=== PATIENT | female | born 1945 | race Caucasian/White ===

== ENCOUNTER → 2021-06-03 13:23 | Outpatient (CLI) | payer MEDICARE, SELFPAY ==
--- NOTE | ~2021-06-03 | DEXA_ITS ---
Bone Density Report Name: Mary Hoang Age: 75 Sex: Female Ethnicity: White Date of : 1945 Indication: postmenopausal; screening for osteoporosis; height loss; history of glucocorticoids; asthma or emphysema; Referring Provider: Andrew Del Rio Study: Bone densitometry was performed. Exam Date: June 03, 2021 Accession number: [id number] Bone Density: Region BMD T-score Z-score Classification AP Spine (L1-L4) 1.124 0.7 3.0 Normal Femoral Neck (Left) 0.779 -0.6 1.4 Normal Total Hip (Left) 1.047 0.9 2.6 Normal Femoral Neck (Right) 0.764 -0.8 1.2 Normal Total Hip (Right) 0.968 0.2 1.9 Normal Total Hip Mean 1.008 0.6 2.3 Normal World Health Organization criteria for BMD impression classify patients as: Normal (T-score at or above -1.0), Osteopenia (T-score between -1.0 and -2.5), or Osteoporosis (T-score at or below -2.5). 10-year Fracture Risk: FRAX not reported because: All T-scores for Spine Total, Hip Total, Femoral Neck at or above -1.0 Previous Exams: Region Exam Age BMD T-score BMD Change BMD Change Date g/cm2 vs Baseline vs Previous AP Spine(L1-L4) 06/03/2021 75 1.124 0.7 -0.151* -0.122* 07/01/2018 72 1.246 1.8 -0.029* -0.077* 05/27/2016 70 1.323 2.5 0.049* 0.019 08/11/2010 64 1.304 2.3 0.029* 0.017 04/25/2007 61 1.287 2.2 0.012 0.012 10/17/2004 59 1.275 2.1 Total Hip(Left) 06/03/2021 75 1.047 0.9 -0.047* -0.082* 07/01/2018 72 1.128 1.5 0.034* -0.058* 05/27/2016 70 1.187 2.0 0.093* -0.002 08/11/2010 64 1.188 2.0 0.094* 0.075* 04/25/2007 61 1.113 1.4 0.019 0.019 10/17/2004 59 1.094 1.2 Total Hip(Right) 06/03/2021 75 0.968 0.2 -0.136* -0.076* 07/01/2018 72 1.044 0.8 -0.060* -0.047* 05/27/2016 70 1.091 1.2 -0.013 -0.016 08/11/2010 64 1.107 1.4 0.003 0.014 04/25/2007 61 1.094 1.2 -0.011 -0.011 10/17/2004 59 1.105 1.3 *Denotes significance at 95% confidence level, LSC for AP Spine = 0.022 g/cm2, LSC for Total Hip = 0.027 g/cm2 Clinical Information Provided by Patient: Has taken Glucocorticoids Has used the following medications: Vitamin D, Calcium, Levothyroxine Has the following medical conditions: Asthma or Emphysema
== END ==
PROVIDERS: PCP Physician Assistant; Visit Provider Physician Assistant
DX: M81.0 Age-related osteoporosis without current pathological fracture (principal)
CPT/HCPCS: 77080

== ENCOUNTER 2021-07-03 07:39 | Outpatient (RCR) | payer MEDICARE, SELFPAY ==
[2021-07-03 15:54] LABS: Cortisol Baseline 8.17 ug/dL
== END 2021-10-01 23:59 | disposition home or self-care (01) ==
LOC: ANHVASCINF 07:39
PROVIDERS: PCP Physician Assistant; Visit Provider Internal Medicine Endocrinology, Diabetes & Metabolism
DX: E27.40 Unspecified adrenocortical insufficiency (principal); E03.9 Hypothyroidism, unspecified; R79.89 Other specified abnormal findings of blood chemistry
CPT/HCPCS: 36415; 82533; 96372; J0834

== ENCOUNTER 2022-03-12 15:08 | Outpatient (CLI) | payer MEDICARE, SELFPAY ==
[2022-03-12 17:15] LABS: Anion Gap 10 mmol/L (8-16); Blood Urea Nitrogen 12 mg/dL (7-17); Calcium 9.1 mg/dL (8.4-10.2); Carbon Dioxide 26 mmol/L (22-30); Chloride 97 mmol/L (98-107); Estimated Glomerular Filt Rate > 60; Glucose 104 mg/dL (65-110); Potassium 3.8 mmol/L (3.4-5.0); Sodium 133 mmol/L (137-145)
[2022-03-12 17:33] LABS: Free T4 Free Thyroxine 1.41 ng/mL (0.78-2.19)
[2022-03-12 17:46] LABS: Thyroid Stimulating Hormone 0.163 uIU/mL (0.465-4.680)
== END 2022-03-12 15:09 | disposition home or self-care (01) ==
LOC: ANHWCLAB 15:11
PROVIDERS: PCP Family Medicine; Visit Provider Internal Medicine Endocrinology, Diabetes & Metabolism
DX: E03.9 Hypothyroidism, unspecified (principal); E27.40 Unspecified adrenocortical insufficiency
CPT/HCPCS: 36415; 80048; 84439; 84443

== ENCOUNTER 2022-05-13 14:06 | Outpatient (CLI) | payer MEDICARE, SELFPAY ==
[2022-05-13 17:11] LABS: Thyroid Stimulating Hormone 0.387 uIU/mL (0.465-4.680)
[2022-05-13 19:10] LABS: Alanine Aminotransferase 13 U/L (6-35); Albumin Level 4.3 g/dL (3.5-5.1); Alkaline Phosphatase 73 U/L (38-126); Anion Gap 8 mmol/L (8-16); Aspartate Amino Transferase 26 U/L (14-36); Bilirubin,Total 0.1 mg/dL (0.2-1.3); Blood Urea Nitrogen 15 mg/dL (7-17); Calcium 9.3 mg/dL (8.4-10.2); Carbon Dioxide 26 mmol/L (22-30); Chloride 101 mmol/L (98-107); Cholesterol 189 mg/dL (0-200); Estimated Glomerular Filt Rate > 60; Glucose 109 mg/dL (65-110); HDL Direct 84 mg/dL; Sodium 135 mmol/L (137-145); Triglycerides 174 mg/dL (<150)
[2022-05-13 19:21] LABS: LDL Cholesterol Direct 69 mg/dL
[2022-05-13 20:23] LABS: Free T4 Free Thyroxine 1.19 ng/mL (0.78-2.19)
== END 2022-05-13 14:07 | disposition home or self-care (01) ==
LOC: ANHWCLAB 14:14
PROVIDERS: PCP Family Medicine; Visit Provider Internal Medicine Endocrinology, Diabetes & Metabolism
DX: E27.40 Unspecified adrenocortical insufficiency (principal); E03.9 Hypothyroidism, unspecified; I10 Essential (primary) hypertension; E78.5 Hyperlipidemia, unspecified
CPT/HCPCS: 36415; 80053; 80061; 84439; 84443

== ENCOUNTER 2024-02-08 18:25 | Inpatient (IN) | payer MEDICARE, SELFPAY ==
[2024-02-08] VITALS (7 sets, daily range): BP systolic 130–159; BP diastolic 64–86; PULSE 62–96; RESP 10–20; TEMP 36.6; O2SAT 100; BMI 25.0
--- NOTE | ~2024-02-08 | CT_ITS ---
EXAMINATION: CT chest abdomen pelvis w con DATE: 02/08/2024 20:05 INDICATION: CA w/u, R breast mass . TECHNIQUE: Computed tomography (CT) of the chest, abdomen, and pelvis was performed with 100 mL Omnip aque-350 intravenous contrast. Automated exposure control and iterative reconstruction technique were employed. The dose-length product was 466.18 mGy-cm. COMPARISON: CT abdomen 10/27/2018 FINDINGS: CHEST: Thoracic aorta: No significant dilation. No dissection. Lung parenchyma and airways: 3 mm triangular peripheral left lower lobe nodule, likely intrapulmonary lymph node. Minimal lingular atelectasis. Thoracic inlet, axillae and chest wall: 7.7 cm heterogeneously enhancing right breast mass. No thyroi d mass. 6 mm inferior right axillary node. Mediastinum: No mass or lymphadenopathy. Heart and pericardium: Normal heart size. No pericardial effusion. Coronary artery calcifications: Absent. Pleura: No effusion or mass. Thoracic bones: No acute osseous finding in the chest. ACDF hardware. ABDOMEN/PELVIS: Liver: 8 mm simple right liver lobe cyst. Biliary/Gallbladder: Gallbladder is absent. Mild intra and extrahepatic duct dilation likely secondar y to cholecystectomy. Pancreas: No mass or duct dilation. Spleen: Normal. Adrenals:No mass. Kidneys: No suspicious mass, obstructing stone, or hydronephrosis. Simple left lower pole cyst. GI tract: Mild distal esophageal and gastric wall edema. No small or large bowel dilation. Appendix n ot confidently visualized. Diverticulosis without diverticulitis. Mesentery/Peritoneum: No ascites, mass, or free air. Retroperitoneum: No mass Atherosclerotic abdominal aortic and/or arterial calcifications. Pelvis: Pelvic organs are within normal limits Soft Tissues: Soft tissues and body wall unremarkable. Abdominopelvic bones: No acute osseous finding in the abdomen/pelvis. IMPRESSION: 7.7 cm right breast mass. 6 mm right axillary node, not pathologic based solely on size criteria, but distinctly different in s ize than the adjacent axillary lymph nodes. Otherwise, no CT evidence of metastatic disease. Mild esophagitis/gastritis. Reviewed, dictated and finalized at location K. IMPRESSION: 7.7 cm right breast mass. 6 mm right axillary node, not pathologic based solely on size criteria, but dis tinctly different in size than the adjacent axillary lymph nodes. Otherwise, no CT evidence of metastatic disease. Mild esophagitis/gastritis.
--- NOTE | ~2024-02-08 | NM_ITS ---
NM sentinel node inject only 02/12/2024 06:14 CDT INDICATION: Right breast cancer TECHNIQUE: 0.987 Millicuries Tc 99m filtered sulfur colloid was injected and 4 aliquots in the anteri or upper outer quadrant of the breast near the areola. No images were obtained. IMPRESSION: 1: Status post right breast sentinel lymph node radiopharmaceutical injection. Reviewed, dictated and finalized at location A.
--- NOTE | 2024-02-08 18:46 | ED.GENADULT ---
HPI - General Adult General Chief complaint: Unspecified <SOTERO Roman Last Filed: 02/10/24 09:19> Stated complaint: right breast bleeding <SOTERO Roman Last Filed: 02/10/24 09:19> Time Seen by Provider: 02/08/24 18:40 <Elizabeth Morel PA-C - Last Filed: 02/10/24 09:19> Focused HPI: Patient is a 78-year-old female, with past medical history of adrenal insufficiency, hypothyroidism, who presents the ED with report of bleeding from her right breast. Patient reports she had bleeding from her breast this morning, states it was unlike anything she has ever seen. at bedside reports blood was all over their bathroom. Patient with obvious breast mass on exam. She states this has been present for forever , at least the last 6 months. She has not been evaluated for this previously. Has not seen her PCP for this. reports patient has had some weight loss recently, unable to quantify. Daughter also reports patient has had intermittent dizzy spells over the last couple months. Denies fevers. GENERAL: Elderly, frail, and in no acute distress. HEAD: Normocephalic, atraumatic. CHEST: Clear to auscultation. ?No respiratory distress. HEART: Regular rate and rhythm.? MSK: Large right breast mass, encompassing most of breast tissue, firm, indurated, increased vascularity, unable to identify nipple. Large area of skin erosion inferiorly with no active bleeding. SKIN: Pallor NEURO: ?Alert and oriented x3. Patient screened in triage and initial orders placed.? ?Additional care and disposition to be based upon?diagnostic testing and treatment. <SOTERO Roman Last Filed: 02/10/24 09:19> Source: patient <SOTERO Roman Last Filed: 02/10/24 09:19> Mode of arrival: ambulatory <SOTERO Roman Last Filed: 02/10/24 09:19> Limitations: no limitations <SOTERO Roman Last Filed: 02/10/24 09:19> History of Present Illness HPI narrative: 78-year-old female presenting with a bleeding breast wound. States that she is unsure how long it has been there, thinks that it has been at least several months. Denies any pain. She has not mentioned it to her family. States that it has been oozing blood and some liquid off and on that she sometimes just covers it with a piece of toilet paper. Today it started bleeding and her saw it for the 1st time and made her come to the ER. Bleeding resolved prior to arrival. States that she has been feeling fatigued lately with decreased appetite but denies any other complaints. <Ofelia Fan MD - Last Filed: 02/11/24 21:38> Related Data Home medications: Home Medications Medication Instructions Recorded Confirmed loratadine 10 mg tablet (Claritin) 10 mg PO DAILY PRN allergic 04/22/22 02/08/24 symptoms cholecalciferol (vitamin D3) 25 25 mcg PO DAILY 09/15/22 02/08/24 mcg (1,000 unit) capsule acetaminophen 325 mg capsule 325 mg PO Q6H PRN Pain (Scale 07/06/23 02/08/24 (Tylenol) Score 4-6) albuterol sulfate 90 mcg/actuation 1 puff inhalation Q4H PRN 02/09/24 02/09/24 aerosol inhaler Shortness Of Breath Or Wheezing <Elizabeth Morel PA-C - Last Filed: 02/10/24 09:19> Allergies/adverse reactions: Allergies Allergy/AdvReac Type Severity Reaction Status Date / Time No Known Allergies Allergy Verified 02/08/24 18:26 <Elizabeth Morel PA-C - Last Filed: 02/10/24 09:19> Review of Systems Review of Systems: All systems reviewed & are unremarkable except as noted in HPI and below <Ofelia Fan MD - Last Filed: 02/11/24 21:38> [facility] Past Medical History Medical History: Medical History Adrenal insufficiency Arthritis Asthma Benign hypertension BMI 31.0-31.9,adult Cervical disc disease Chronic GERD 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
[2024-02-08 19:30] LABS: Alanine Aminotransferase 16 U/L (6-35); Albumin Level 3.5 g/dL (3.5-5.1); Alkaline Phosphatase 61 U/L (38-126); Anion Gap 4 mmol/L (8-16); Aspartate Amino Transferase 29 U/L (14-36); Bilirubin,Total 0.6 mg/dL (0.2-1.3); Blood Urea Nitrogen 9 mg/dL (7-17); Calcium 8.9 mg/dL (8.4-10.2); Carbon Dioxide 28 mmol/L (22-30); Chloride 91 mmol/L (98-107); Estimated CRCL calculation 49 ml/min; Estimated Glomerular Filt Rate > 60; Glucose 129 mg/dL (65-110); Lactic Acid Reflex 1.6 mmol/L (0.7-2.0); Sodium 123 mmol/L (137-145)
[2024-02-08 19:33] LABS: Basophils Percent Auto 0.2 % (0.2-1.2); Hematocrit 30.7 % (37.0-47.0); Hemoglobin 9.9 g/dL (12.0-15.0); Immature Granulocyte Absolute 0.07 K/mm3 (0.00-0.031); Immature Granulocyte Percent A 0.5 % (0-0.5); Lymphocytes Absolute Auto 0.81 K/mm3 (0.9-3.2); Lymphocytes Percent Auto 6.1 % (18.3-44.2); Mean Corpuscular HGB Conc 32.2 g/dl (32-36); Mean Corpuscular Hemoglobin 30.9 pg (26-34); Mean Corpuscular Volume 95.9 fl (80-100); Mean Platelet Volume 10.4 fl (7.4-10.4); Monocytes Absolute Auto 1.3 K/mm3 (0.1-0.6); Monocytes Percent Auto 9.7 % (2.6-8.5); Neutrophils Absolute Auto 11.1 K/mm3 (1.3-6.7); Neutrophils Percent Auto 83.5 % (45.5-73.1); Platelet Count Result 303 k/mm3 (150-375); Red Cell Distribution Width 13.3 % (11.5-14.5); White Blood Count 13.3 K/mm3 (4.5-10.0)
[2024-02-08 19:39] LABS: INR 0.9; Partial Thromboplastin Time 25.1 Seconds (22.3-36.8); Prothrombin Time 12.8 Seconds (11.1-14.7)
[2024-02-08] MEDS: SODIUM CHLORIDE 0.9% IV 1,000 ML 999 ML IV CONT (21:50)
--- NOTE | 2024-02-08 21:53 | PC.NURSE ---
dressed wound with gauze.
[2024-02-08 21:55] LABS: Appearance Urine Clear (Clear); Bacteria Urine None Seen /hpf; Bilirubin Urine Negative (Negative); Blood Urine 2+ (Negative); Color Urine Yellow (Yellow); Glucose Urine UA Negative (Negative); Ketones Urine Negative (Negative); Leukocyte Esterase Ur 1+ LEU/UL (Negative); Nitrate Urine Negative (Negative); Non Pathogenic Casts 0-2; Protein Urine Negative (Negative); RBC Urine 0-2 /hpf (0-2); Squamous Epithelial Cell Urine None Seen /hpf (Few); Urobilinogen Urine 0.2 mg/dL (<2.0)
[2024-02-08 22:02] LABS: Add Urine Microscopic? YES; Specific Grav Ur 1.036 (1.001-1.035)
--- NOTE | 2024-02-08 22:28 | PM.IMHP ---
H&P: HPI History of Present Illness Date/Time: 02/08/24 22:28 Chief Complaint: right breast mass Narrative: This is a 78-year-old female with past medical history significant for adrenal insufficiency, on chronic steroid therapy. Patient presents to the emergency room due to right breast mass and bleeding she remembers this to be present less than 3 months but can not really tell is nonpainful. Preliminary workup was significant for CT of the chest right breast mass. Patient is been admitted for further evaluation management and treatment. EXAMINATION: CT chest abdomen pelvis w con DATE: 02/08/2024 20:05 INDICATION: CA w/u, R breast mass . TECHNIQUE: Computed tomography (CT) of the chest, abdomen, and pelvis was performed with 100 mL Omnipaque-350 intravenous contrast. Automated exposure control and iterative reconstruction technique were employed. The dose-length product was 466.18 mGy-cm. COMPARISON: CT abdomen 10/27/2018 FINDINGS: CHEST: Thoracic aorta: No significant dilation. No dissection. Lung parenchyma and airways: 3 mm triangular peripheral left lower lobe nodule, likely intrapulmonary lymph node. Minimal lingular atelectasis. Thoracic inlet, axillae and chest wall: 7.7 cm heterogeneously enhancing right breast mass. No thyroid mass. 6 mm inferior right axillary node. Mediastinum: No mass or lymphadenopathy. Heart and pericardium: Normal heart size. No pericardial effusion. Coronary artery calcifications: Absent. Pleura: No effusion or mass. Thoracic bones: No acute osseous finding in the chest. ACDF hardware. ABDOMEN/PELVIS: Liver: 8 mm simple right liver lobe cyst.? Biliary/Gallbladder: Gallbladder is absent. Mild intra and extrahepatic duct dilation likely secondary to cholecystectomy. Pancreas: No mass or duct dilation. Spleen: Normal. Adrenals:No mass. Kidneys: No suspicious mass, obstructing stone, or hydronephrosis. Simple left lower pole cyst. GI tract: Mild distal esophageal and gastric wall edema. No small or large bowel dilation. Appendix not confidently visualized. Diverticulosis without diverticulitis. Mesentery/Peritoneum: No ascites, mass, or free air. Retroperitoneum: No mass Atherosclerotic abdominal aortic and/or arterial calcifications. Pelvis: Pelvic organs are within normal limits Soft Tissues: Soft tissues and body wall unremarkable. Abdominopelvic bones:? No acute osseous finding in the abdomen/pelvis. IMPRESSION: 7.7 cm right breast mass. 6 mm right axillary node, not pathologic based solely on size criteria, but distinctly different in size than the adjacent axillary lymph nodes. Otherwise, no CT evidence of metastatic disease. Mild esophagitis/gastritis. Review of Systems Constitutional: Comments: Right breast mass bleed [facility] Past Medical History Medical History (Updated 02/09/24 @ 02:02 by Cyrus Henderson MD) Adrenal insufficiency Arthritis Asthma Benign hypertension BMI 31.0-31.9,adult Cervical disc disease Chronic GERD 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ne Hypertension Hypothyroidism (acquired) Mild intermittent asthma, uncomplicated Mixed hyperlipidemia Osteoarthritis, multiple sites Pericardial effusion Postmenopausal Sacroiliitis jun 2014 Secondary adrenal insufficiency Situational anxiety Thyroid disease Surgical History Surgical History H/O breast biopsy 2007 H/O Spinal surgery Cervical discectomy 2016 H/O: hysterectomy 2012 History of knee replacement 2019 Hx of right heart catheterization 2007 Family History Family History Father Family history of hypercholesterolemia Family history of cardiovascular disease Acute myocardial infarction Family history of Alzheimer's disease Family history of coronary artery disease Mother Family history of hypercholesterolemia Sibling Fami
--- NOTE | 2024-02-08 23:38 | ADMGEN ---
This patient, Mary Hoang, was admitted to [facility] Surg Room 311-01. Patient/family oriented to hospital policies and general routines including ID bracelet, bed and alarms, visiting hours, pain management, procedures, bathroom and other care routines, personal items, smoking policy, room service/diet, and visiting hours. Information on how to activate the Rapid Response Team has been discussed. Patient/Family are encouraged to report perceived risks to care and to ask questions if they do not understand what they are told or what they should do.
[2024-02-09 06:00] VITALS: BP 141/54; PULSE 67; RESP 20; TEMP 36.6; O2SAT 98
[2024-02-09] MEDS: LEVOTHYROXINE SODIUM 75 MCG TABLET BY MOUTH (06:21)
--- NOTE | 2024-02-09 07:55 | PM.IMPN ---
Progress Note: A&P Assessment and Plan (1) Breast mass, right: Code(s): N63.10 - Unspecified lump in the right breast, unspecified quadrant Status: Acute Assessment and Plan: Over the past several months patient has had a growing right breast mass. The mass is approximately the size of a baseball and has a central ulceration in the periareolar region with purulent drainage. Yesterday the mass began to bleed significantly, prompting the patient to come to the hospital. Labs showed a H&H of 9.9/30.7. Prior H&H was 12.9/39.9 in October 2023. No signs of active bleeding. CT chest/abdomen pelvis revealed a 7.7 cm right breast mass with a 6 mm right axillary node (distinctly different in size compared to adjacent axillary nodes). Most recent mammogram was 2017 which was normal. Concern for metastatic breast cancer. General surgery following. Wound care/dressing changes Ultrasound guided biopsy in radiology Oncology consult (2) Acute hyponatremia: Code(s): E87.1 - Hypo-osmolality and hyponatremia Status: Acute Assessment and Plan: Patient remains hyponatremic after receiving 1L NS. 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 Will continue to monitor. Continue NS Monitor serum sodium Serum osmolality Urine osmolality Urine sodium (3) Hypothyroidism (acquired): Code(s): E03.9 - Hypothyroidism, unspecified Status: Acute Assessment and Plan: TSH 09/02/23: 0.63. Patient well controlled on home medications. Continue home levothyroxine 75 mcg daily (4) Adrenal insufficiency: Code(s): E27.40 - Unspecified adrenocortical insufficiency Status: Acute Assessment and Plan: Patient on chronic steroid therapy. Continue home prednisone 5 mg daily Time Spent With Patient Time with patient: 25 - 35 minutes Subjective Date/time seen: 02/09/24 07:55 Interval history: 78 year old female with past medical history of adrenal insufficiency on chronic steroid therapy and hypothyroidism presented to the ED due to a right breast mass with associated bleeding. Spoke with patient with in the room with patient permission. She states this right breast mass/ulcer has been growing for several months. The ulcer has minimal clear bloody drainage intermittently, however yesterday the bleeding did not stop and covered the bathroom. In the past week or so she has noticed more purulent drainage from the ulcer. She has not noticed a weight change in herself, but she states that her daughter has brought it up several times that she appears thinner. She denies pain to the area. She denies chest pain, shortness of breath, nausea, vomiting, and changes in bowel/bladder. Review of Systems Review of Systems: All systems reviewed & are unremarkable except as noted in HPI and below Exam Narrative: AF HR 67 RR 20 SpO2 98 BP 141/54 General: female in no acute respiratory distress who is nontoxic appearing, lying semi recumbent in bed. HEENT: Normocephalic. Atraumatic. Pupils equal round reactive to light. Extraocular movement intact. Sclera clear and anicteric. No facial asymmetry. Chest: Lungs are clear to auscultation bilaterally. No wheezes or crackles. CV: Heart was regular rate and rhythm. S1-S2. No murmurs, gallops, or rubs. Abd: Abdomen was soft. Nontender. Nondistended. Postive bowel sounds. No organomegaly or masses. Ext: No clubbing, cyanosis, or edema. 2+ DP pulses bilaterally. Neuro: Patient is alert and oriented x4. Strength is 5/5 in both upper and lower extremities. Speech is clear. Psych: Normal nood and affect. Patient is pleasant and cooperative. Skin: Left breast appears normal. Right breast with large baseball sized mass with central ulceration in the periareolar region with purulent drainage. Objective Data Vital Signs Vital Signs: Vital Signs - 24 hr 02/08/24 18:28 02/08/24 21:45 02/08/24 21:53 Temperature 98 F Pulse Rate 96 70 65 Resp
[2024-02-09] MEDS: predniSONE 5 MG TABLET PO (08:29)
[2024-02-09] MEDS: MONTELUKAST SODIUM 10 MG TABLET PO (08:29)
[2024-02-09] MEDS: CHOLECALCIFEROL 1,000 UNITS TABLET 1000 UNITS PO (08:29)
[2024-02-09] MEDS: SIMVASTATIN 10 MG TABLET BY MOUTH (08:29)
[2024-02-09 08:42] LABS: Hematocrit 29.1 % (37.0-47.0); Hemoglobin 9.3 g/dL (12.0-15.0); Mean Corpuscular Hemoglobin 30.8 pg (26-34); Mean Corpuscular Volume 96.4 fl (80-100); Mean Platelet Volume 10.5 fl (7.4-10.4); Platelet Count Result 310 k/mm3 (150-375); Red Blood Count 3.02 M/mm3 (4.2-5.4); Red Cell Distribution Width 13.5 % (11.5-14.5); White Blood Count 11.1 K/mm3 (4.5-10.0)
[2024-02-09 08:57] LABS: Anion Gap -1 mmol/L (8-16); Blood Urea Nitrogen 5 mg/dL (7-17); Calcium 8.9 mg/dL (8.4-10.2); Carbon Dioxide 32 mmol/L (22-30); Chloride 95 mmol/L (98-107); Estimated CRCL calculation 56 ml/min; Estimated Glomerular Filt Rate > 60; Glucose 92 mg/dL (65-110); Potassium 3.6 mmol/L (3.4-5.0); Sodium 126 mmol/L (137-145)
[2024-02-09 09:43] VITALS: BMI 25.0
--- NOTE | 2024-02-09 12:05 | PM.CNGS ---
Assessment and Plan Assessment and plan (1) Breast mass, right: Code(s): N63.10 - Unspecified lump in the right breast, unspecified quadrant Status: Acute Assessment and Plan: Patient presents with a large ulcerated right breast mass that has been growing over at least the past few months. This is very concerning for a large malignant mass. Discussed the case with Dr. Locke. We will initiate local wound care with daily dressing changes for the ulcerated area. We will also order an ultrasound-guided biopsy of the right breast mass away from the necrotic open ulcer to be done in Radiology. Given that this likelihood of this being breast cancer, we will also consult Oncology for their recommendations. We will wait for biopsy results, but she will likely eventually require a right mastectomy at some point. Will follow along. (2) Acute hyponatremia: Code(s): E87.1 - Hypo-osmolality and hyponatremia Status: Acute (3) Adrenal insufficiency: Code(s): E27.40 - Unspecified adrenocortical insufficiency Status: Acute (4) Hypothyroidism (acquired): Code(s): E03.9 - Hypothyroidism, unspecified Status: Acute (5) Mixed hyperlipidemia: Code(s): E78.2 - Mixed hyperlipidemia Status: Acute Plan I have discussed the patient's case and plan of care with Dr. Locke. History of Present Illness Consult details Consult date: 02/09/24 Reason for consult: other (Right breast mass) Requesting physician: Jus Locke, DO Narrative: This is a 78-year-old woman who we have been asked to see in surgical consultation for a right breast mass. She presented to the ER yesterday due to bleeding from her right breast. The patient reports noticing a breast mass over the past few months. She is unable to give definitive time lines and is fairly vague when describing her history. She first told me she initially noticed the wound, but later said maybe it was a lump. Regardless, she reports noticing some clear bloody drainage intermittently from this ulcer. Over the past few weeks, her drainage became more brewer in purulence. There is an ulcerated area on her right breast that has been there for a couple months. She denies any pain to this area. She does feel like it has rapidly grown more recently. The mass is discolored and reddened, which has also been present for a few months. She denies seeing any medical provider for this problem in the past. She had not told her family. Yesterday, she had bleeding from this right breast mass at home. She reports a significant amount of bleeding covering the counter and 2 rugs on the bathroom floor. She then showed heard has been, who was unaware of the right breast mass. He then took her directly to the ER. Labs showed hemoglobin of 9.9 and hematocrit 30.7. Most recent H&H showed a hemoglobin of 12.9 in October of 2023. Labs also showed hyponatremia with a sodium of 123. CT scan of the chest abdomen and pelvis showed a 7.7 cm right breast mass and a 6 mm right axillary node that is distinctly different in size than the adjacent axillary lymph nodes. No other CT evidence of metastatic disease. She was admitted to the hospitalist service. We have been consulted for the breast mass. She last had a mammogram in 2017 from her PCP that was normal, but no other breast imaging since that time. She denies any additional complaints, but family reports she has been more fatigued and appears to have lost weight over the past few months. Labs this morning showed her hgb was stable at 9.3. No issues with any bleeding from the right breast ulcer since admission. This stopped prior to getting to the ER. Review of Systems Review of Systems: All systems reviewed & are unremarkable except as noted in HPI and below PMFSH Past Medical History Medical History Adrenal insufficiency Arthritis Asthma Benign hypertension BMI
[2024-02-09 13:52] VITALS: BP 115/50; PULSE 81; RESP 20; TEMP 36.9; O2SAT 99
[2024-02-09] MEDS: SODIUM CHLORIDE 0.9% IV 1,000 ML 999 ML IV CONT (14:00)
[2024-02-09 14:26] LABS: Sodium 126 mmol/L (137-145)
[2024-02-09 16:19] LABS: Sodium Urine Random 116 meq/L
--- NOTE | 2024-02-09 17:25 | PDONCCN ---
HPI - Date of Consult Date/Time: 02/09/24 17:25 Requesting Physician: Cyrus Henderson MD Primary Care Provider: Yolanda Dougherty MD - Consult Narrative Reason for consult: Locally advanced breast cancer Narrative: Mary Hoang is a 78 year old female with history of adrenal insufficiency, hypertension hypothyroidism was brought into the hospital with enlarging right breast mass with open wound and drainage. According to the patient she notice initial lump about 4 months ago with slowly started getting bigger with recent drainage and discharge. She denies any previous history of malignancy. CT chest abdomen and pelvis was performed that showed 7.7 cm right breast mass with 6 mm right axillary otherwise no evidence of metastatic disease. Patient has lost 5-10 lb weight in last 3-4 months duration. She denies any bone pain lumps bumps and lymphadenopathy. Blood workup showed anemia with hemoglobin of 9.3. Review of Systems - Review of Systems All systems reviewed & are unremarkable except as noted in HPI and [facility] Medical History: Medical History (Last Reviewed 02/09/24 @ 12:11 by JOHNNY Cole) Adrenal insufficiency Arthritis Asthma Benign hypertension BMI 31.0-31.9,adult Cervical disc disease Chronic GERD 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ne Hypertension Hypothyroidism (acquired) Mild intermittent asthma, uncomplicated Mixed hyperlipidemia Osteoarthritis, multiple sites Pericardial effusion Postmenopausal Sacroiliitis jun 2014 Secondary adrenal insufficiency Situational anxiety Thyroid disease Surgical History: Surgical History (Last Reviewed 02/09/24 @ 12:12 by JOHNNY Cole) H/O breast biopsy 2007 H/O Spinal surgery Cervical discectomy 2016 H/O: hysterectomy 2012 History of knee replacement 2019 Hx of right heart catheterization 2006 Family History: Family History (Last Reviewed 02/08/24 @ 21:49 by Ofelia Fan MD) Father Family history of hypercholesterolemia Family history of cardiovascular disease Acute myocardial infarction Family history of Alzheimer's disease Family history of coronary artery disease Mother Family history of hypercholesterolemia Sibling Family history of hypercholesterolemia Malignant neoplasm of prostate Grandparent Family history of cardiac disorder Malignant neoplasm of prostate Other Family history of congestive heart failure Family history of elevated blood lipids Family history of malignant neoplasm of breast in first degree relative Hypertension - Social History Social History: Social History (Last Reviewed 02/09/24 @ 12:12 by Jemma B. Wasmuth, [employer]) Gender Identity: Gender identity (if verbalized by the patient): Female Sexual Orientation: Sexual Orientation (if Verbalized by the Patient): Straight or Heterosexual Alcohol Use: Alcohol intake: never Substance Use: Substance use: never Substance use type: does not use Others: Spiritual care concerns: No Agree to blood products: Yes Living Arrangements: Living arrangements: with family Oppucation/Education: Occupation/Education: retired Smoking Status: Smoking status: Never smoker Second hand tobacco smoke exposure: No Social Determinants of Health: Do You Feel Safe in your Home?: Yes Has the Lack of Transportation Kept You From Medical Appointments or From Getting Medications?: No Within the Past 12 Months, Were You Worried Whether Your Food Would Run Out Before You Got Money to Buy More?: Never True What is Your Housing Situation Today?: I Have Housing Are You Worried That in the Next 2 Months, You May Not Have Your Own Housing to Live In?: No Do You Have Trouble Paying Your Heating Or Electricity Bill?: No Do You Have Trouble Paying For Medicines?: No Are You Currently Unemployed and Looking for Work?: No Highest Level
[2024-02-09 20:00] VITALS: O2SAT 99
[2024-02-09 21:56] VITALS: BP 129/57; PULSE 75; RESP 18; TEMP 37; O2SAT 99
[2024-02-10 06:00] VITALS: BP 143/59; PULSE 65; RESP 18; TEMP 36.8; O2SAT 98
[2024-02-10 06:55] LABS: Hematocrit 25.2 % (37.0-47.0); Hemoglobin 8.1 g/dL (12.0-15.0); Mean Corpuscular HGB Conc 32.1 g/dl (32-36); Mean Corpuscular Hemoglobin 31.9 pg (26-34); Mean Corpuscular Volume 99.2 fl (80-100); Mean Platelet Volume 10.5 fl (7.4-10.4); Platelet Count Result 267 k/mm3 (150-375); Red Blood Count 2.54 M/mm3 (4.2-5.4); Red Cell Distribution Width 13.5 % (11.5-14.5); White Blood Count 7.7 K/mm3 (4.5-10.0)
[2024-02-10 07:08] LABS: Anion Gap -4 mmol/L (8-16); Blood Urea Nitrogen 7 mg/dL (7-17); Calcium 8.9 mg/dL (8.4-10.2); Carbon Dioxide 32 mmol/L (22-30); Chloride 99 mmol/L (98-107); Estimated CRCL calculation 49 ml/min; Estimated Glomerular Filt Rate > 60; Glucose 92 mg/dL (65-110); Potassium 3.9 mmol/L (3.4-5.0); Sodium 127 mmol/L (137-145)
--- NOTE | 2024-02-10 07:38 | PM.IMPN ---
Progress Note: A&P Assessment and Plan (1) Breast mass, right: Code(s): N63.10 - Unspecified lump in the right breast, unspecified quadrant Status: Acute Assessment and Plan: Over the past several months patient has had a growing right breast mass. The mass is approximately the size of a baseball and has a central ulceration in the periareolar region with purulent drainage. Yesterday the mass began to bleed significantly, prompting the patient to come to the hospital. Labs showed a H&H of 9.9/30.7. Prior H&H was 12.9/39.9 in October 2023. No signs of active bleeding. CT chest/abdomen pelvis revealed a 7.7 cm right breast mass with a 6 mm right axillary node (distinctly different in size compared to adjacent axillary nodes). Most recent mammogram was 2017 which was normal. Concern for metastatic breast cancer. Patient was seen by oncology and general surgery who discussed a right mastectomy with sentinel lymph node biopsy tomorrow rather than undergoing a percutaneous biopsy. Patient is agreeable to the mastectomy, plan for surgery tomorrow. Wound care/dressing changes NPO for surgery starting at 0000 Ca 15-3 pending (2) Acute hyponatremia: Code(s): E87.1 - Hypo-osmolality and hyponatremia Status: Acute Assessment and Plan: Patient remains hyponatremic after receiving NS. Urine sodium 116 and BUN 7. Possible SIADH. Will fluid restrict patient at this time. Monitor serum sodium Serum osmolality pending Urine osmolality pending (3) Hypothyroidism (acquired): Code(s): E03.9 - Hypothyroidism, unspecified Status: Acute Assessment and Plan: TSH 09/02/23: 0.63. Patient well controlled on home medications. Continue home levothyroxine 75 mcg daily (4) Adrenal insufficiency: Code(s): E27.40 - Unspecified adrenocortical insufficiency Status: Acute Assessment and Plan: Patient on chronic steroid therapy. Continue home prednisone 5 mg daily Time Spent With Patient Time with patient: 25 - 35 minutes Subjective Date/time seen: 02/10/24 07:38 Interval history: 78 year old female with past medical history of adrenal insufficiency on chronic steroid therapy and hypothyroidism presented to the ED due to a right breast mass with associated bleeding. Patient is lying in bed with family at bedside. Discussed patients plan of care with family with patients permission. Patient continues to deny any tenderness to the mass. Patient denies chest pain, shortness of breath, nausea, vomiting, changes in bowel and bladder. She was seen by general surgery today and will undergo a mastectomy tomorrow. Patient is agreeable to the treatment plan at this time. Review of Systems Review of Systems: All systems reviewed & are unremarkable except as noted in HPI and below Exam Narrative: AF HR 65 RR 18 SpO2 98 BP 143/59 General: female in no acute respiratory distress who is nontoxic appearing, lying semi recumbent in bed. HEENT: Normocephalic. Atraumatic. Pupils equal round reactive to light. Extraocular movement intact. Sclera clear and anicteric. Chest: Lungs are clear to auscultation bilaterlly. No wheezes or crackles. CV: Heart was regular rate and rhythm. S1-S2. No murmurs, gallops, or rubs. Abd: Abdomen was soft. Nontender. Nondistended. Postive bowel sounds. No organomegaly or masses. Ext: No clubbing, cyanosis, or edema. 2+ DP pulses bilaterally. Neuro: Patient is alert and oriented x4. Speech is clear. Psych: Normal nood and affect. Patient is pleasant and cooperative. Skin: Left breast appears normal. Right breast with large mass with central ulceration in the periareolar region with purulent drainage. Objective Data Vital Signs Vital Signs: Vital Signs - 24 hr 02/09/24 08:00 02/09/24 13:52 02/09/24 20:00 Temperature 98.4 F Pulse Rate 81 Respiratory Rate 20 Blood Pressure 115/50 L Pulse Oximetry 99 99 Oxygen Delivery Room Air Room
[2024-02-10] MEDS: predniSONE 5 MG TABLET PO (09:56)
[2024-02-10] MEDS: SIMVASTATIN 10 MG TABLET BY MOUTH (09:57)
[2024-02-10] MEDS: MONTELUKAST SODIUM 10 MG TABLET PO (09:57)
[2024-02-10] MEDS: CHOLECALCIFEROL 1,000 UNITS TABLET 1000 UNITS PO (09:57)
[2024-02-10 10:45] VITALS: O2SAT 97
--- NOTE | 2024-02-10 12:28 | PM.PNGS ---
Progress Note: A&P Assessment and Plan (1) Breast mass, right: Qualifiers: Breast mass location: subareolar Qualified Code(s): N63.41 - Unspecified lump in right breast, subareolar Code(s): N63.10 - Unspecified lump in the right breast, unspecified quadrant Status: Acute Assessment and Plan: I discussed patient with Dr. Atwood and discussed treatment options. Had thorough discussion with patient and family at bedside. With the large ulcerated mass, preop chemo will be high risk for infectious complications and will be more likely to interrupt chemotherapy. Urgent mastectomy will at least allow for skin to heal so that she can start chemo and hopefully tolerate treatment. Percutaneous biopsy won't help with treatment decisions much if we are just going to proceed with surgery tomorrow regardless. Patient feels comfortable undergoing mastectomy tomorrow. I have recommended right mastectomy with sentinel lymph node biopsy. I discussed procedure, risks, benefits, and alternatives. Questions answered. (2) Adrenal insufficiency: Code(s): E27.40 - Unspecified adrenocortical insufficiency Status: Acute (3) Acute hyponatremia: Code(s): E87.1 - Hypo-osmolality and hyponatremia Status: Acute Subjective Subjective Date/Time Seen: 02/10/24 12:28 Interval history: Patient remaining the same. Tolerating wound care. Exam Chest: Other: Large subareolar mass in right breast with ulcerated skin and foul smelling purulent drainage. Objective Data Vital Signs Vital Signs: Vital Signs - 24 hr 02/09/24 13:52 02/09/24 20:00 02/09/24 21:56 Temperature 36.9 C 37.0 C Pulse Rate 81 75 Respiratory Rate 20 18 Blood Pressure 115/50 L 129/57 L Pulse Oximetry 99 99 99 Oxygen Delivery Room Air 02/10/24 06:00 02/10/24 08:00 02/10/24 10:45 Temperature 36.8 C Pulse Rate 65 Respiratory Rate 18 Blood Pressure 143/59 H Pulse Oximetry 98 97 Oxygen Delivery Room Air Room Air Intake/Output Intake/Output: Intake & Output 02/07/24 02/08/24 02/09/24 02/10/24 23:59 23:59 23:59 23:59 Intake Total 1000 2485 Output Total 1800 352 Balance 1000 685 -352 Meds/Results Medications: Active Medications Generic Name Dose Route Start Last Admin Trade Name Freq PRN Reason Stop Dose Admin Acetaminophen 325 mg 02/09/24 05:05 Acetaminophen 325 Mg Tablet PO Q6H PRN Pain (Scale Score 4-6) Levothyroxine Sodium 75 mcg 02/09/24 06:30 02/10/24 05:38 Levothyroxine Sodium 75 Mcg Tablet BY MOUTH Not Given [email or web address] [facility] Levothyroxine Sodium 25 mcg 02/13/24 06:30 Levothyroxine Sodium 25 Mcg Tablet PO [email or web address] [facility] Levothyroxine Sodium 12.5 mcg 02/13/24 06:30 Levothyroxine Sodium 12.5 Mcg Tablet PO [email or web address] [facility] Loratadine 10 mg 02/09/24 05:05 Loratadine 10 Mg Tablet PO DAILY PRN allergic symptoms Montelukast Sodium 10 mg 02/09/24 09:00 02/10/24 09:57 Montelukast Sodium 10 Mg Tablet PO 10 mg DAILY CINDA Administration Prednisone 5 mg 02/09/24 08:00 02/10/24 09:56 Prednisone 5 Mg Tablet PO 5 mg DAILY@0800 CINDA Administration Simvastatin 10 mg 02/09/24 09:00 02/10/24 09:57 Simvastatin 10 Mg Tablet BY MOUTH 10 mg DAILY CINDA Administration Tramadol HCl 50 mg 02/09/24 05:05 Tramadol Hcl (*Crx) 50 Mg Tablet PO TID PRN Pain Rated 7-10 Vitamin D 1,000 units 02/09/24 09:00 02/10/24 09:57 Cholecalciferol 1,000 Units Tablet PO 1,000 units DAILY CINDA Administration Radiology Results: ITS Impressions Chest/Abdomen/Pelvis CT 02/08/24 20:11 IMPRESSION: 7.7 cm right breast mass. 6 mm right axillary node, not pathologic based solely on size criteria, but distinctly different in size than the adjacent axillary lymph nodes. Otherwise, no CT evidence of metastatic disease. Mild esophagitis/gastritis. Labs Labs: Laborator
[2024-02-10 13:45] LABS: Sodium 127 mmol/L (137-145)
[2024-02-10 14:00] VITALS: BP 112/49; PULSE 86; RESP 18; TEMP 36.8; O2SAT 99
[2024-02-10 20:12] VITALS: BP 116/53; PULSE 77; RESP 16; TEMP 36.8; O2SAT 98
[2024-02-11] VITALS (10 sets, daily range): BP systolic 130–151; BP diastolic 56–107; PULSE 75–96; RESP 16–20; TEMP 36.2–37.2; O2SAT 96–100
[2024-02-11 06:33] LABS: Hemoglobin 8.5 g/dL (12.0-15.0); Mean Corpuscular HGB Conc 31.5 g/dl (32-36); Mean Corpuscular Hemoglobin 30.7 pg (26-34); Mean Corpuscular Volume 97.5 fl (80-100); Mean Platelet Volume 10.3 fl (7.4-10.4); Platelet Count Result 304 k/mm3 (150-375); Red Blood Count 2.77 M/mm3 (4.2-5.4); Red Cell Distribution Width 13.4 % (11.5-14.5); White Blood Count 7.8 K/mm3 (4.5-10.0)
[2024-02-11] MEDS: LEVOTHYROXINE SODIUM 75 MCG TABLET BY MOUTH (06:47)
--- NOTE | 2024-02-11 07:25 | PM.IMPN ---
Progress Note: A&P Assessment and Plan (1) Breast mass, right: Qualifiers: Breast mass location: subareolar Qualified Code(s): N63.41 - Unspecified lump in right breast, subareolar Code(s): N63.10 - Unspecified lump in the right breast, unspecified quadrant Status: Acute Assessment and Plan: Over the past several months patient has had a growing right breast mass. The mass is approximately the size of a baseball and has a central ulceration in the periareolar region with purulent drainage. Yesterday the mass began to bleed significantly, prompting the patient to come to the hospital. Labs showed a H&H of 9.9/30.7. Prior H&H was 12.9/39.9 in October 2023. No signs of active bleeding. CT chest/abdomen pelvis revealed a 7.7 cm right breast mass with a 6 mm right axillary node (distinctly different in size compared to adjacent axillary nodes). Most recent mammogram was 2017 which was normal. Concern for metastatic breast cancer. Patient was seen by oncology and general surgery who discussed a right mastectomy with sentinel lymph node biopsy tomorrow rather than undergoing a percutaneous biopsy. Patient is agreeable to the mastectomy, plan for surgery tomorrow. Wound care/dressing changes Right mastectomy with sentinel lymph node biopsy scheduled for today with Dr. Phipps Remain NPO prior to surgery, following surgery she will return to a fluid restrictive diet Ca 15-3 pending (2) Acute hyponatremia: Code(s): E87.1 - Hypo-osmolality and hyponatremia Status: Acute Assessment and Plan: Patient remains hyponatremic after receiving NS. Urine sodium 116 and BUN 7. Possible SIADH. Serum sodium continues to improve with fluid restriction. Currently sodium 130. Patient remains asymptomatic. Continue fluid restriction protocol following surgery Monitor serum sodium Serum osmolality pending Urine osmolality pending (3) Hypothyroidism (acquired): Code(s): E03.9 - Hypothyroidism, unspecified Status: Acute Assessment and Plan: TSH 09/02/23: 0.63. Patient well controlled on home medications. Continue home levothyroxine 75 mcg daily (4) Adrenal insufficiency: Code(s): E27.40 - Unspecified adrenocortical insufficiency Status: Acute Assessment and Plan: Patient on chronic steroid therapy. Continue home prednisone 5 mg daily Time Spent With Patient Time with patient: 25 - 35 minutes Subjective Date/time seen: 02/11/24 07:25 Interval history: 78 year old female with past medical history of adrenal insufficiency on chronic steroid therapy and hypothyroidism presented to the ED due to a right breast mass with associated bleeding. Patient is pleasant lying in bed with family at bedside. She reports mild tenderness to the right breast mass which worsens with palpation. She continues to deny chest pain, shortness of breath, nausea/vomiting, changes in bowel and bladder. Patient is scheduled to undergo a right mastectomy today at 11:30. SHe states she is anxious about the surgery. Discussed with patient and family that her sodium is going up with fluid restriction. Review of Systems Review of Systems: All systems reviewed & are unremarkable except as noted in HPI and below Exam Narrative: AF HR 75 RR 18 SpO2 98 BP 143/57 General: female in no acute respiratory distress who is nontoxic appearing, lying semi recumbent in bed. HEENT: Normocephalic. Atraumatic. Pupils equal round reactive to light. Extraocular movement intact. Sclera clear and anicteric. Chest: Lungs are clear to auscultation bilaterally. No wheezes or crackles. CV: Heart was regular rate and rhythm. S1-S2. No murmurs, gallops, or rubs. Abd: Abdomen was soft. Nontender. Nondistended. Positive bowel sounds. No organomegaly or masses. Ext: No clubbing, cyanosis, or edema. 2+ DP pulses bilaterally. Neuro: Patient is alert and oriented x4. Speech is clear. Psych: Normal mood and affect.
[2024-02-11 07:36] LABS: Anion Gap 3 mmol/L (8-16); Blood Urea Nitrogen 9 mg/dL (7-17); Carbon Dioxide 29 mmol/L (22-30); Chloride 98 mmol/L (98-107); Estimated CRCL calculation 56 ml/min; Estimated Glomerular Filt Rate > 60; Glucose 93 mg/dL (65-110); Potassium 3.4 mmol/L (3.4-5.0); Sodium 130 mmol/L (137-145)
--- NOTE | 2024-02-11 09:26 | ECG_ITS ---
Measurements Intervals [place] Rate: 69 P: 59 ID: [id number] QRS: -5 QRSD: 78 T: 34 QT: 375 QTc: 404 Interpretive Statements SINUS RHYTHM CANNOT RULE OUT SEPTAL INFARCT, AGE INDETERMINATE CONSIDER INFERIOR INFARCT, AGE INDETERMINATE ABNORMAL ECG COMPARED TO ECG 08/28/2019 15:19:35 NO SIGNIFICANT CHANGES Electronically Signed On 02-11-2024 11:49:57 CDT by Jonathan Damon D.O.
--- NOTE | 2024-02-11 11:54 | WPDHPUPDATE1 ---
History and Physical Update Update Date/Time: 02/11/24 11:54 History and Physical has been reviewed, including an updated exam of the patient. There are NO changes in the patient's condition. Risks, benefits, and alternatives have been discussed and questions answered. Patient agrees to proceed with procedure.
--- NOTE | 2024-02-11 12:25 | SUR.PREOP ---
1225 TO NUCLEAR MEDICINE PER BED FOR LYMPH NODE INJECTION
--- NOTE | 2024-02-11 13:01 | WPDANESEPPF ---
Anes - Initial Pre Proc Eval Procedure: Operation Date: 02/11/24 13:00 Proposed Procedures p Right Mastectomy with [facility] Lymph Node Biopsy - Jus Locke DO Date/Time: 02/11/24 13:01 Surgeon: Cyrus Henderson MD Pre Op Diagnosis: Breast Mass/Hyponatremia Patient Data Age: 78 Gender: F Height: 1.6 m Weight: 64 kg Last Vital Signs Temp 37.2 C 02/11/24 11:48 Pulse 75 02/11/24 11:48 Resp 18 02/11/24 11:48 BP 143/57 H 02/11/24 11:48 Pulse Ox 98 02/11/24 11:48 O2 Del Method Room Air 02/11/24 11:48 Allergies Allergy/AdvReac Type Severity Reaction Status Date / Time No Known Allergies Allergy Verified 02/08/24 18:26 Home Medications Medication Instructions Recorded Confirmed Type loratadine 10 mg tablet (Claritin) 10 mg PO DAILY PRN allergic 04/22/22 02/08/24 History symptoms cholecalciferol (vitamin D3) 25 25 mcg PO DAILY 09/15/22 02/08/24 History mcg (1,000 unit) capsule simvastatin 10 mg tablet See Rx Instructions .Route 12/04/22 02/08/24 Rx .COMPLEX #90 tabs acetaminophen 325 mg capsule 325 mg PO Q6H PRN Pain (Scale 07/06/23 02/08/24 History (Tylenol) Score 4-6) montelukast 10 mg tablet 10 mg PO DAILY #90 tabs 08/24/23 02/08/24 Rx prednisone 1 mg tablet 5 mg PO DAILY 90 days #450 tabs 09/20/23 02/08/24 Rx tramadol 50 mg tablet 50 mg PO TID PRN pain #90 tabs 10/04/23 02/08/24 Rx levothyroxine 75 mcg tablet See Rx Instructions .Route 12/20/23 02/08/24 Rx .COMPLEX #95 tabs albuterol sulfate 90 mcg/actuation 1 puff inhalation Q4H PRN 02/09/24 02/09/24 History aerosol inhaler Shortness Of Breath Or Wheezing Laboratory Tests 02/10/24 02/11/24 13:22 06:19 WBC 7.8 K/mm3 (4.5-10.0) RBC 2.77 L M/mm3 (4.2-5.4) Hgb 8.5 L g/dL (12.0-15.0) Hct 27.0 L % (37.0-47.0) MCV 97.5 fl (80-100) MCH 30.7 pg (26-34) MCHC 31.5 L g/dl (32-36) RDW 13.4 % (11.5-14.5) Plt Count 304 k/mm3 (150-375) MPV 10.3 fl (7.4-10.4) Sodium 127 L mmol/L 130 L mmol/L (137-145) (137-145) Potassium 3.4 mmol/L (3.4-5.0) Chloride 98 mmol/L (98-107) Carbon Dioxide 29 mmol/L (22-30) Anion Gap 3 L mmol/L (8-16) BUN 9 mg/dL (7-17) Creatinine 0.60 L mg/dL (0.7-1.0) Estim Creat Clear Calc 56 ml/min Estimated GFR > 60 (59 - ) Glucose 93 mg/dL (65-110) Calcium 9.0 mg/dL (8.4-10.2) Patient hx anesthesia problems: none Family hx anesthesia problems: none Results Review: All pre-operative results and documents have been reviewed as part of the pre-operative evaluation. [facility] Past Medical History Medical History Adrenal insufficiency Arthritis Asthma Benign hypertension BMI 31.0-31.9,adult Cervical disc disease Chronic GERD 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ne Hypertension Hypothyroidism (acquired) Mild intermittent asthma, uncomplicated Mixed hyperlipidemia Osteoarthritis, multiple sites Pericardial effusion Postmenopausal Sacroiliitis jun 2014 Secondary adrenal insufficiency Situational anxiety Thyroid disease Surgical History Surgical History H/O breast biopsy 2007 H/O Spinal surgery Cervical discectomy 2016 H/O: hysterectomy 2012 History of knee replacement 2019 Hx of right heart catheterization 2007 Family History Family History Father Family history of hypercholesterolemia Family history of cardiovascular disease Acute myocardial infarction Family history of Alzheimer's disease Family history of coronary artery disease Mother Family history of hypercholesterolemia Sibling Family history of hypercholesterolemia Malignant neoplasm of prostate Grandparent Family history of cardiac d
[2024-02-11] MEDS: ceFAZolin 2 GM/D5W 50 ML 2 GM/50 ML BAG IVPB (13:09)
[2024-02-11] MEDS: ISOSULFAN BLUE 1% INJ 5 ML VIAL SUB-Q (13:28)
[2024-02-11] MEDS: BUPIVACAINE/EPINEPHRINE 0.5% 50 ML VIAL 20 ML INFILTRATE (13:56)
[2024-02-11] MEDS: LACTATED RINGERS 1,000 ML 30 ML IV CONT ×2 (15:02)
--- NOTE | 2024-02-11 15:06 | W.PM.PROC2 ---
Procedure Note - Detailed Date of Procedure 02/11/24 Pre-op Diagnosis Right breast mass Post-op Diagnosis Same Procedure Performed Right simple mastectomy with sentinel lymph node biopsy Surgeon Jus Locke, DO Anesthesia General and Local (0.5% bupivacaine with epinephrine) Indications This is a 78-year-old woman who presented to the emergency department with a large ulcerated breast mass that was bleeding. She had known about the breast mass for several months but had been avoiding seeking any medical attention for it. It began bleeding severely and she therefore notified her who then brought her to the emergency department. CT of her chest showed evidence of a large subareolar breast mass. There were no other concerning findings for gross metastases on the imaging. Discussions were made with the patient about treatment options and decision was made to proceed with right mastectomy with sentinel lymph node biopsy. Findings The patient was found to have an 8 cm subareolar breast mass that was ulcerated at the skin just inferior to the nipple. There was purulence drainage involving the ulcerated area. The mass appeared to be eroding through the skin but there did not appear to be any deep chest wall involvement. There appeared to be clear planes between the breast tissue and pectoral fascia. A right simple mastectomy was performed and sentinel lymph node biopsy was performed within the right axilla. Isosulfan blue was infiltrated in the periareolar region to help identify the lymph nodes and she also received nuclear isotope injection preoperatively. After completing the mastectomy I then used the navigator probe to identify area of increased isotope uptake within the axilla. I identified a blue lymph node within this region as well and removed it. The uptake within the lymph node was reading 2600. After removing this lymph node the baseline uptake was only about 100. No other sentinel lymph nodes were identified. The right breast was removed and sent to the lab for pathology. It was marked with a short suture superior and long suture lateral. Description of Procedure Procedure as well as risks, benefits, and alternatives were discussed with the patient. Written consent was obtained and placed in chart prior to procedure. Patient was brought back to surgical suite. She was placed supine on operating table. Time-out was done to confirm patient and procedure. She was then intubated by the anesthesia department. 4 mL of isosulfan blue was infiltrated in the subareolar region. Her right chest and axillary region was prepped and draped in sterile fashion using chlorhexidine prep and Betadine prep over the ulcerated area. The lines for planning the mastectomy were carefully marked out with a sterile marking pen. A wide elliptical incision was made along the right breast using a 10 blade scalpel. The incision was directed towards the axillary tail. Electrocautery was then used for hemostasis and for dissection through the subcutaneous tissue. Skin flaps were carefully dissected cephalad and caudad using electrocautery to carefully excise all of the visible breast tissue. The skin flaps were developed all the way down to the level of the pectoral fascia near the inferior edge of the clavicle superiorly and to the inframammary fold inferiorly. I then dissected medially to identify the perforating vessels just lateral to the lateral edge of the sternum. The breast tissue was carefully dissected off of the pectoral muscle starting from medial and working laterally. The perforating vessels were ligated with electrocautery along the dissection. There was 1 enlarged vessel in the superior medial region which was too large to cauterize through therefore the vessel was clamped with curved clamps and ligated with 3-0 Vicryl ties. Remainder of the breast tissue was then taken off from medial to lateral all the way out to the axillary tail. The olamide
[2024-02-11] MEDS: fentaNYL CITRATE INJ (*CRX) 100 MCG/2 ML VIAL 25 MCG IV PUSH ×4 (15:09→15:22)
[2024-02-11 17:13] LABS: Folic Acid 7.8 ng/mL (2.76->20)
[2024-02-11 17:16] LABS: Iron 32 ug/dL (37-170); Percent Iron Saturation 13 % (20-50)
[2024-02-11] MEDS: MORPHINE SULFATE (*CRX) 2 MG/ML INJ IV PUSH (19:25)
[2024-02-11] MEDS: ceFAZolin 1 GM/NS 50 ML 1 GM/50 ML BAG IVPB (21:17)
[2024-02-11] MEDS: HYDROCORTISONE SODIUM SUCCINATE 100 MG/2 ML VIAL IV PUSH (21:17)
[2024-02-11] MEDS: MORPHINE SULFATE (*CRX) 4 MG/ML INJ IV PUSH (21:30)
[2024-02-12 02:41] VITALS: BP 135/66; PULSE 78; RESP 14; TEMP 36.4; O2SAT 99
[2024-02-12] MEDS: HYDROCORTISONE SODIUM SUCCINATE 100 MG/2 ML VIAL IV PUSH ×2 (06:05→14:11)
[2024-02-12] MEDS: ceFAZolin 1 GM/NS 50 ML 1 GM/50 ML BAG IVPB ×2 (06:05→12:48)
[2024-02-12] MEDS: LEVOTHYROXINE SODIUM 75 MCG TABLET BY MOUTH (06:05)
[2024-02-12 06:50] LABS: Hematocrit 25.7 % (37.0-47.0); Hemoglobin 8.2 g/dL (12.0-15.0); Mean Corpuscular HGB Conc 31.9 g/dl (32-36); Mean Corpuscular Hemoglobin 31.4 pg (26-34); Mean Corpuscular Volume 98.5 fl (80-100); Mean Platelet Volume 10.1 fl (7.4-10.4); Platelet Count Result 324 k/mm3 (150-375); Red Blood Count 2.61 M/mm3 (4.2-5.4); Red Cell Distribution Width 13.2 % (11.5-14.5); White Blood Count 10.7 K/mm3 (4.5-10.0)
--- NOTE | 2024-02-12 06:59 | PM.IMPN ---
Progress Note: A&P Assessment and Plan (1) Breast mass, right: Qualifiers: Breast mass location: subareolar Qualified Code(s): N63.41 - Unspecified lump in right breast, subareolar Code(s): N63.10 - Unspecified lump in the right breast, unspecified quadrant Status: Acute Assessment and Plan: Large right breast mass with central ulceration in the periareolar region and malodorous purulent drainage. Mass began to bleed significantly, prompting the patient to come to the hospital. Labs showed a H&H of 9.9/30.7. Prior H&H was 12.9/39.9 in October 2023. No signs of active bleeding. CT chest/abdomen pelvis revealed a 7.7 cm right breast mass with a 6 mm right axillary node (distinctly different in size compared to adjacent axillary nodes). Most recent mammogram was 2017 which was normal. Concern for metastatic breast cancer. Patient evaluated by oncology and general surgery who discussed a right mastectomy with sentinel lymph node biopsy rather than undergoing a percutaneous biopsy. WBC mildly elevated at 10.7. Patient received cefazolin. s/p right mastectomy with sentinel lymph node biopsy of the right axilla 02/11/[address] Phipps. 19 round [address] drain in place with minimal bloody drainage. Analgesics Right breast pathology pending. Ca 15-3 pending (2) Acute hyponatremia: Code(s): E87.1 - Hypo-osmolality and hyponatremia Status: Acute Assessment and Plan: Patient remains hyponatremic after receiving NS. Urine sodium 116 and BUN 7. Possible SIADH. Serum sodium continues to improve with fluid restriction. Currently sodium 130. Patient remains asymptomatic. Continue fluid restriction protocol following surgery Monitor serum sodium Serum osmolality 268 Urine osmolality (3) Hypothyroidism (acquired): Code(s): E03.9 - Hypothyroidism, unspecified Status: Acute Assessment and Plan: TSH 09/02/23: 0.63. Patient well controlled on home medications. Continue home levothyroxine 75 mcg daily (4) Adrenal insufficiency: Code(s): E27.40 - Unspecified adrenocortical insufficiency Status: Acute Assessment and Plan: Patient on chronic steroid therapy. Continue home prednisone 5 mg daily Time Spent With Patient Time with patient: 25 - 35 minutes Subjective Date/time seen: 02/12/24 06:59 Interval history: 78 year old female with past medical history of adrenal insufficiency on chronic steroid therapy and hypothyroidism presented to the ED due to a right breast mass with associated bleeding. Patient is pleasant lying in bed with family at bedside. She underwent her right mastectomy with sentinel biopsy of the axillary lymph node yesterday with Dr. Locke. She states she has mild neck stiffness and mild pain to the operative site with movement of the right arm. She denies chest pain, shortness of breath, nausea/vomiting, changes in bowel/bladder. Spoke with RN and patient seems to be sundowning which lead her to be moved from Rm [id number] to 304 which is closer to the nurses station. Review of Systems Review of Systems: All systems reviewed & are unremarkable except as noted in HPI and below Exam Narrative: AF HR 72 RR 12 SpO2 100 BP 125/56 General: female in no acute respiratory distress who is nontoxic appearing, lying semi recumbent in bed. HEENT: Normocephalic. Atraumatic. Pupils equal round reactive to light. Extraocular movement intact. Sclera clear and anicteric. Chest: Lungs are clear to auscultation bilaterally. No wheezes or crackles. CV: Heart was regular rate and rhythm. S1-S2. No murmurs, gallops, or rubs. Abd: Abdomen was soft. Nontender. Nondistended. Positive bowel sounds. No organomegaly or masses. Ext: No clubbing, cyanosis, or edema. 2+ DP pulses bilaterally. Neuro: Patient is alert and oriented x4. Speech is clear. Psych: Normal mood and affect. Patient is pleasant and cooperative. Skin: Right mastectomy with abdominal pad
[2024-02-12 07:01] LABS: Anion Gap 2 mmol/L (8-16); Blood Urea Nitrogen 10 mg/dL (7-17); Calcium 9.2 mg/dL (8.4-10.2); Carbon Dioxide 30 mmol/L (22-30); Chloride 98 mmol/L (98-107); Estimated CRCL calculation 49 ml/min; Estimated Glomerular Filt Rate > 60; Glucose 146 mg/dL (65-110); Potassium 3.6 mmol/L (3.4-5.0); Sodium 130 mmol/L (137-145)
[2024-02-12 08:00] VITALS: BP 130/66; PULSE 69; RESP 12; TEMP 37.1; O2SAT 100
[2024-02-12] MEDS: MONTELUKAST SODIUM 10 MG TABLET PO (08:35)
[2024-02-12] MEDS: DOCUSATE SODIUM 100 MG CAPSULE PO ×2 (08:36→16:36)
[2024-02-12] MEDS: SIMVASTATIN 10 MG TABLET BY MOUTH (08:36)
[2024-02-12] MEDS: CHOLECALCIFEROL 1,000 UNITS TABLET 1000 UNITS PO (08:36)
[2024-02-12] MEDS: ENOXAPARIN 40 MG/0.4 ML SYRINGE SUB-Q (08:36)
[2024-02-12 12:00] VITALS: BP 125/56; PULSE 72; RESP 12; TEMP 37.1; O2SAT 100
--- NOTE | 2024-02-12 13:35 | WPDANESPN ---
Anes - Prog Note Post-Op Date/Time: 02/12/24 13:35 Cardiovascular status: normal Respiratory status: normal Airway patency: baseline Mental status: baseline Post-Op hydration status: normal Vital Signs: Last Vital Signs Temp 37.1 C 02/12/24 12:00 Pulse 72 02/12/24 12:00 Resp 12 02/12/24 12:00 BP 125/56 L 02/12/24 12:00 Pulse Ox 100 02/12/24 12:00 O2 Del Method Room Air 02/12/24 08:35 O2 Flow Rate 6 02/11/24 15:02 Pain Score (VAS): 01/29 I/O: Intake & Output 02/11/24 02/12/24 02/12/24 23:59 07:59 15:59 Intake Total 390 200 480 Output Total 185 40 10 Balance 205 160 470 Laboratory Tests 02/12/24 06:38 02/09/24 02/09/24 02/12/24 14:08 20:16 06:38 WBC 10.7 H RBC 2.61 L Hgb 8.2 L Hct 25.7 L MCV 98.5 MCH 31.4 MCHC 31.9 L RDW 13.2 Plt Count 324 MPV 10.1 Sodium 130 L Potassium 3.6 Chloride 98 Carbon Dioxide 30 Anion Gap 2 L BUN 10 Creatinine 0.70 Estim Creat Clear Calc 49 Estimated GFR > 60 Glucose 146 H Serum Osmolality 268 L Calcium 9.2 Iron 32 L TIBC 243 L % Saturation 13 L Ferritin 65.60 Vitamin B12 993.0 H Folate 7.8 02/12/24 13:30 WBC RBC Hgb Hct MCV MCH MCHC RDW Plt Count MPV Sodium Pending Potassium Chloride Carbon Dioxide Anion Gap BUN Creatinine Estim Creat Clear Calc Estimated GFR Glucose Serum Osmolality Calcium Iron TIBC % Saturation Ferritin Vitamin B12 Folate Post-procedural complaints: none Patient Feedback: Patient satisfied with anesthetic care.
[2024-02-12 13:43] LABS: Sodium 132 mmol/L (137-145)
--- NOTE | 2024-02-12 15:04 | PM.PNGS ---
Progress Note: A&P Assessment and Plan (1) Mass of right breast: Qualifiers: Breast mass location: subareolar Qualified Code(s): N63.41 - Unspecified lump in right breast, subareolar Code(s): N63.10 - Unspecified lump in the right breast, unspecified quadrant Status: Acute Assessment and Plan: Doing well on POD#1. OK for discharge when medically stable. Pathology pending. Follow up in office in 1 week for drain assessment and possible removal. (2) Hyponatremia: Code(s): E87.1 - Hypo-osmolality and hyponatremia Status: Acute (3) Adrenal insufficiency: Code(s): E27.40 - Unspecified adrenocortical insufficiency Status: Acute Subjective Subjective Date/Time Seen: 02/12/24 15:04 Interval history: Doing well on POD#1. Confused after surgery yesterday, but more oriented today. No significant pain. Exam Chest: Other: Incision dry, intact with glue. Minimal JADE serosanguinous output. Objective Data Vital Signs Vital Signs: Vital Signs - 24 hr 02/11/24 15:10 02/11/24 15:45 02/11/24 15:15 Temperature Pulse Rate 96 87 Respiratory Rate 16 16 Blood Pressure 151/77 H 144/56 H Pulse Oximetry 99 98 Oxygen Delivery Room Air Room Air Room Air 02/11/24 15:30 02/11/24 16:00 02/11/24 16:11 Temperature 36.6 C Pulse Rate 91 95 85 Respiratory Rate 16 16 20 Blood Pressure 130/66 133/69 Pulse Oximetry 100 99 96 Oxygen Delivery Room Air Room Air 02/11/24 20:41 02/12/24 02:41 02/12/24 08:00 Temperature 36.2 C L 36.4 C 37.1 C Pulse Rate 79 78 69 Respiratory Rate 16 14 12 Blood Pressure 140/70 135/66 130/66 Pulse Oximetry 99 99 100 Oxygen Delivery 02/12/24 08:35 02/12/24 12:00 Temperature 37.1 C Pulse Rate 72 Respiratory Rate 12 Blood Pressure 125/56 L Pulse Oximetry 100 Oxygen Delivery Room Air Intake/Output Intake/Output: Intake & Output 02/09/24 02/10/24 02/11/24 02/12/24 23:59 23:59 23:59 23:59 Intake Total 2485 236 390 560 Output Total 1800 502 385 50 Balance 685 -117 5 510 Meds/Results Medications: Active Medications Generic Name Dose Route Start Last Admin Trade Name Freq PRN Reason Stop Dose Admin Acetaminophen 500 mg 02/11/24 15:56 Acetaminophen 500 Mg Tablet PO Q6H PRN Mild Pain (1-3) or Fever Hydrocodone Bitart/Acetaminophen 2 tab 02/11/24 15:56 Hydrocodone/Acetaminophen (*Crx) 5-325 Mg Tablet PO Q4H PRN Pain Rated 7-10 Hydrocodone Bitart/Acetaminophen 1 tab 02/11/24 15:56 Hydrocodone/Acetaminophen (*Crx) 5-325 Mg Tablet PO Q4H PRN Pain Rated 4-6 Albuterol 1 puff 02/10/24 13:19 Albuterol Sulfate (*Sp) Aerosol 1 Puff INHALATION Q4H PRN Shortness Of Breath Or Wheezing Docusate Sodium 100 mg 02/11/24 17:00 02/12/24 08:36 Docusate Sodium 100 Mg Capsule PO 100 mg BID CINDA Administration Enoxaparin Sodium 40 mg 02/12/24 09:00 02/12/24 08:36 Enoxaparin 40 Mg/0.4 Ml Syringe SUB-Q 40 mg DAILY CINDA Administration Cefazolin Sodium 1 gm in 50 mls @ 100 mls/hr 02/11/24 21:00 02/12/24 12:48 Ancef 1 Gm/Ns 50 Ml IVPB 02/12/24 20:59 100 mls/hr Q8H CINDA Administration Levothyroxine Sodium 75 mcg 02/09/24 06:30 02/12/24 06:05 Levothyroxine Sodium 75 Mcg Tablet BY MOUTH 75 mcg [id number] CINDA Administration Levothyroxine Sodium 25 mcg 02/13/24 06:30 Levothyroxine Sodium 25 Mcg Tablet PO Cortez@0630 CINDA Levothyroxine Sodium 12.5 mcg 02/13/24 06:30 Levothyroxine Sodium 12.5 Mcg Tablet PO Cortez@0630 CINDA Loratadine 10 mg 02/09/24 05:05 Loratadine 10 Mg Tablet PO DAILY PRN allergic symptoms Miscellaneous Information 1 each 02/11/24 16:05 Order Clarification XX 03/12/24 16:04 CLARIFY CINDA Montelukast Sodium 10 mg 02/09/24 09:00 02/12/24 08:35 Montelukast Sodium 10 Mg Tablet PO 10 mg DAILY CINDA Administration Morphine Sulfate 4 mg 02/11/24 1
[2024-02-12 16:00] VITALS: BP 126/63; PULSE 69; RESP 12; TEMP 36.3; O2SAT 100
[2024-02-12 20:00] VITALS: PULSE 76; RESP 16; O2SAT 100
[2024-02-12 20:14] VITALS: BP 149/69; PULSE 76; RESP 16; TEMP 36.4; O2SAT 100
[2024-02-12 20:39] LABS: Osmolality, Urine 320 mOsm/kg (50-1200)
[2024-02-13 04:28] VITALS: BP 130/66; PULSE 67; RESP 16; TEMP 36.4; O2SAT 99
[2024-02-13] MEDS: LEVOTHYROXINE SODIUM 25 MCG TABLET PO (05:24)
[2024-02-13] MEDS: LEVOTHYROXINE SODIUM 12.5 MCG TABLET PO (05:24)
--- NOTE | 2024-02-13 07:16 | PM.IMPN ---
Progress Note: A&P Assessment and Plan (1) Breast mass, right: Qualifiers: Breast mass location: subareolar Qualified Code(s): N63.41 - Unspecified lump in right breast, subareolar Code(s): N63.10 - Unspecified lump in the right breast, unspecified quadrant Status: Acute Assessment and Plan: Large right breast mass with central ulceration in the periareolar region and malodorous purulent drainage. Mass began to bleed significantly, prompting the patient to come to the hospital. Labs showed a H&H of 9.9/30.7. Prior H&H was 12.9/39.9 in October 2023. No signs of active bleeding. CT chest/abdomen pelvis revealed a 7.7 cm right breast mass with a 6 mm right axillary node (distinctly different in size compared to adjacent axillary nodes). Most recent mammogram was 2017 which was normal. Concern for metastatic breast cancer. Patient evaluated by oncology and general surgery who discussed a right mastectomy with sentinel lymph node biopsy rather than undergoing a percutaneous biopsy. WBC mildly elevated at 10.7. Patient received cefazolin. s/p right mastectomy with sentinel lymph node biopsy of the right axilla 02/11/[address] Phipps. [address] drain in place with minimal bloody drainage. Analgesics Right breast pathology pending. Ca 15-3 pending (2) Acute hyponatremia: Code(s): E87.1 - Hypo-osmolality and hyponatremia Status: Acute Assessment and Plan: Patient remains hyponatremic after receiving NS. Urine sodium 116 and BUN 7. Possible SIADH. Serum sodium continues to improve with fluid restriction. Currently sodium 130. Patient remains asymptomatic. Continue fluid restriction protocol following surgery Monitor serum sodium Serum osmolality 268 Urine osmolality (3) Hypothyroidism (acquired): Code(s): E03.9 - Hypothyroidism, unspecified Status: Acute Assessment and Plan: TSH 09/02/23: 0.63. Patient well controlled on home medications. Continue home levothyroxine 75 mcg daily (4) Adrenal insufficiency: Code(s): E27.40 - Unspecified adrenocortical insufficiency Status: Acute Assessment and Plan: Patient on chronic steroid therapy. Continue home prednisone 5 mg daily Subjective Date/time seen: 02/13/24 07:16 Interval history: 78 year old female with past medical history of adrenal insufficiency on chronic steroid therapy and hypothyroidism presented to the ED due to a right breast mass with associated bleeding. Review of Systems Review of Systems: All systems reviewed & are unremarkable except as noted in HPI and below Exam Narrative: AF General: female in no acute respiratory distress who is nontoxic appearing, lying semi recumbent in bed. HEENT: Normocephalic. Atraumatic. Pupils equal round reactive to light. Extraocular movement intact. Sclera clear and anicteric. Chest: Lungs are clear to auscultation bilaterally. No wheezes or crackles. CV: Heart was regular rate and rhythm. S1-S2. No murmurs, gallops, or rubs. Abd: Abdomen was soft. Nontender. Nondistended. Positive bowel sounds. No organomegaly or masses. Ext: No clubbing, cyanosis, or edema. 2+ DP pulses bilaterally. Neuro: Patient is alert and oriented x4. Speech is clear. Psych: Normal mood and affect. Patient is pleasant and cooperative. Skin: Right mastectomy with abdominal pad and surgical bra in place. 19 round donna drain in place with minimal bloody drainage. Objective Data Vital Signs Vital Signs: Vital Signs - 24 hr 02/12/24 08:00 02/12/24 08:35 02/12/24 12:00 Temperature 98.8 F 98.7 F Pulse Rate 69 72 Respiratory Rate 12 12 Blood Pressure 130/66 125/56 L Pulse Oximetry 100 100 Oxygen Delivery Room Air 02/12/24 16:00 02/12/24 20:14 02/12/24 20:00 Temperature 97.4 F L 97.5 F L Pulse Rate 69 76 76 Respiratory Rate 12 16 16 Blood Pressure 126/63 149/69 H Pulse Oximetry 100 100 100
[2024-02-13 07:19] LABS: Hematocrit 25.2 % (37.0-47.0); Hemoglobin 8.2 g/dL (12.0-15.0); Mean Corpuscular HGB Conc 32.5 g/dl (32-36); Mean Corpuscular Hemoglobin 33.2 pg (26-34); Mean Platelet Volume 10.6 fl (7.4-10.4); Platelet Count Result 346 k/mm3 (150-375); Red Blood Count 2.47 M/mm3 (4.2-5.4); Red Cell Distribution Width 13.6 % (11.5-14.5); White Blood Count 7.3 K/mm3 (4.5-10.0)
[2024-02-13 07:31] LABS: Anion Gap 1 mmol/L (8-16); Blood Urea Nitrogen 15 mg/dL (7-17); Calcium 9.3 mg/dL (8.4-10.2); Carbon Dioxide 32 mmol/L (22-30); Chloride 100 mmol/L (98-107); Estimated CRCL calculation 49 ml/min; Estimated Glomerular Filt Rate > 60; Glucose 89 mg/dL (65-110); Potassium 3.1 mmol/L (3.4-5.0); Sodium 133 mmol/L (137-145)
[2024-02-13 07:59] LABS: CA 15-3 7 U/mL (<32)
[2024-02-13] MEDS: SIMVASTATIN 10 MG TABLET BY MOUTH (09:01)
[2024-02-13] MEDS: MONTELUKAST SODIUM 10 MG TABLET PO (09:01)
[2024-02-13] MEDS: CHOLECALCIFEROL 1,000 UNITS TABLET 1000 UNITS PO (09:01)
[2024-02-13] MEDS: predniSONE 5 MG TABLET PO (09:01)
[2024-02-13] MEDS: POTASSIUM CHLORIDE 20 MEQ ER TABLET 40 MEQ PO (09:01)
[2024-02-13] MEDS: ENOXAPARIN 40 MG/0.4 ML SYRINGE SUB-Q (09:02)
[2024-02-13] MEDS: DOCUSATE SODIUM 100 MG CAPSULE PO (09:02)
--- NOTE | 2024-02-13 13:06 | PM.PNGS ---
Progress Note: A&P Assessment and Plan (1) Mass of right breast: Qualifiers: Breast mass location: subareolar Qualified Code(s): N63.41 - Unspecified lump in right breast, subareolar Code(s): N63.10 - Unspecified lump in the right breast, unspecified quadrant Status: Acute Assessment and Plan: Doing well on POD#2. OK for discharge when medically stable. Pathology pending. Follow up in office in 1 week for drain assessment and possible removal. (2) Hyponatremia: Code(s): E87.1 - Hypo-osmolality and hyponatremia Status: Acute (3) Adrenal insufficiency: Code(s): E27.40 - Unspecified adrenocortical insufficiency Status: Acute Subjective Subjective Date/Time Seen: 02/13/24 13:06 Interval history: Continues to heal well. No significant complaints. Exam Chest: Other: Incision dry, intact with glue. Minimal JADE serosanguinous output. Objective Data Vital Signs Vital Signs: Vital Signs - 24 hr 02/12/24 16:00 02/12/24 20:14 02/12/24 20:00 Temperature 36.3 C L 36.4 C L Pulse Rate 69 76 76 Respiratory Rate 12 16 16 Blood Pressure 126/63 149/69 H Pulse Oximetry 100 100 100 Oxygen Delivery Room Air 02/13/24 04:28 02/13/24 09:00 Temperature 36.4 C L Pulse Rate 67 Respiratory Rate 16 Blood Pressure 130/66 Pulse Oximetry 99 Oxygen Delivery Room Air Intake/Output Intake/Output: Intake & Output 02/10/24 02/11/24 02/12/24 02/13/24 23:59 23:59 23:59 23:59 Intake Total 077 030 9381 240 Output Total 502 385 80 20 Balance -266 5 920 220 Meds/Results Medications: Active Medications Generic Name Dose Route Start Last Admin Trade Name Freq PRN Reason Stop Dose Admin Acetaminophen 500 mg 02/11/24 15:56 Acetaminophen 500 Mg Tablet PO Q6H PRN Mild Pain (1-3) or Fever Hydrocodone Bitart/Acetaminophen 2 tab 02/11/24 15:56 Hydrocodone/Acetaminophen (*Crx) 5-325 Mg Tablet PO Q4H PRN Pain Rated 7-10 Hydrocodone Bitart/Acetaminophen 1 tab 02/11/24 15:56 Hydrocodone/Acetaminophen (*Crx) 5-325 Mg Tablet PO Q4H PRN Pain Rated 4-6 Albuterol 1 puff 02/10/24 13:19 Albuterol Sulfate (*Sp) Aerosol 1 Puff INHALATION Q4H PRN Shortness Of Breath Or Wheezing Docusate Sodium 100 mg 02/11/24 17:00 02/13/24 09:02 Docusate Sodium 100 Mg Capsule PO 100 mg BID CINDA Administration Enoxaparin Sodium 40 mg 02/12/24 09:00 02/13/24 09:02 Enoxaparin 40 Mg/0.4 Ml Syringe SUB-Q 40 mg DAILY CINDA Administration Levothyroxine Sodium 75 mcg 02/09/24 06:30 02/12/24 06:05 Levothyroxine Sodium 75 Mcg Tablet BY MOUTH 75 mcg [email or web address] CINDA Administration Levothyroxine Sodium 25 mcg 02/13/24 06:30 02/13/24 05:24 Levothyroxine Sodium 25 Mcg Tablet PO 25 mcg Cortez@0630 CINDA Administration Levothyroxine Sodium 12.5 mcg 02/13/24 06:30 02/13/24 05:24 Levothyroxine Sodium 12.5 Mcg Tablet PO 12.5 mcg Cortez@0630 CINDA Administration Loratadine 10 mg 02/09/24 05:05 Loratadine 10 Mg Tablet PO DAILY PRN allergic symptoms Montelukast Sodium 10 mg 02/09/24 09:00 02/13/24 09:01 Montelukast Sodium 10 Mg Tablet PO 10 mg DAILY CINDA Administration Morphine Sulfate 4 mg 02/11/24 15:56 02/11/24 21:30 Morphine Sulfate (*Crx) 4 Mg/Ml Inj IV PUSH 4 mg Q2H PRN Administration Pain Rated 7-10 Morphine Sulfate 2 mg 02/11/24 15:56 02/11/24 19:25 Morphine Sulfate (*Crx) 2 Mg/Ml Inj IV PUSH 2 mg Q2H PRN Administration Pain Rated 4-6 Naloxone HCl 0.1 mg 02/11/24 15:56 Naloxone Hcl 0.4 Mg/Ml Vial IV PUSH Q2M PRN Opiate Reversal Ondansetron HCl 4 mg 02/11/24 15:56 Ondansetron Inj 4 Mg/2 Ml Vial IV PUSH Q4H PRN Nausea And Vomiting Prednisone 5 mg 02/09/24 08:00 02/13/24 09:01 Prednisone 5 Mg Tablet PO 5 mg DAILY@0800 CINDA Administration Simvastatin 10 mg 02/09/24 09:00 0
--- NOTE | 2024-02-13 15:20 | PM.DS ---
DS: Admitting Diagnosis Discharge Date 02/13/24 Admitting Diagnosis Right breast mass Acute hyponatremia Hypothyroidism adrenal insufficiency DS: Discharge Diagnosis Discharge Diagnosis (1) Breast mass, right: Qualifiers: Breast mass location: subareolar Qualified Code(s): N63.41 - Unspecified lump in right breast, subareolar Code(s): N63.10 - Unspecified lump in the right breast, unspecified quadrant Status: Acute (2) Acute hyponatremia: Code(s): E87.1 - Hypo-osmolality and hyponatremia Status: Acute (3) Hypothyroidism (acquired): Code(s): E03.9 - Hypothyroidism, unspecified Status: Acute (4) Adrenal insufficiency: Code(s): E27.40 - Unspecified adrenocortical insufficiency Status: Acute DS: Summary Hospital Course Reason for hospitalization: Right breast mass Acute hyponatremia Hypothyroidism adrenal insufficiency Hospital Course: 78 year old female with past medical history of adrenal insufficiency on chronic steroid therapy and hypothyroidism presented to the ED due to a right breast mass with associated bleeding. Over the past several months patient has had a growing right breast mass. The mass began to bleed significantly, prompting the patient to come to the hospital. Labs on arrival showed a H&H of 9.9/30.7. Prior H&H was 12.9/39.9 in October 2023. No signs of active bleeding. CT chest/abdomen pelvis revealed a 7.7 cm right breast mass with a 6 mm right axillary node (distinctly different in size compared to adjacent axillary nodes). Most recent mammogram was 2017 which was normal. Concern for metastatic breast cancer. Patient was seen by oncology and general surgery who discussed a right mastectomy with sentinel lymph node biopsy which was performed 02/12/[address] Locke. Patient is doing well and is now post op day 2 with a clean dry and intact incision with a drain in place. She denies any post operative pain. She will follow up with Dr. Locke in 1 week for drain assessment and possible removal. She will follow up with oncology in 2 weeks. Patient found to be hyponatremic on arrival to the hospital. She remained asymptomatic. Likely SIADH. She was placed on a fluid restriction while admitted. She was started on Sodium Chloride 500 mg PO daily upon discharge. She will follow up with her primary care provider to reevaluate her sodium level in 1 week. Patient was discharged home with family in a stable condition. She will follow up with her primary care provider and Dr. Locke (surgery) in 1 week and oncology in 2 weeks. She states understanding. Status at Discharge Functional status at discharge: independent ambulation Time Spent with Patient Time attestation: Total time spent providing and/or coordinating discharge services: Time spent: Greater than 30 minutes Exam Narrative: AF? HR 67 RR 16 SpO2 99 BP 130/66 General: female in no acute respiratory distress who is nontoxic appearing, lying semi recumbent in bed. HEENT: Normocephalic. Atraumatic. Pupils equal round reactive to light. Extraocular movement intact. Sclera clear and anicteric. Chest: Lungs are clear to auscultation bilaterally. No wheezes or crackles. CV: Heart was regular rate and rhythm. S1-S2. No murmurs, gallops, or rubs. Abd: Abdomen was soft. Nontender. Nondistended. Positive bowel sounds. No organomegaly or masses. Ext: No clubbing, cyanosis, or edema. 2+ DP pulses bilaterally. Neuro: Patient is alert and oriented x4. Speech is clear. Psych: Normal mood and affect. Patient is pleasant and cooperative. Skin: Right mastectomy with clean dry and intact incision and a 19 round [address] drain in place with minimal serosanguineous drainage. DS: Data Data Completed and Pending Completed studies during hospitalization: Chest/abdomen/pelvis CT [place] node Pending studies at discharge: Pending at discharge 02/11/24 14:12 Surgical [PTH] Routine Labs on day of discharge: [place]
== END 2024-02-13 14:05 | disposition home or self-care (01) | DRG 580 ==
LOC: ANHED 20:36 → ANH3MEDSUR 22:44
PROVIDERS: Internal Medicine Hematology & Oncology; Physician Assistant; Student in an Organized Health Care Education/Training Program; Surgery; Admitting Provider Internal Medicine; Emergency Provider Emergency Medicine; PCP Family Medicine; Visit Provider Internal Medicine
PROC: 0HTT0ZZ Resection of Right Breast, Open Approach (ICD-10-PCS; principal; 2024-02-11 13:00)
DX: C50.311 Malignant neoplasm of lower-inner quadrant of right female breast (principal); E22.2 Syndrome of inappropriate secretion of antidiuretic hormone; E27.40 Unspecified adrenocortical insufficiency; D50.0 Iron deficiency anemia secondary to blood loss (chronic); E03.9 Hypothyroidism, unspecified; E78.2 Mixed hyperlipidemia; I10 Essential (primary) hypertension; K21.9 Gastro-esophageal reflux disease without esophagitis; M15.9 Polyosteoarthritis, unspecified; Z90.710 Acquired absence of both cervix and uterus; Z79.52 Long term (current) use of systemic steroids
CPT/HCPCS: 36415; 38792; 71260; 74177; 80048; 80053; 82607; 82728; 82746; 83540; 83550; 83605; 83930; 83935; 84295; 84300; 85025; 85027; 85610; 85730; 86300; 86850; 86900; 86901; 87086; 87088; 88305; 88307; 88342; 93005; 96360; 99285; A9270; A9520; G0378; J0690; J1100; J1650; J1720; J2270; J2405; J2704; J3010; J7030; J7120; J7512; Q9967

== ENCOUNTER 2024-03-29 02:01 | Day surgery (SDC) | payer MEDICARE, SELFPAY ==
[2024-03-28 11:26] VITALS: BMI 23.3
--- NOTE | 2024-03-28 11:34 | PC.NURSE ---
Report to the Outpatient Waiting Room, entrance under the green pavilion located off [facility], at time __1130 on date __03/29/24 . Planned Procedure Time: __1:30 PM . Time changes happen often and if your time is changed the preop area will call you the afternoon before. - You and your visitor will be asked to self-screen and do not enter if you have any COVID symptoms. - A mask is optional within the hospital at this time. Patients may have clear liquids (water, carbonated beverages, clear teas, apple juice) until 3 hours prior to surgery (1030 AM) with a maximum of 20 ounces. - No food from midnight until time of surgery - Infants may have breast milk until 4 hours before surgery, infant formula 6 hours prior to surgery. - Children will be allowed to drink immediately following surgery. If applicable, please bring a bottle or sippy cup to assist with drinking. Juice, water, soda, and popsicles are readily available. For infants on formula, please bring formula the day of surgery. Pacifiers are allowed. Take the following medications with a SIP of water the morning of surgery: _LEVOTHYROXINE, MONTELUKAST, PREDNISONE & TYLENOL, INHALER IF NEEDED_ DO NOT STOP ANY OF YOUR OTHER PRESCRIPTION MEDICATIONS PRIOR TO SURGERY ?EXCEPT THE FOLLOWING Medications to discontinue per physician N/A Date to take last dose Please no make-up, nail guyanese, hairspray, perfume, deodorant, or body powder the day of surgery. No jewelry (including any body piercings) or valuables the day of surgery, leave them at home. Please take a shower or bath the night before, or the morning of, surgery with an antibacterial soap. Wear comfortable, loose fitting clothing. Children are encouraged to wear pajamas. - Jewelry must be removed prior to entering the operating room. Rings and piercings that are not removed may be cut off. - The hospital will not accept responsibility for valuables. - Please leave all valuables, including medications, at home the day of surgery. If you are going home after surgery, a licensed pile driver operator must drive you home. - NO public transportation without another adult if you receive anesthesia. - We recommend that an adult stay with you for 24 hours following discharge. - We also recommend that you do not drive, make important decision, drink alcoholic beverages, or take any drugs that were not prescribed by your health care provider for at least 24 hours after your discharge time. For Pediatric surgeries, we recommend two adults accompany the child home. Follow any additional instructions given to you from your surgeon. If you or anyone in your household have experienced Covid symptoms in the past week, please notify your surgeon or the nurse liaison at the phone number below for possible testing. Telephone instructions given to PT and asked if any additional questions and then verbalized understanding. Patient advised to call surgeon office or pre surgery nurse liaison [phone] if any additional questions.
--- NOTE | ~2024-03-29 | XR_ITS ---
EXAMINATION: XR chest port-a-cath/central DATE: 03/29/2024 19:13 INDICATION: Port catheter insertion TECHNIQUE: frontal view of the chest was obtained. COMPARISON: Chest radiograph dated 08/28/2019 FINDINGS: Left subclavian central venous port catheter with distal tip at the superior cavoatrial junction. No focal airspace opacities, pulmonary edema, pleural effusion or pneumothorax. Heart size is normal wit h prominent left paracardial fat pad extending to the apex of the heart and the costophrenic angle. S tatus post right mastectomy. C4-C7 anterior spinal fusion with anterior plate and screw fixation. IMPRESSION: 1. Left subclavian central venous port catheter tip at the superior cavoatrial junction. Reviewed, dictated and finalized at location A.
--- NOTE | ~2024-03-29 | XR_ITS ---
EXAMINATION: XR fl guide central line place DATE: 03/29/2024 19:15 INDICATION: Port catheter insertion TECHNIQUE: 2 fluoroscopic images of the chest were obtained during procedure performed by Dr. Hernandez. R adiologist was not present for the imaging or procedure. The amount of fluoroscopy time used during t his procedure was 1.0 minutes. COMPARISON: Chest CT dated 02/08/2024 FINDINGS/IMPRESSION: Interval placement of a left subclavian central venous port catheter with distal tip near the superio r cavoatrial junction. See procedure note for further detail. Reviewed, dictated and finalized at location A.
[2024-03-29 12:06] VITALS: BP 156/62; PULSE 67; RESP 14; TEMP 36.6; O2SAT 100
[2024-03-29] MEDS: KETOROLAC 15 MG/ML VIAL (*BKC) IV PUSH (12:36)
[2024-03-29] MEDS: LACTATED RINGERS 1,000 ML 30 ML IV CONT (12:42)
--- NOTE | 2024-03-29 13:25 | WPDANESEPPF ---
Anes - Initial Pre Proc Eval Procedure: Operation Date: 03/29/24 13:30 Proposed Procedures p Insertion Steven Cath - Renan Hernandez MD Date/Time: 03/29/24 13:25 Surgeon: Renan Hernandez MD Pre Op Diagnosis: breast CA Patient Data Age: 78 Gender: F Height: 1.61 m Weight: 60.9 kg Last Vital Signs Temp 97.9 F 03/29/24 12:06 Pulse 67 03/29/24 12:06 Resp 14 03/29/24 12:06 BP 156/62 H 03/29/24 12:06 Pulse Ox 100 03/29/24 12:06 Allergies Allergy/AdvReac Type Severity Reaction Status Date / Time No Known Allergies Allergy Verified 03/29/24 12:06 Home Medications Medication Instructions Recorded Confirmed Type acetaminophen 325 mg capsule 325 mg PO Q6H PRN Pain (Scale 07/06/23 03/28/24 History (Tylenol) Score 4-6) montelukast 10 mg tablet 10 mg PO DAILY #90 tabs 08/24/23 03/28/24 Rx levothyroxine 75 mcg tablet See Rx Instructions .Route 12/20/23 03/28/24 Rx .COMPLEX #95 tabs prednisone 1 mg tablet 5 mg PO DAILY 90 days #450 tabs 03/10/24 03/28/24 Rx albuterol sulfate 90 mcg/actuation 1 puff inhalation Q4H PRN 03/16/24 03/28/24 Rx aerosol inhaler Shortness Of Breath Or Wheezing #8.5 grams Patient hx anesthesia problems: none Family hx anesthesia problems: none Results Review: All pre-operative results and documents have been reviewed as part of the pre-operative evaluation. [facility] Past Medical History Medical History Adrenal insufficiency Arthritis Asthma Benign hypertension BMI 31.0-31.9,adult Cervical disc disease Chronic GERD 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ne Hypertension Hypothyroidism (acquired) Mild intermittent asthma, uncomplicated Mixed hyperlipidemia Osteoarthritis, multiple sites Pericardial effusion Postmenopausal Sacroiliitis jun 2014 Secondary adrenal insufficiency Situational anxiety Thyroid disease Surgical History Surgical History (Updated 03/16/24 @ 14:26 by Kaylah Sherwood MA) H/O breast biopsy 2007 H/O Spinal surgery Cervical discectomy 2016 H/O: hysterectomy 2012 History of knee replacement 2019 Hx of right heart catheterization 2007 Hx of right mastectomy 02/11/24 Family History Family History Father Family history of hypercholesterolemia Family history of cardiovascular disease Acute myocardial infarction Family history of Alzheimer's disease Family history of coronary artery disease Mother Family history of hypercholesterolemia Sibling Family history of hypercholesterolemia Malignant neoplasm of prostate Grandparent Family history of cardiac disorder Malignant neoplasm of prostate Other Family history of congestive heart failure Family history of elevated blood lipids Family history of malignant neoplasm of breast in first degree relative Hypertension Social History Social History Smoking status: Never smoker Second hand tobacco smoke exposure: No Alcohol intake: never Substance use: never Substance use type: does not use Do You Feel Safe in your Home?: Yes Lack of Transportation: No Lack of Food: Never True Current Housing: I Have Housing Concerned About Future Housing: No Difficulty Paying Gas/Electric Bills: No Difficulty Paying for Meds: No Currently Unemployed: No Education: High School Diploma/GED Difficulty w/ Childcare or Family Care: No Living arrangements: with family Occupation/Education: retired Gender identity (if verbalized by the patient): Female Sexual Orientation (if Verbalized by the Patient): Straight or Heterosexual Spiritual care concerns: No Agree to blood products: Yes Anes - Eval Final PreProcedure Day of Procedure 03/29/24 13:25 Patient weight: normal Heart: regular rate and rhythm Lungs: clear to auscultation Airway:
--- NOTE | 2024-03-29 13:51 | PM.SD2 ---
Same Day Admit/Disch: HPI History of Present Illness Chief complaint: breast CA Narrative: Mary Hoang is a 78 year old female who presented with a very large right breast cancer that had ulcerated through the skin. She underwent simple mastectomy with sentinel lymph node biopsy about 6 weeks ago. 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 She has been requested to have a Port-A-Cath placed by her oncologist for administering chemotherapy. She is taken to surgery at this time for Port-A-Cath placement. [facility] Past Medical History Medical History Adrenal insufficiency Arthritis Asthma Benign hypertension BMI 31.0-31.9,adult Cervical disc disease Chronic GERD 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ne Hypertension Hypothyroidism (acquired) Mild intermittent asthma, uncomplicated Mixed hyperlipidemia Osteoarthritis, multiple sites Pericardial effusion Postmenopausal Sacroiliitis jun 2014 Secondary adrenal insufficiency Situational anxiety Thyroid disease Surgical History Surgical History H/O breast biopsy 2007 H/O Spinal surgery Cervical discectomy 2016 H/O: hysterectomy 2012 History of knee replacement 2019 Hx of right heart catheterization 2006 Hx of right mastectomy 02/11/24 Family History Family History Father Family history of hypercholesterolemia Family history of cardiovascular disease Acute myocardial infarction Family history of Alzheimer's disease Family history of coronary artery disease Mother Family history of hypercholesterolemia Sibling Family history of hypercholesterolemia Malignant neoplasm of prostate Grandparent Family history of cardiac disorder Malignant neoplasm of prostate Other Family history of congestive heart failure Family history of elevated blood lipids Family history of malignant neoplasm of breast in first degree relative Hypertension Social History Social History Smoking status: Never smoker Second hand tobacco smoke exposure: No Alcohol intake: never Substance use: never Substance use type: does not use Do You Feel Safe in your Home?: Yes Lack of Transportation: No Lack of Food: Never True Current Housing: I Have Housing Concerned About Future Housing: No Difficulty Paying Gas/Electric Bills: No Difficulty Paying for Meds: No Currently Unemployed: No Education: High School Diploma/GED Difficulty w/ Childcare or Family Care: No Living arrangements: with family Occupation/Education: retired Gender identity (if verbalized by the patient): Female Sexual Orientation (if Verbalized by the Patient): Straight or Heterosexual Spiritual care concerns: No Agree to blood products: Yes Same Day Admit/Disch: Med Pre-admit Medications Home Medications Medication Instructions Recorded Confirmed Type acetaminophen 325 mg capsule 325 mg PO Q6H PRN Pain (Scale 07/06/23 03/28/24 History (Tylenol) Score 4-6) montelukast 10 mg tablet 10 mg PO DAILY #90 tabs 08/24/23 03/28/24 Rx levothyroxine 75 mcg tablet See Rx Instructions .Route 12/20/23 03/28/24 Rx .COMPLEX #95 tabs prednisone 1 mg tablet 5 mg PO DAILY 90 days #450 tabs 03/10/24 03/28/24 Rx albuterol sulfate 90 mcg/actuation 1 puff inhalation Q4H PRN 03/16/24 03/28/24 Rx aerosol inhaler Shortness Of Breath Or Wheezing #8.5 grams tramadol 50 mg tablet 50 mg PO Q6H PRN pain #10 tabs 03/29/24 Rx Review of Systems Review of Systems All systems reviewed & are unremarkable except as noted in HPI and below (HPI) Exam Const: General: comfortable, no acute distress, alert and awake HENMT: Head: normocephalic and atraumatic Mouth: Yes Normal oral and palatal mucosa present Eyes: Co
[2024-03-29 13:53] LABS: Hematocrit 29.7 % (37.0-47.0); Hemoglobin 9.8 g/dL (12.0-15.0)
[2024-03-29 14:32] VITALS: BMI 23.6
--- NOTE | 2024-03-29 14:35 | SUR.PREOP ---
Patient arrived 1.5 hours early, discussed surgery time with patient. Patient placed in room 11 when it became available.
--- NOTE | 2024-03-29 16:58 | WPDHPUPDATE1 ---
History and Physical Update Update Date/Time: 03/29/24 16:58 History and Physical has been reviewed, including an updated exam of the patient. There are NO changes in the patient's condition. Risks, benefits, and alternatives have been discussed and questions answered. Patient agrees to proceed with procedure.
[2024-03-29] MEDS: ceFAZolin 2 GM/D5W 50 ML 2 GM/50 ML BAG IVPB (18:33)
[2024-03-29] MEDS: BUPIVACAINE/EPINEPHRINE 0.5% 30 ML VIAL 20 ML INFILTRATE (18:54)
[2024-03-29] MEDS: HEPARIN SODIUM 1,000 UNITS/ML VIAL 1000 UNITS IV PUSH (18:54)
[2024-03-29 19:24] VITALS: BP 131/61; PULSE 63; RESP 16; O2SAT 98
--- NOTE | 2024-03-29 19:28 | W.PM.PROC2 ---
Procedure Note - Detailed Date of Procedure 03/29/24 Pre-op Diagnosis Right breast cancer, inadequate venous access for chemotherapy Post-op Diagnosis Same Procedure Performed Placement left subclavian vortex Port-A-Cath Surgeon Renan Hernandez MD Room Service Supervisor Michelle Rios [facility] Anesthesia MAC and Local Indications Patient has a triple negative right breast cancer that was very large. She had a simple mastectomy and sentinel node biopsy which has healed. She is going to receive chemotherapy and her oncologist recommended placement of a Port-A-Cath for this purpose. Findings Left subclavian vortex Port-A-Cath with tip in the distal SVC Description of Procedure Patient was taken to surgery and sedation was administered. Prep and drape of the left subclavian and left neck were carried out. The proposed incision was marked on the skin. Local anesthesia was infiltrated into the skin and the deeper tissues. Incision was made and dissection was carried down through the subcutaneous. The pectoralis major fascia was exposed. I created a subfascial pocket caudally from the incision. I then injected additional local into the wound and under the left subclavian position. A single puncture was used to cannulate the left subclavian vein. A guidewire passed readily. C-arm fluoroscopy showed that the guidewire was in the distal SVC and right atrium. I then used fluoroscopy to measure the length of Port-A-Cath that would be needed. The Port-A-Cath was cut to the appropriate length. I then passed an introducer and sleeve over the guidewire. This was done under fluoroscopy as well. The guidewire and introducer were removed. The Port-A-Cath tubing was passed through the sleeve and into the superior vena cava. We checked its location with fluoroscopy. It looked satisfactory and then we removed the sheath. I again checked the Port-A-Cath site position with fluoroscopy. All looked quite good. I checked the Port-A-Cath and it aspirated blood and flushed easily with heparin. The Port-A-Cath was sutured to the pectoralis major fascia with interrupted 3-0 silk suture. It was checked again and aspirated blood as well as flushing with heparin easily. I then closed the wound with running layered closure of 2-0 Vicryl. The skin was closed with running 4-0 Monocryl skin suture. Wound was dressed with Exofin surgical adhesive. The patient was awakened and taken to outpatient surgery in good condition. Sponge needle counts were correct x2. Implants Left subclavian vortex Port-A-Cath Estimated Blood Loss -5 Drains No Packing No Pathology None sent Complications No immediate complications Condition Stable Disposition Same day [facility] Billing Surgery - Charge Forward: Surgery Billing (Placement Port-A-Cath under fluoroscopy)
[2024-03-29 19:50] VITALS: BP 148/60; PULSE 61; RESP 16
[2024-03-29 20:10] VITALS: BP 151/60; PULSE 62; RESP 16
[2024-03-29 20:30] VITALS: BP 151/66; PULSE 65; RESP 16
== END 2024-03-29 20:45 | disposition home or self-care (01) ==
PROVIDERS: PCP Family Medicine; Visit Provider Surgery
PROC: (CPT 36561; principal; 2024-03-29 13:30)
DX: C50.911 Malignant neoplasm of unspecified site of right female breast (principal); Z17.1 Estrogen receptor negative status [ER-]; I10 Essential (primary) hypertension; J45.20 Mild intermittent asthma, uncomplicated; E03.9 Hypothyroidism, unspecified; E27.40 Unspecified adrenocortical insufficiency; E87.1 Hypo-osmolality and hyponatremia; E78.2 Mixed hyperlipidemia; K21.9 Gastro-esophageal reflux disease without esophagitis; Z90.11 Acquired absence of right breast and nipple; Z79.51 Long term (current) use of inhaled steroids
CPT/HCPCS: 36561; 36415; 77001; 85014; 85018; C1788; J0690; J1100; J1644; J1885; J2250; J2405; J2704; J3010; J7030; J7120

== ENCOUNTER 2024-09-22 12:25 | Outpatient (CLI) | payer MEDICARE, SELFPAY ==
--- NOTE | ~2024-09-22 | CT_ITS ---
Clinical Indication: Breast cancer CT Scan of the Chest, Abdomen, and Pelvis with Contrast: Technique: Contiguous sections were acquired throughout the chest, abdomen, and pelvis after intraven ous administration of 100 cc of Omnipaque 350. Dose reduction technique was used on this scan by uti lizing automated exposure control and iterative reconstruction technique. The dose-length product (DL P) was 729.20 mGy-cm. Comparison: 02/08/2024 Findings: There is new mediastinal lymphadenopathy, suspicious for metastatic disease. Right paratracheal strip e lymph node measures 2.5 x 2.3 cm. Right hilar lymph node measures 3.0 x 3.3 cm. There is subcarinal lymph node which measures 2.0 x 2.3 cm. Additional more inferior right perihilar lymph node measures 1.8 cm in diameter. There is no evidence of pleural or pericardial effusion. Status post interval right mastectomy. There is a 9 mm peripheral right lower lobe pulmonary nodule, new from prior exam (axial image 95). T here is a new 3 mm nodule in the inferior right upper lobe (axial image 70). There is mild left basil ar atelectatic change. The liver, spleen, pancreas, adrenals and kidneys are within normal limits. Cholecystectomy clips are present. No evidence of aortic aneurysm. No lymphadenopathy. No bowel obstruction or bowel wall thickening. There is no evidence to suggest acute appendicitis. Urinary bladder is unremarkable. No pelvic mass seen. No ascites. Impression: Interval development of mediastinal/right hilar lymphadenopathy, compatible with metastatic disease. Please see details above. 9 mm right lower lobe nodule and 3 mm right upper lobe nodule, not clearly seen on prior exam. These are indeterminate, and metastatic pulmonary lesions are not excluded. Status post interval right mastectomy. No evidence for metastatic disease in the abdomen or pelvis. Reviewed, dictated and finalized at location . R REPRESENTATIVE Impression: Interval development of mediastinal/right hilar lymphadenopathy, compatible wit h metastatic disease. Please see details above. 9 mm right lower lobe nodule and 3 mm right upper lobe nodule, not clearly seen on prior exam. These are indeterminate, and metastatic pulmonary lesions are n ot excluded. Status post interval right mastectomy. No evidence for metastatic disease in the abdomen or pelvis.
[2024-09-22 12:54] LABS: Estimated Glomerular Filt Rate > 60
== END 2024-09-22 12:26 | disposition home or self-care (01) ==
LOC: MICIMG 12:26
PROVIDERS: PCP Internal Medicine Medical Oncology; Visit Provider Internal Medicine Medical Oncology
DX: C50.311 Malignant neoplasm of lower-inner quadrant of right female breast (principal); Z17.1 Estrogen receptor negative status [ER-]; R91.1 Solitary pulmonary nodule
CPT/HCPCS: 71260; 74177; Q9967

== ENCOUNTER 2025-02-01 14:41 | Outpatient (CLI) | payer MEDICARE, SELFPAY ==
--- NOTE | ~2025-02-01 | MR_ITS ---
EXAMINATION: MR brain/brain stem wo/w con DATE: 02/01/2025 15:35 INDICATION: Malignant neoplasm of breast metastatic to mediastinum. TECHNIQUE: Magnetic resonance imaging (MRI) of the brain and brainstem was performed without and with 10 mL ProHance intravenous contrast. COMPARISON: Brain MRI 02/04/2017 FINDINGS: There are scattered areas of nonspecific increased T2-weighted signal intensity in the cere bral white matter, which is within normal limits for the patient's age. There is an 11 mm enhancing m ass in the cerebellum on the right with surrounding vasogenic edema. There is a 7 mm enhancing mass i n the right posterior midbrain with adjacent vasogenic edema. There is a 4 mm enhancing mass in left internal capsule. There is no acute ischemic infarct or intracranial hemorrhage. The ventricles are n ormal in size. There is mild mucosal thickening in the ethmoid sinuses. There are likely changes of o cular lens replacement surgeries. There are trace bilateral mastoid effusions. IMPRESSION: 1. Three brain masses, consistent with metastatic disease. Reviewed, dictated and finalized at location B.
== END 2025-02-01 14:42 | disposition home or self-care (01) ==
LOC: MICIMG 14:43
PROVIDERS: PCP Family Medicine; Visit Provider Internal Medicine Medical Oncology
DX: C50.311 Malignant neoplasm of lower-inner quadrant of right female breast (principal); C78.1 Secondary malignant neoplasm of mediastinum; R41.0 Disorientation, unspecified; Z17.1 Estrogen receptor negative status [ER-]
CPT/HCPCS: 70553; A9579

== ENCOUNTER 2025-02-05 12:04 | Inpatient (IN) | payer MEDICARE, SELFPAY ==
[2025-02-05] VITALS (7 sets, daily range): BP systolic 142–193; BP diastolic 81–120; PULSE 55–89; RESP 17–22; TEMP 36.4–36.6; O2SAT 95–99; BMI 22.6
--- NOTE | ~2025-02-05 | CT_ITS ---
EXAMINATION: CT brain wo con DATE: 02/05/2025 13:14 INDICATION: Altered mental status TECHNIQUE: Computed tomography (CT) of the head was performed without intravenous contrast. Sagittal and coronal reconstructions were performed. The mA was adjusted according to patient size. Iterative reconstruction technique was employed. The dose-length product was 1210.67 mGy-cm. COMPARISON: Brain MR dated 02/01/2025 FINDINGS: Evaluation mildly limited by some streak and motion artifact. The small enhancing lesions identified on the prior brain MR are indiscernible from the surrounding brain parenchyma on the noncontrast CT i maging. No acute intracranial hemorrhage, acute infarction or abnormal extra axial fluid collection. There is mild scattered white matter hypoattenuation consistent with chronic small vessel ischemic di sease. Ventricles are normal and symmetric. Changes of bilateral intraocular lens replacement. The o rbits, paranasal sinuses and mastoid air cells are normal. IMPRESSION: 1. No acute intracranial process. Evaluation mildly limited by some streak and motion artifact. 2. The 3 previously noted small enhancing lesions on prior MRI, suspicious for metastatic disease are indistinct serosal both in the surrounding brain parenchyma on the current noncontrast CT. 3. Mild scattered white matter hypoattenuation consistent with chronic small vessel ischemic disease. Reviewed, dictated and finalized at location A. IMPRESSION: 1. No acute intracranial process. Evaluation mildly limited by some streak and motion artifact. 2. The 3 previously noted small enhancing lesions on prior MRI, suspicious for metastatic disease are indistinct serosal both in the surrounding brain parench yma on the current noncontrast CT. 3. Mild scattered white matter hypoattenuation consistent with chronic small ve ssel ischemic disease.
--- NOTE | 2025-02-05 12:38 | ECG_ITS ---
Test Date: 2025-02-05 14:23:59 Measurements Intervals [place] Rate: 72 P: 68 MI: 124 QRS: 1 QRSD: 81 T: 45 QT: 377 QTc: 415 Interpretive Statements SINUS RHYTHM WITH SINUS ARRHYTHMIA SEPTAL MYOCARDIAL INFARCTION , OF INDETERMINATE AGE [40+ ms Q WAVE IN V1/V2] No previous ECG available for comparison Electronically Signed On 02-06-2025 16:39:12 CDT by Isis Farah M.D.
--- NOTE | 2025-02-05 12:39 | ED_ITS ---
HPI - Altered Mental Status General Chief Complaint: Weakness <Leanne Benson APRN - Last Filed: 02/05/25 12:40> Stated Complaint: AMS, weakness <Leanne Benson APRN - Last Filed: 02/05/25 12:40> Time Seen by Provider: 02/05/25 12:30 <Leanne Benson APRN - Last Filed: 02/05/25 12:40> Focused HPI: Patient is a 79-year-old female who presents to the ER with weakness. GENERAL: Well-appearing, well-nourished, and in no acute distress. HEAD: Normocephalic, atraumatic. CHEST: Clear to auscultation. ?No respiratory distress. HEART: Regular rate and rhythm.? NEURO: ?Alert and oriented x3. Patient screened in triage and initial orders placed.? ?Additional care and disposition to be based upon?diagnostic testing and treatment. <Leanne Benson APRN - Last Filed: 02/05/25 12:40> History of Present Illness HPI narrative: 79-year-old female with history of metastatic breast cancer that lives at home and is cared for by family presents the emergency department for evaluation for increased altered mental status. states that the patient's mental status has worsened over the last few weeks. But has acutely worsened over the last few days. He states he is unable to care for her at home in this state. Patient is receiving oral chemotherapy with the last dose approximately 3 weeks ago, patient follows up with Dr. Maldonado for previous radiation oncology and falls up with Dr. Trujillo for oncology. Family wishes for the patient to stay at our facility. <Yon Valderrama MD - Last Filed: 02/05/25 22:26> Related Data Home Medications: Home Medications ?Medication ?Instructions ?Recorded ?Confirmed ?Last Taken ?Type acetaminophen 325 mg capsule 325 mg PO Q6H PRN Pain (Scale 07/06/23 09/25/24 03/28/24 History (Tylenol) Score 4-6) potassium chloride 10 mEq 10 meq PO DAILY 02/05/25 02/05/25 Unknown History tablet,extended release <Leanne Benson APRN - Last Filed: 02/05/25 12:40> Allergies/Adverse Reactions: Allergies Allergy/AdvReac Type Severity Reaction Status Date / Time No Known Allergies Allergy Verified 09/25/24 13:26 <Leanne Benson APRN - Last Filed: 02/05/25 12:40> Review of Systems 2 Review of Systems: All systems reviewed & are unremarkable except as noted in HPI and below <Yon Valderrama MD - Last Filed: 02/05/25 22:26> [facility] Past Medical History Medical History: Medical History Situational anxiety Secondary adrenal insufficiency Postmenopausal Pericardial effusion Chronic GERD Benign hypertension Cervical disc disease Sacroiliitis jun 2014 BMI 31.0-31.9,adult 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ne Osteoarthritis, multiple sites Mild intermittent asthma, uncomplicated Mixed hyperlipidemia Hypothyroidism (acquired) Adrenal insufficiency Asthma Arthritis Hypertension Thyroid disease <Leanne Benson APRN - Last Filed: 02/05/25 12:40> Surgical History Surgical History: Surgical History Hx of right mastectomy 02/11/24 H/O: hysterectomy 2012 Hx of right heart catheterization 2006 History of knee replacement 2018 H/O Spinal surgery Cervical discectomy 2017 H/O breast biopsy 2007 <Leanne Benson APRN - Last Filed: 02/05/25 12:40> Family History Family History: Family History Father Family history of hypercholesterolemia Family history of cardiovascular disease Acute myocardial infarction Family history of Alzheimer's disease Family history of coronary artery disease Mother Family history of hypercholesterolemia Sibling Family history of hypercholesterolemia Malignant neoplasm of prostate Grandparent Family history of cardiac disorder Malignant neoplasm of prostate Other Family history of congestive heart failure Family history of elevated blood lipids Family history of malignant neoplasm of breast in first degree relative Hypertension <Leanne Benson APRN - Last Filed: 02/05/25 12:40> Social History Social History: Social History Smoking status: Never smoker Second hand tobacco smoke exposure: No Alcohol intake: never Substance use: never Substance use type: does not use Do You Feel Safe in your Home?: Yes Lack of Transportation: No Lack of Food: Never True Current Housing: I Have Housing Concerned About Future Housing: No Difficulty Paying Gas/Electric Bills: No Difficulty Paying for Meds: No Currently Unemployed: No Education: High School Diploma/GED Difficulty w/ Childcare or Family Care: No Living arrangements: with family Occupation/Education: retired Gender identity (if verbalized by the patient): Female Sexual Orientation (if Verbalized by the Patient): Straight or Heterosexual Spiritual care concerns: No Agree to blood products: Yes <Leanne Benson, FAMILY INDEPENDENCE CASE MANAGER - Last Filed: 02/05/25 12:40> Course Vital Signs Vital signs: Vital Signs Temperature 97.6 F 02/05/25 12:27 Pulse Rate 65 02/05/25 12:27 Respiratory Rate 17 02/05/25 12:27 Blood Pressure 148/81 H 02/05/25 12:27 Pulse Oximetry 99 02/05/25 12:27 Oxygen Delivery Room Air 02/05/25 12:27 Temperature 97.8 F 02/05/25 21:21 Pulse Rate 55 L 02/05/25 21:21 Respiratory Rate 20 02/05/25 21:21 Blood Pressure 142/83 H 02/05/25 21:21 Pulse Oximetry 95 02/05/25 21:21 Oxygen Delivery Room Air 02/05/25 12:27 <Leanne Benson, FAMILY INDEPENDENCE CASE MANAGER - Last Filed: 02/05/25 12:40> Vital Signs Temperature 97.6 F 02/05/25 12:27 Pulse Rate 65 02/05/25 12:27 Respiratory Rate 17 02/05/25 12:27 Blood Pressure 148/81 H 02/05/25 12:27 Pulse Oximetry 99 02/05/25 12:27 Oxygen Delivery Room Air 02/05/25 12:27 Temperature 97.8 F 02/05/25 21:21 Pulse Rate 55 L 02/05/25 21:21 Respiratory Rate 20 02/05/25 21:21 Blood Pressure 142/83 H 02/05/25 21:21 Pulse Oximetry 95 02/05/25 21:21 Oxygen Delivery Room Air 02/05/25 12:27 <Yon Valderrama MD - Last Filed: 02/05/25 22:26> MDM - Altered Mental Status MDM Narrative Medical decision making narrative: 79-year-old female presented emergency department for evaluation for worsening altered mental status. Patient is currently afebrile but does have a leukocytosis of 12.3 the hemoglobin of 12.8. INR is 1.1, patient has no significant abnormalities on her CMP, proBNP is elevated at 1810. It was hypertensive. Patient was treated with single dose of IV Lasix. Head CT did show metastatic spread. Case was discussed with the hospitalist and patient was admitted for further evaluation of the altered mental status and also for anticipated mcfp placement. PT OT and care coordination were placed. Patient family were updated on the plan for admission. <Yon Valderrama MD - Last Filed: 02/05/25 22:26> Differential Diagnosis Differential diagnosis: Likely altered mental status, hyponatremia, subarachnoid hemorrhage and sepsis <Yon Valderrama MD - Last Filed: 02/05/25 22:26> Lab Data Attestation: I reviewed the patient's lab results. <Yon Valderrama MD - Last Filed: 02/05/25 22:26> Result diagrams: 02/05/25 14:39 02/05/25 14:39 <Leanne Benson APRN - Last Filed: 02/05/25 12:40> Labs: Lab Results 02/05/25 02/05/25 02/05/25 Range/Units 14:38 14:39 16:47 WBC 12.3 H (4.5-10.0) K/mm3 RBC 4.11 L (4.2-5.4) M/mm3 Hgb 12.8 D (12.0-15.0) g/dL Hct 40.4 (37.0-47.0) % MCV 98.3 (80-100) fl MCH 31.1 (26-34) pg MCHC 31.7 L (32-36) g/dl RDW 20.7 H (11.5-14.5) % Plt Count 198 (150-375) k/mm3 MPV 10.8 H (7.4-10.4) fl Immature Gran % (Auto) Not Reportable Neut % (Auto) Not Reportable Lymph % (Auto) Not Reportable [place] % (Auto) Not Reportable Eos % (Auto) Not Reportable Baso % (Auto) Not Reportable Lymph # (Auto) Not Reportable [place] # (Auto) Not Reportable Eos # (Auto) Not Reportable Baso # (Auto) Not Reportable Abs Immat Gran (auto) Not Reportable Absolute Neuts (auto) Not Reportable Absolute Nucleated RBC Not Reportable Total Counted 100 Neutrophils % (Manual) 89 H (46-73) % Band Neutrophils % 0 (0-6) % Lymphocytes % (Manual) 5.0 L (18-44) % Monocytes % (Manual) 6 (3-9) % Nucleated RBC % Not Reportable Abs Neuts (Manual) 10.94 H (1.7-7.2) K/mm3 Abs Lymphs (Manual) 0.61 L (1.1-4.5) K/mm3 Abs Monocytes (Manual) 0.73 (0.1-0.90) K/mm3 Platelet Estimate Adequate (Adequate) Hypochromasia 1+ Anisocytosis 3+ Schistocytes None seen PT 14.3 (11.1-14.7) Seconds INR 1.1 APTT 20.4 L (22.3-36.8) Seconds Sodium 142 (137-145) mmol/L Potassium 4.6 (3.4-5.0) mmol/L Chloride 104 (98-107) mmol/L Carbon Dioxide 30 (22-30) mmol/L Anion Gap 8 (4-12) mmol/L BUN 38 H D (7-17) mg/dL Creatinine 1.12 H (0.7-1.0) mg/dL Estim Creat Clear Calc 31 ml/min Estimated GFR 47 L (59 - ) Glucose 97 (65-110) mg/dL POC Capillary Glucose 98 (65-105) mg/dl Calcium 9.6 (8.4-10.2) mg/dL Total Bilirubin 1.5 H (0.2-1.3) mg/dL AST 29 (14-36) U/L ALT 22 (6-35) U/L Alkaline Phosphatase 94 (38-126) U/L Troponin I 0.043 H* (0.000-0.034) ng/mL NT-Pro-B Natriuret Pep 1810 H (19.9-100) pg/mL Total Protein 7.0 (6.3-8.2) g/dL Albumin 3.8 (3.5-5.1) g/dL TSH 1.350 (0.465-4.680) uIU/mL Urine Color Yellow (Yellow) Urine Appearance Clear (Clear) Urine pH 5.0 (5.0-9.0) Ur Specific [place] 1.024 (1.001-1.035) Urine Protein 1+ H (Negative) mg/dL Urine Glucose (UA) Negative (Negative) mg/dL Urine Ketones Negative (Negative) mg/dL Ur Blood (Man) Negative (Negative) Urine Nitrate Negative (Negative) Urine Bilirubin Negative (Negative) Urine Urobilinogen 1.0 (<2.0) mg/dL Leukocyte Esterase Rfl Negative (Negative) OSCAR/UL Urine RBC 0-2 (0-2) /hpf Urine WBC 0-5 (0-3) /hpf Ur Squamous Epith Cells None seen (Few) /hpf Urine Bacteria None seen /hpf Urine Casts 3-5 Hyaline Casts Present (None) /lpf 02/05/25 Range/Units 17:32 WBC (4.5-10.0) K/mm3 RBC (4.2-5.4) M/mm3 Hgb (12.0-15.0) g/dL Hct (37.0-47.0) % MCV (80-100) fl MCH (26-34) pg MCHC (32-36) g/dl RDW (11.5-14.5) % Plt Count (150-375) k/mm3 MPV (7.4-10.4) fl Immature Gran % (Auto) Neut % (Auto) Lymph % (Auto) [place] % (Auto) Eos % (Auto) Baso % (Auto) Lymph # (Auto) [place] # (Auto) Eos # (Auto) Baso # (Auto) Abs Immat Gran (auto) Absolute Neuts (auto) Absolute Nucleated RBC Total Counted Neutrophils % (Manual) (46-73) % Band Neutrophils % (0-6) % Lymphocytes % (Manual) (18-44) % Monocytes % (Manual) (3-9) % Nucleated RBC % Abs Neuts (Manual) (1.7-7.2) K/mm3 Abs Lymphs (Manual) (1.1-4.5) K/mm3 Abs Monocytes (Manual) (0.1-0.90) K/mm3 Platelet Estimate (Adequate) Hypochromasia Anisocytosis Schistocytes PT (11.1-14.7) Seconds INR APTT (22.3-36.8) Seconds Sodium (137-145) mmol/L Potassium (3.4-5.0) mmol/L Chloride (98-107) mmol/L Carbon Dioxide (22-30) mmol/L Anion Gap (4-12) mmol/L BUN (7-17) mg/dL Creatinine (0.7-1.0) mg/dL Estim Creat Clear Calc ml/min Estimated GFR (59 - ) Glucose (65-110) mg/dL POC Capillary Glucose (65-105) mg/dl Calcium (8.4-10.2) mg/dL Total Bilirubin (0.2-1.3) mg/dL AST (14-36) U/L ALT (6-35) U/L Alkaline Phosphatase (38-126) U/L Troponin I 0.021 D (0.000-0.034) ng/mL NT-Pro-B Natriuret Pep (19.9-100) pg/mL Total Protein (6.3-8.2) g/dL Albumin (3.5-5.1) g/dL TSH 0.664 (0.465-4.680) uIU/mL Urine Color (Yellow) Urine Appearance (Clear) Urine pH (5.0-9.0) Ur Specific [place] (1.001-1.035) Urine Protein (Negative) mg/dL Urine Glucose (UA) (Negative) mg/dL Urine Ketones (Negative) mg/dL Ur Blood (Man) (Negative) Urine Nitrate (Negative) Urine Bilirubin (Negative) Urine Urobilinogen (<2.0) mg/dL Leukocyte Esterase Rfl (Negative) OSCAR/UL Urine RBC (0-2) /hpf Urine WBC (0-3) /hpf Ur Squamous Epith Cells (Few) /hpf Urine Bacteria /hpf Urine Casts Hyaline Casts (None) /lpf <Leanne Benson, FAMILY INDEPENDENCE CASE MANAGER - Last Filed: 02/05/25 12:40> Lab Results 02/05/25 02/05/25 02/05/25 Range/Units 14:38 14:39 16:47 WBC 12.3 H (4.5-10.0) K/mm3 RBC 4.11 L (4.2-5.4) M/mm3 Hgb 12.8 D (12.0-15.0) g/dL Hct 40.4 (37.0-47.0) % MCV 98.3 (80-100) fl MCH 31.1 (26-34) pg MCHC 31.7 L (32-36) g/dl RDW 20.7 H (11.5-14.5) % Plt Count 198 (150-375) k/mm3 MPV 10.8 H (7.4-10.4) fl Immature Gran % (Auto) Not Reportable Neut % (Auto) Not Reportable Lymph % (Auto) Not Reportable [place] % (Auto) Not Reportable Eos % (Auto) Not Reportable Baso % (Auto) Not Reportable Lymph # (Auto) Not Reportable [place] # (Auto) Not Reportable Eos # (Auto) Not Reportable Baso # (Auto) Not Reportable Abs Immat Gran (auto) Not Reportable Absolute Neuts (auto) Not Reportable Absolute Nucleated RBC Not Reportable Total Counted 100 Neutrophils % (Manual) 89 H (46-73) % Band Neutrophils % 0 (0-6) % Lymphocytes % (Manual) 5.0 L (18-44) % Monocytes % (Manual) 6 (3-9) % Nucleated RBC % Not Reportable Abs Neuts (Manual) 10.94 H (1.7-7.2) K/mm3 Abs Lymphs (Manual) 0.61 L (1.1-4.5) K/mm3 Abs Monocytes (Manual) 0.73 (0.1-0.90) K/mm3 Platelet Estimate Adequate (Adequate) Hypochromasia 1+ Anisocytosis 3+ Schistocytes None seen PT 14.3 (11.1-14.7) Seconds INR 1.1 APTT 20.4 L (22.3-36.8) Seconds Sodium 142 (137-145) mmol/L Potassium 4.6 (3.4-5.0) mmol/L Chloride 104 (98-107) mmol/L Carbon Dioxide 30 (22-30) mmol/L Anion Gap 8 (4-12) mmol/L BUN 38 H D (7-17) mg/dL Creatinine 1.12 H (0.7-1.0) mg/dL Estim Creat Clear Calc 31 ml/min Estimated GFR 47 L (59 - ) Glucose 97 (65-110) mg/dL POC Capillary Glucose 98 (65-105) mg/dl Calcium 9.6 (8.4-10.2) mg/dL Total Bilirubin 1.5 H (0.2-1.3) mg/dL AST 29 (14-36) U/L ALT 22 (6-35) U/L Alkaline Phosphatase 94 (38-126) U/L Troponin I 0.043 H* (0.000-0.034) ng/mL NT-Pro-B Natriuret Pep 1810 H (19.9-100) pg/mL Total Protein 7.0 (6.3-8.2) g/dL Albumin 3.8 (3.5-5.1) g/dL TSH 1.350 (0.465-4.680) uIU/mL Urine Color Yellow (Yellow) Urine Appearance Clear (Clear) Urine pH 5.0 (5.0-9.0) Ur Specific [place] 1.024 (1.001-1.035) Urine Protein 1+ H (Negative) mg/dL Urine Glucose (UA) Negative (Negative) mg/dL Urine Ketones Negative (Negative) mg/dL Ur Blood (Man) Negative (Negative) Urine Nitrate Negative (Negative) Urine Bilirubin Negative (Negative) Urine Urobilinogen 1.0 (<2.0) mg/dL Leukocyte Esterase Rfl Negative (Negative) OSCAR/UL Urine RBC 0-2 (0-2) /hpf Urine WBC 0-5 (0-3) /hpf Ur Squamous Epith Cells None seen (Few) /hpf Urine Bacteria None seen /hpf Urine Casts 3-5 Hyaline Casts Present (None) /lpf 02/05/25 Range/Units 17:32 WBC (4.5-10.0) K/mm3 RBC (4.2-5.4) M/mm3 Hgb (12.0-15.0) g/dL Hct (37.0-47.0) % MCV (80-100) fl MCH (26-34) pg MCHC (32-36) g/dl RDW (11.5-14.5) % Plt Count (150-375) k/mm3 MPV (7.4-10.4) fl Immature Gran % (Auto) Neut % (Auto) Lymph % (Auto) [place] % (Auto) Eos % (Auto) Baso % (Auto) Lymph # (Auto) [place] # (Auto) Eos # (Auto) Baso # (Auto) Abs Immat Gran (auto) Absolute Neuts (auto) Absolute Nucleated RBC Total Counted Neutrophils % (Manual) (46-73) % Band Neutrophils % (0-6) % Lymphocytes % (Manual) (18-44) % Monocytes % (Manual) (3-9) % Nucleated RBC % Abs Neuts (Manual) (1.7-7.2) K/mm3 Abs Lymphs (Manual) (1.1-4.5) K/mm3 Abs Monocytes (Manual) (0.1-0.90) K/mm3 Platelet Estimate (Adequate) Hypochromasia Anisocytosis Schistocytes PT (11.1-14.7) Seconds INR APTT (22.3-36.8) Seconds Sodium (137-145) mmol/L Potassium (3.4-5.0) mmol/L Chloride (98-107) mmol/L Carbon Dioxide (22-30) mmol/L Anion Gap (4-12) mmol/L BUN (7-17) mg/dL Creatinine (0.7-1.0) mg/dL Estim Creat Clear Calc ml/min Estimated GFR (59 - ) Glucose (65-110) mg/dL POC Capillary Glucose (65-105) mg/dl Calcium (8.4-10.2) mg/dL Total Bilirubin (0.2-1.3) mg/dL AST (14-36) U/L ALT (6-35) U/L Alkaline Phosphatase (38-126) U/L Troponin I 0.021 D (0.000-0.034) ng/mL NT-Pro-B Natriuret Pep (19.9-100) pg/mL Total Protein (6.3-8.2) g/dL Albumin (3.5-5.1) g/dL TSH 0.664 (0.465-4.680) uIU/mL Urine Color (Yellow) Urine Appearance (Clear) Urine pH (5.0-9.0) Ur Specific [place] (1.001-1.035) Urine Protein (Negative) mg/dL Urine Glucose (UA) (Negative) mg/dL Urine Ketones (Negative) mg/dL Ur Blood (Man) (Negative) Urine Nitrate (Negative) Urine Bilirubin (Negative) Urine Urobilinogen (<2.0) mg/dL Leukocyte Esterase Rfl (Negative) OSCAR/UL Urine RBC (0-2) /hpf Urine WBC (0-3) /hpf Ur Squamous Epith Cells (Few) /hpf Urine Bacteria /hpf Urine Casts Hyaline Casts (None) /lpf <Yon Valderrama MD - Last Filed: 02/05/25 22:26> Imaging Data Radiologist's impression: Impressions Head CT 02/05/25 13:19 IMPRESSION: 1. No acute intracranial process. Evaluation mildly limited by some streak and motion artifact. 2. The 3 previously noted small enhancing lesions on prior MRI, suspicious for metastatic disease are indistinct serosal both in the surrounding brain parenchyma on the current noncontrast CT. 3. Mild scattered white matter hypoattenuation consistent with chronic small vessel ischemic disease. <Yon Valderrama MD - Last Filed: 02/05/25 22:26> Discharge Plan Discharge Clinical Impression: Adult failure to thrive, CHF (congestive heart failure) <Leanne Benson APRN - Last Filed: 02/05/25 12:40> Patient Disposition: Still a Patient <Leanne Benson APRN - Last Filed: 02/05/25 12:40> Condition: Serious <Leanne Benson APRN - Last Filed: 02/05/25 12:40>
--- OUTSIDE RECORDS SUMMARY | 2025-02-05 14:30 | XMS_ITS ---
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 08/2025 Normochromic anemia 04/26/2024 Encounter for person encountering health service s 03/22/2024 Malignant neoplasm of lower- inner quadrant of right breast of female, estrogen receptor negative 03/19/2024 Cancer Staging:Clinical stage from 03/31/2024:Stage IIIC(cT4b, cN0(sn), cM0, G3, ER-, MO-, HER2-) - Signed by Jean Trujillo DO on 07/11/2024 Current Treatment and Therapy Plans Capecitabine PO 28 day Cycles - Breast* Plan Start Date:11/30/2024 Plan Provider:Jean Trujillo DO Linked Problems Encounter for person encount ering health servicesMalignant neoplasm of lower- inner quadrant of right breast of female, estrogen receptor negative (HCC) Treatment Medications Current Day (Day 1 , Cycle 3 - Planned for 03/27/2025) Next Day (Day 1, Cycle 4 - Planned for 06/19/2025) capecitabine (XELODA) capecitabine (XELO DA) 500 mg tablet capecitabine (XELODA) 500 mg tablet IV Maintenance Therapy Plan & Alteplase (CATHFLO ACTIVASE) - orders for occluded catheters* Plan Start Date:03/22/2024 Plan Provider:Jean Trujillo DO Linked Problems Malignant neoplasm of lower- inner quadrant of right breast of female, estrogen receptor negative (HCC) Treatment Medications No medications scheduled. Past Treatment and Therapy Plans Oncology Chemotherapy Treatment Plan Name Start Date Discontinue Date Treatment Medications Discontinue Reason Plan Provider Cycles TC: (DOCEtaxe l / Cyclophos phamide) 21 Day Cycles - Breast 4 07/04/2024 cycloPHOSphamide (CYTOXAN)cycloPHOSp hamide IVPB in 250 mL (vial 200 mg/mL)([id number])dexAME THasone (DECADRON)DOCEtaxel (TAXOTERE)DOCEtaxel (TAXOTERE) IVPB in 250 mL (vial 20mg/mL) Therapy Complete Jean Trujillo DO 4 of 4 cycles completed Lifetime Dose Tracking * Chemical Lifetime Dose Automatic Entry Manual Entr y cyclophosphamide 2,269.78 mg/m2 (3,800 mg) 2,269.78 mg /m2 (3,800 mg) 0 mg/m2 (0 mg)
--- OUTSIDE RECORDS SUMMARY | 2025-02-05 14:30 | XMS_ITS | Referral Summary ---
Author Organization [facility] [address] Address [address] [place] [address] Care Team Providers Care Student Loan Counselor Name Role Phone Yolanda Dougherty MD Primary Care Provider [phone] Jean Trujillo DO Unavailable [phone] Encounters Date Type Department Care Team Description 02/05/2025 Telephone [facility] [address] [place] [address] [address] [place] [address] Unique Moya, CLARENCE 02/02/2025 Social Work [facility] [address] [place] [address] [address] [place] [address] Destinee Fernandez LCSW 02/02/2025 Telephone [facility] [address] [place] [address] [address] [place] [address] Unique Moya, CLARENCE 02/01/2025 Documentation [facility] [address] [place] [address] [address] [place] [address] Jean Trujillo, 02/01/2025 Orders Only [facility] [address] [place] [address] [address] [place] [address] ProviderDahiana MD 02/01/2025 Telephone [facility] [address] [place] [address] [address] [place] [address] Aminata Johnson, CLARENCE 01/19/2025 Telephone [facility] [address] [place] [address] [address] [place] [address] Aminata Johnson, COASTAL TUG MATE 01/19/2025 Orders Only [facility] Oncology [address] [place] [address] [address] [place] [address] Jean Trujillo, Malignant neoplasm of lower-inner quadrant of right breast of female, estrogen receptor negative (HCC) (Primary Dx); 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); Confusion 01/19/2025 11:00 AM DRAPERY CUTTER MACHINE Clinical Support [facility] at [address] [address] Malignant neoplasm of lower-inner quadrant of right breast of female, estrogen receptor negative (HCC); Dehydration 01/19/2025 9:30 AM DRAPERY CUTTER MACHINE Clinical Support [facility] Building 2 Radiation Oncology [address] [place] [address] Normochromic anemia (Primary Dx); Malignant neoplasm of lower-inner quadrant of right breast of female, estrogen receptor negative (HCC) 01/18/2025 Telephone [facility] [address] [place] [address] [place] [phone] Aminata Johnson, COASTAL TUG MATE 01/05/2025 12:00 PM DRAPERY CUTTER MACHINE Office Visit [facility] [address] [place] [address] [address] [place] [address] Jean Trujillo, Malignant neoplasm of lower-inner quadrant of right breast of female, estrogen receptor negative (HCC) (Primary Dx); 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); Hypokalemia 01/01/2025 10:19 AM DRAPERY CUTTER MACHINE - 01/01/2025 11:59 PM DRAPERY CUTTER MACHINE Hospital Encounter [address] [address] Malignant neoplasm of lower-inner quadrant of right breast of female, estrogen receptor negative (HCC); Lymphadenopathy, mediastinal Discharge Disposition: Discharge to home or self care 01/01/2025 10:30 AM DRAPERY CUTTER MACHINE Lab [facility] Outpatient Lab at [address] [phone] Malignant neoplasm of lower-inner quadrant of right breast of female, estrogen receptor negative (HCC) (Primary Dx) 12/01/2024 9:45 AM DRAPERY CUTTER MACHINE Office Visit [facility] [address] [place] [phone] Jean Trujillo, Malignant neoplasm of lower-inner quadrant of right breast of female, estrogen receptor negative (HCC) (Primary Dx); Lymphadenopathy, mediastinal; Encounter for person encountering health services; Presence of heart assist device (HCC); 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); Malignant neoplasm metastatic to right lung (HCC) 11/23/2024 Telephone [facility] [address] [place] [address] Hanna Arnold RN 11/21/2024 11:56 AM DRAPERY CUTTER MACHINE - 11/21/2024 11:59 PM DRAPERY CUTTER MACHINE Hospital Encounter [facility] [address] [place] [address] Discharge Disposition: Discharge to home or self care 11/21/2024 7:43 AM DRAPERY CUTTER MACHINE - 11/21/2024 11:59 PM DRAPERY CUTTER MACHINE Hospital Encounter [facility] [address] [place] [address] Rn, Mhb Rad Malignant neoplasm of lower-inner quadrant of right breast of female, estrogen receptor negative (HCC); Pleural mass; Encounter for biopsy; Encounter for therapeutic drug monitoring Discharge Disposition: Discharge to home or self care 11/17/2024 Orders Only [facility] [address] [place] [address] [address] [place] [phone] Jena Trujillo DO Malignant neoplasm of lower-inner quadrant of right breast of female, estrogen receptor negative (HCC) (Primary Dx); Pleural mass; Encounter for biopsy; Encounter for therapeutic drug monitoring 11/17/2024 Documentation [facility] [address] [place] [address] [address] [place] [address] Jean Trujillo DO 11/13/2024 Telephone [facility] [address] [place] [address] [address] [place] [address] Fanny Sibley RN 11/10/2024 11:51 AM DRAPERY CUTTER MACHINE - 11/10/2024 11:59 PM DRAPERY CUTTER MACHINE Hospital Encounter [facility] [address] [place] [address] Discharge Disposition: Discharge to home or self care 11/09/2024 Telephone [facility] Diabetes and Endocrinology [address] [place] [phone] Collins Guadalupe, Elva Guadalupe MD new referral to endocrinology from Last 3 Months Allergies No known active allergies Medications levothyroxine (SYNTHROID) 75 mcg tablet 1 tablet (75 mcg total) 6 days a week and on Sundays a half tablet Active albuterol HFA (PROVENTIL HFA,VENTOLIN HFA,PROAIR HFA) 90 mcg/actuation inhaler INHALE 1 PUFF BY MOUTH EVERY 4 HOURS NEEDED FOR SHORTNESS OF BREATH OR WHEEZING Active predniSONE (DELTASONE) 1 mg tablet Take 5 tablets (5 mg) by mouth daily Active montelukast (SINGULAIR) 10 mg tablet Take 1 tablet (10 mg total) by mouth daily Active cholecalciferol (VITAMIN D-3) 5,000 unit tablet Take 1 tablet (5,000 Units total) by mouth daily Active ondansetron (Zofran) 4 mg tabletIndicatio ns:Cancer Chemotherapy-In duced Nausea and Vomiting Take 1 tablet (4 mg total) by mouth every 6 (six) hours as needed for nausea or vomiting 30 tablet 2 12/01/19 25 Active capecitabine (XELODA) 500 mg tabletIndicatio ns:Malignant neoplasm of lower-inner quadrant of right breast of female, estrogen receptor negative (HCC),Encounter for person encountering health services 1500 mg (3 tabs) in AM and 2000 mg (4 tabs) in PM, Take for 7 days on and 7 days off, then repeat. 98 tablet 3 12/01/19 25 Active megestrol (MEGACE) suspension 400 mg/10 mL Take 10 mL (400 mg total) by mouth daily For appetite and wt 100 mL 01/05/20 25 Active potassium chloride ER (KLOR-CON) 10 mEq CR tabletIndicatio ns:Hypokalemia Take 1 tablet/capsu le (10 mEq total) by mouth daily 30 tablet/caps ule 2 01/05/20 25 Active colestipoL (COLESTID) 1 gram tablet Take 1 tablet (1 g total) by mouth 2 (two) times a day for 7 days 14 tablet 01/18/20 25 Active dexAMETHasone (DECADRON) 4 mg tabletIndicatio ns:Brain mets Take 1 tablet (4 mg total) by mouth 2 (two) times a day with meals 60 tablet 1 02/02/20 25 Active predniSONE (DELTASONE) 20 mg tabletIndicatio ns:diarrhea from treatment Take 2 tablets (40 mg) by mouth daily for 5 days 10 tablet 01/18/20 25 025 Discontinued( erapy completed) dexAMETHasone (DECADRON) 4 mg tabletIndicatio ns:Brain mets Take 1 tablet (4 mg total) by mouth 2 (two) times a day with meals 30 tablet 1 02/02/20 25 025 Discontinued Active Problems Problem Noted Date Diagnosed Date Presence of heart assist device 12/01/2024 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 08/2025 Normochromic anemia 04/26/2024 Encounter for person encountering health service s 03/22/2024 Malignant neoplasm of lower- inner quadrant of right breast of female, estrogen receptor negative 03/19/2024 Cancer Staging:Clinical stage from 03/31/2024:Stage IIIC(cT4b, cN0(sn), cM0, G3, ER-, SC-, HER2-) - Signed by Jean Trujillo DO on 07/11/2024 Social History Tobacco Use Types Packs/Day Years Used Date Smoking Tobacco: Never Smokeless Tobacco: Never AUDIT-C Answer Date Recorded Frequency of Alcohol Consumption Not on file 04/26/2024 Q2: How many drinks containi ng alcohol do you have on a typical day when you are drinking? Patient does not drink Frequency of Binge Drinking Not on file 03/2024 Personal Safety Answer Date Recorded Have you ever been in or are you currently in a harmful physical or emotional relationship or is someone making you feel afraid or unsafe? Denies 11/21/2024 Comments Unknown Sex and Gender Information Value Date Recorded Sex Assigned at Not on file Legal Sex Female 1:58 AM DRAPERY CUTTER MACHINE Gender Identity Not on file Sexual Orientation Not on file Occupation Industry Job Start Date Job End Date [employer]-retired Not on file Not on file Not on nicolas e Last Filed Vital Signs Vital Sign Reading Time Taken Comments Blood Pressure 116/80 01/05/2025 11:59 AM DRAPERY CUTTER MACHINE Pulse 96 01/05/2025 11:59 AM DRAPERY CUTTER MACHINE Temperature 36.4 C (97.5 F) 01/05/2025 11:59 AM DRAPERY CUTTER MACHINE Respiratory Rate 18 01/05/2025 11:5 9 AM DRAPERY CUTTER MACHINE Oxygen Saturation 99% 01/05/2025 11: 59 AM DRAPERY CUTTER MACHINE Inhaled Oxygen Concentration - - Weight 59.7 kg (131 lb 9.8 oz) 01/05/20 25 11:59 AM DRAPERY CUTTER MACHINE with shoes Height 160 cm (5' 3) 11/21/2024 8:09 AM DRAPERY CUTTER MACHINE Body Mass Index 23.31 11/21/2024 8:09 AM DRAPERY CUTTER MACHINE Plan of Treatment Not on file Medical Devices Implanted Type Area Soc Analyst Device Identifier Shelf Expiration Date Model / Serial / Lot Right Knee Replacement Other - see comments Right: Knee Procedures Procedure Name Priority Date/Time Associated Diagnosis Comments MRI BRAIN W WO CONTRAST Schedule Routine, Read Routine (OP Routine) 02/01/2025 4:24 PM CDT EGFR Routine 01/19/2025 10:55 AM DRAPERY CUTTER MACHINE Malignant neoplasm of lower-inner quadrant of right breast of female, estrogen receptor negative (HCC) Dehydration DIFFERENTIAL AUTO Routine 01/19/2025 10: 55 AM DRAPERY CUTTER MACHINE Malignant neoplasm of lower-inner quadrant of right breast of female, estrogen receptor negative (HCC) Dehydration CBC WITH AUTO DIFFERENTIAL Routine 01/19/2025 10:55 AM DRAPERY CUTTER MACHINE Malignant neoplasm of lower-inner quadrant of right breast of female, estrogen receptor negative (HCC) Dehydration COMPREHENSIVE METABOLIC PANEL Routine 01/19/2025 10:55 AM DRAPERY CUTTER MACHINE Malignant neoplasm of lower-inner quadrant of right breast of female, estrogen receptor negative (HCC) Dehydration MAGNESIUM Routine 01/19/2025 10:55 AM DRAPERY CUTTER MACHINE Malignant neoplasm of lower-inner quadrant of right breast of female, estrogen receptor negative (HCC) Dehydration EGFR Routine 01/01/2025 10:19 AM DRAPERY CUTTER MACHINE Malignant neoplasm of lower-inner quadrant of right breast of female, estrogen receptor negative (HCC) Lymphadenopathy, mediastinal DIFFERENTIAL AUTO Routine 01/01/2025 10: 19 AM DRAPERY CUTTER MACHINE Malignant neoplasm of lower-inner quadrant of right breast of female, estrogen receptor negative (HCC) Lymphadenopathy, mediastinal COMPREHENSIVE METABOLIC PANEL Routine 01/01/2025 10:19 AM DRAPERY CUTTER MACHINE Malignant neoplasm of lower-inner quadrant of right breast of female, estrogen receptor negative (HCC) Lymphadenopathy, mediastinal CBC WITH AUTO DIFFERENTIAL Routine 01/01/2025 10:19 AM DRAPERY CUTTER MACHINE Malignant neoplasm of lower-inner quadrant of right breast of female, estrogen receptor negative (HCC) Lymphadenopathy, mediastinal TEMPUS XT DNA AND RNA SOLID TUMOR Routine 12/01/2024 10:35 AM DRAPERY CUTTER MACHINE Malignant neoplasm of lower-inner quadrant of right breast of female, estrogen receptor negative (HCC) Malignant neoplasm metastatic to right lung (HCC) XR CHEST 1 VIEW Timed 11/21/2024 12:[address] NEEDLE BIOPSY LUNG RIGHT Schedule Routine, Read Routine (OP Routine) 11/21/2024 10:54 AM DRAPERY CUTTER MACHINE Malignant neoplasm of lower-inner quadrant of right breast of female, estrogen receptor negative (HCC) Pleural mass Encounter for biopsy SURGICAL PATHOLOGY Routine 11/21/2024 10 :16 AM DRAPERY CUTTER MACHINE Malignant neoplasm of lower-inner quadrant of right breast of female, estrogen receptor negative (HCC) Pleural mass Encounter for biopsy DIFFERENTIAL AUTO Routine 11/21/2024 8:1 3 AM DRAPERY CUTTER MACHINE Malignant neoplasm of lower-inner quadrant of right breast of female, estrogen receptor negative (HCC) Encounter for biopsy Encounter for therapeutic drug monitoring CBC WITH AUTO DIFFERENTIAL Routine 11/21/2024 8:13 AM DRAPERY CUTTER MACHINE Malignant neoplasm of lower-inner quadrant of right breast of female, estrogen receptor negative (HCC) Encounter for biopsy Encounter for therapeutic drug monitoring APTT Routine 11/21/2024 8:13 AM DRAPERY CUTTER MACHINE Malignant neoplasm of lower-inner quadrant of right breast of female, estrogen receptor negative (HCC) Encounter for biopsy Encounter for therapeutic drug monitoring PROTIME-INR Routine 11/21/2024 8:13 AM DRAPERY CUTTER MACHINE Malignant neoplasm of lower-inner quadrant of right breast of female, estrogen receptor negative (HCC) Encounter for biopsy Encounter for therapeutic drug monitoring PET/CT FDG SKULL TO THIGH Schedule Routine, Read Routine (OP Routine) 11/10/2024 1:35 PM DRAPERY CUTTER MACHINE Malignant neoplasm of lower-inner quadrant of right breast of female, estrogen receptor negative (HCC) Lymphadenopathy, mediastinal Triple negative breast cancer (HCC) POCT GLUCOSE DEVICE Routine 11/10/2024 1 2:05 PM DRAPERY CUTTER MACHINE from Last 3 Months Results * MRI Brain W WO Contrast (02/01/2025 4:24 PM CDT) Anatomical Region Laterality Modality Head and Neck N/A Magnetic Resonan ce us Historical Provider MD HARO MRI PROCEDURES Final Result * eGFR (01/19/2025 10:55 AM DRAPERY CUTTER MACHINE) eGFR 66 >=60 mL/min/1. 73 m2 Comment: Interpretive Data Reference Interval Normal >/= 90 mL/min/1.73m2 Mildly decreased* 60 - 89 mL/min/1.73m2 Mildly to moderately decreased 45 - 59 mL/min/1.73m2 Moderately to severely decreased 30 - 44 mL/min/1.73m2 Severely decreased 15 - 29 mL/min/1.73m2 Kidney Failure < 15 mL/min/1.73m2 *Relative to young adult level Estimated glomerular filtration rate is determined by the 2020 CKD-EPI equation recommended by the National Kidney Foundation (A Unifying Approach to GFR Estimation: Recommendations of the NKF-ASK Task Force on Reassessing the Inclusion of Race in Diagnosing Kidney Disease, JASN 2020). The CKD-EPI equation should not be used for patients with unstable renal function and has not been validated in children and those over 70. Current interpretive data was last reviewed 2021. Testing performed by: [address] [address] Blood 01/19/2025 10:5 5 AM DRAPERY CUTTER MACHINE 01/19/2025 11:09 AM DRAPERY CUTTER MACHINE Jean Trujillo DO LAB BLOOD ORDERABLES Final [facility] [address] [facility] [place] [address] * Differential, auto (01/19/2025 10:55 AM DRAPERY CUTTER MACHINE) Neutrophil abs 4.7 1.5 - 6.5 K/cumm Comment:Testing performed by : [address] [address] Imm gran abs 0.0 0.0 - 0.1 K/cumm [facility] Comment:Testing performed by : [address] [address] Lymphocyte abs 0.8 0.8 - 3.3 K/cumm [facility] Comment:Testing performed by : [address] [address] Monocyte abs 0.5 0.2 - 0.8 K/cumm [facility] Comment:Testing performed by : [address] [address] Eosinophil abs 0.1 0.0 - 0.5 K/cumm [facility] Comment:Testing performed by : [address] [address] Basophil abs 0.0 0.0 - 0.1 K/cumm [facility] Comment:Testing performed by : [address] [address] Neutrophil pct 77.9 % [facility] Comment: Interpretive Data Percent cell count reference ranges are not reported, since discordance with absolute values may lead to misinterpretation of CBC data. Current Interpretive Data was last revised on 2018. Testing performed by: [address] [address] Imm gran pct 0.5 % [facility] Comment: Interpretive Data Percent cell count reference ranges are not reported, since discordance with absolute values may lead to misinterpretation of CBC data. Current Interpretive Data was last revised on 2018. Testing performed by: [address] [address] Lymphocyte pct 12.7 % [facility] Comment: Interpretive Data Percent cell count reference ranges are not reported, since discordance with absolute values may lead to misinterpretation of CBC data. Current Interpretive Data was last revised on 2018. Testing performed by: [address] [address] Monocyte pct 7.9 % [facility] Comment: Interpretive Data Percent cell count reference ranges are not reported, since discordance with absolute values may lead to misinterpretation of CBC data. Current Interpretive Data was last revised on 2018. Testing performed by: [address] [address] Eosinophil pct 0.8 % [facility] Comment: Interpretive Data Percent cell count reference ranges are not reported, since discordance with absolute values may lead to misinterpretation of CBC data. Current Interpretive Data was last revised on 2018. Testing performed by: [address] [address] Basophil pct 0.2 % [facility] Comment: Interpretive Data Percent cell count reference ranges are not reported, since discordance with absolute values may lead to misinterpretation of CBC data. Current Interpretive Data was last revised on 2018. Testing performed by: [address] [address] Blood 01/19/2025 10:5 5 AM DRAPERY CUTTER MACHINE 01/19/2025 11:09 AM DRAPERY CUTTER MACHINE us Jean Trujillo DO LAB BLOOD ORDERABLES Final R esult [facility] [address] [facility] [place] [address] * (ABNORMAL) CBC with auto differential (01/19/2025 10:55 AM DRAPERY CUTTER MACHINE) [facility] WBC 6.0 3.8 - 9.9 K/cumm Comment:Testing performed by : [address], [address] Hgb 12.0 11.9 - 15.5 g/dL [facility] Comment:Testing performed by : [address], [address] Hct 35.2(L) 35.6 - 45.5 % [facility] Comment:Testing performed by : [address], [address] Plt 227 150 - 400 K/cumm [facility] Comment:Testing performed by : [address], [address] MPV 10.1 9.1 - 12.3 fL [facility] Comment:Testing performed by : [address], [address] RBC 3.91 3.90 - 5.20 M/cumm [facility] Comment:Testing performed by : [address], [address] MCV 90.0 81.3 - 96.4 fL [facility] Comment:Testing performed by : [address], [address] MCH 30.7 27.1 - 33.3 pg [facility] Comment:Testing performed by : [address], [address] MCHC 34.1 32.3 - 35.7 g/dL [facility] Comment:Testing performed by : [address], [address] RDW CV 18.9(H) 11.1 - 14.9 % [facility] Comment:Testing performed by : [address], [address] RDW SD 55.0(H) 35.7 - 48.1 fL [facility] Comment:Testing performed by : [address], [address] NRBC abs 0.00 0.00 - 0.01 K/cumm [facility] Comment:Testing performed by : [address] [address] Blood 01/19/2025 10:5 5 AM DRAPERY CUTTER MACHINE 01/19/2025 11:09 AM DRAPERY CUTTER MACHINE Jean Trujillo DO LAB BLOOD ORDERABLES Final R esult Performing Organization Address City/[facility] Co de Phone Number [facility] [address] [place] [address] * Magnesium (01/19/2025 10:55 AM DRAPERY CUTTER MACHINE) Pathologist [facility] Magnesium 2.0 1.4 - 2.5 mg/dL Comment:Testing performed by : [address] [address] Blood 01/19/2025 10:5 5 AM DRAPERY CUTTER MACHINE 01/19/2025 11:09 AM DRAPERY CUTTER MACHINE Jean Trujillo DO LAB BLOOD ORDERABLES Final R esult Performing Organization Address [facility] Co de Phone Number [address] [address] * Comprehensive metabolic panel (01/19/2025 10:55 AM DRAPERY CUTTER MACHINE) Pathologist [facility] Sodium 139 135 - 145 mmol/L Comment:Testing performed by : [address] [address] Potassium, pl 3.6 3.3 - 4.9 mmol/L [facility] Comment:Testing performed by : [address] [address] Chloride 102 97 - 110 mmol/L [facility] Comment:Testing performed by : [address] [address] CO2 24 22 - 32 mmol/L [facility] Comment:Testing performed by : [address] [address] Anion gap 13 2 - 15 mmol/L [facility] Comment:Testing performed by : [address] [address] BUN 11 6 - 25 mg/dL [facility] Comment:Testing performed by : [address] [address] Creatinine 0.90 0.60 - 1.10 mg/dL [facility] Comment:Testing performed by : [address] [address] Glucose 104 70 - 199 mg/dL [facility] Comment: Interpretive Data Fasting glucose >/= 126 mg/dl is diagnostic for diabetes. Fasting is defined as no caloric intake for at least 8 hours. Fasting glucose between 100 mg/dl to 125 mg/dl is diagnostic of prediabetes. In a patient with classic symptoms of hyperglycemia or hyperglycemic crisis, a random glucose >/= 200 mg/dl is diagnostic for diabetes. In the absence of unequivocal hyperglycemia, results should be confirmed by repeat testing. The classification and Diagnosis of Diabetes Diabetes Care 2021; 46: S19-S40. Current interpretive data was last revised 2022. Testing performed by: [address] [address] Calcium 9.6 8.5 - 10.3 mg/dL [facility] Comment:Testing performed by : [address] [address] Bilirubin, total 0.9 0.1 - 1.2 mg/dL [facility] Comment:Testing performed by : [address] [address] Protein, pl 6.8 6.5 - 8.5 g/dL [facility] Comment:Testing performed by : [address] [address] Albumin 3.8 3.5 - 5.0 g/dL [facility] Comment:Testing performed by : [address] [address] Alk phos 77 40 - 130 Units/L [facility] Comment:Testing performed by : [address] [address] ALT 7 7 - 45 Units/L [facility] Comment:Testing performed by : [address] [address] AST 17 10 - 45 Units/L [facility] Comment:Testing performed by : [facility], [address] [place]., [address] Blood 01/19/2025 10:5 5 AM DRAPERY CUTTER MACHINE 01/19/2025 11:09 AM DRAPERY CUTTER MACHINE Jean LovellVance Trujillo DO LAB BLOOD ORDERABLES Final R esult [facility] [address] [facility] [place] [address] * (ABNORMAL) eGFR (01/01/2025 10:19 AM DRAPERY CUTTER MACHINE) eGFR 57(L) >=60 mL/min/1. 73 m2 Comment: Interpretive Data Reference Interval Normal >/= 90 mL/min/1.73m2 Mildly decreased* 60 - 89 mL/min/1.73m2 Mildly to moderately decreased 45 - 59 mL/min/1.73m2 Moderately to severely decreased 30 - 44 mL/min/1.73m2 Severely decreased 15 - 29 mL/min/1.73m2 Kidney Failure < 15 mL/min/1.73m2 *Relative to young adult level Estimated glomerular filtration rate is determined by the 2020 CKD-EPI equation recommended by the National Kidney Foundation (A Unifying Approach to GFR Estimation: Recommendations of the NKF-ASK Task Force on Reassessing the Inclusion of Race in Diagnosing Kidney Disease, JASN 2020). The CKD-EPI equation should not be used for patients with unstable renal function and has not been validated in children and those over 70. Current interpretive data was last reviewed 2021. Blood 01/01/2025 10:1 9 AM DRAPERY CUTTER MACHINE 01/01/2025 3:48 PM DRAPERY CUTTER MACHINE Jean Td Cassandra DO LAB BLOOD ORDERABLES Final R esult [facility] [address] Department [place] [address] * Differential, auto (01/01/2025 10:19 AM DRAPERY CUTTER MACHINE) Neutrophil abs 3.9 1.5 - 6.5 K/cumm Imm gran abs 0.0 0.0 - 0.1 K/cumm [facility] Lymphocyte abs 1.1 0.8 - 3.3 K/cumm [facility] Monocyte abs 0.7 0.2 - 0.8 K/cumm [facility] Eosinophil abs 0.1 0.0 - 0.5 K/cumm [facility] Basophil abs 0.0 0.0 - 0.1 K/cumm [facility] Neutrophil pct 67.2 % [facility] Comment: Interpretive Data Percent cell count reference ranges are not reported, since discordance with absolute values may lead to misinterpretation of CBC data. Current Interpretive Data was last revised on 2018. Imm gran pct 0.3 % [facility] Comment: Interpretive Data Percent cell count reference ranges are not reported, since discordance with absolute values may lead to misinterpretation of CBC data. Current Interpretive Data was last revised on 2018. Lymphocyte pct 19.4 % [facility] Comment: Interpretive Data Percent cell count reference ranges are not reported, since discordance with absolute values may lead to misinterpretation of CBC data. Current Interpretive Data was last revised on 2018. Monocyte pct 11.9 % [facility] Comment: Interpretive Data Percent cell count reference ranges are not reported, since discordance with absolute values may lead to misinterpretation of CBC data. Current Interpretive Data was last revised on 2018. Eosinophil pct 0.9 % [facility] Comment: Interpretive Data Percent cell count reference ranges are not reported, since discordance with absolute values may lead to misinterpretation of CBC data. Current Interpretive Data was last revised on 2018. Basophil pct 0.3 % [facility] Comment: Interpretive Data Percent cell count reference ranges are not reported, since discordance with absolute values may lead to misinterpretation of CBC data. Current Interpretive Data was last revised on 2018. Blood 01/01/2025 10:1 9 AM DRAPERY CUTTER MACHINE 01/01/2025 3:31 PM DRAPERY CUTTER MACHINE Jean Trujillo DO LAB BLOOD ORDERABLES Final R esult Performing Organization Address [facility] Co de Phone Number SAVITA CHINCHILLA [address] Department of Laboratories [place], [place] [phone] * (ABNORMAL) CBC with auto differential (01/01/2025 10:19 AM DRAPERY CUTTER MACHINE) Pathologist [facility] WBC 5.8 3.8 - 9.9 K/cumm Hgb 13.0 11.9 - 15.5 g/dL [facility] Hct 40.4 35.6 - 45.5 % [facility] Plt 270 150 - 400 K/cumm [facility] MPV 10.5 9.1 - 12.3 fL [facility] RBC 4.12 3.90 - 5.20 M/cumm [facility] MCV 98.1(H) 81.3 - 96.4 fL [facility] MCH 31.6 27.1 - 33.3 pg [facility] MCHC 32.2(L) 32.3 - 35.7 g/dL [facility] RDW CV 18.1(H) 11.1 - 14.9 % [facility] RDW SD 53.9(H) 35.7 - 48.1 fL [facility] NRBC abs 0.00 0.00 - 0.01 K/cumm [facility] Blood 01/01/2025 10:1 9 AM DRAPERY CUTTER MACHINE 01/01/2025 3:31 PM DRAPERY CUTTER MACHINE Jean Trujillo DO LAB BLOOD ORDERABLES Final R [facility] Performing Organization Address [facility] Co de Phone Number SAVITA CHINCHILLA [address] Department [place] [address] * (ABNORMAL) Comprehensive metabolic panel (01/01/2025 10:19 AM DRAPERY CUTTER MACHINE) Pathologist [facility] Sodium 139 135 - 145 mmol/L Potassium, pl 3.0(L) 3.3 - 4.9 mmol/L [facility] Chloride 99 97 - 110 mmol/L [facility] CO2 25 22 - 32 mmol/L [facility] Anion gap 15 2 - 15 mmol/L [facility] BUN 10 6 - 25 mg/dL [facility] Creatinine 1.01 0.60 - 1.10 mg/dL [facility] Glucose 107 70 - 199 mg/dL [facility] Comment: Interpretive Data Fasting glucose >/= 126 mg/dl is diagnostic for diabetes. Fasting is defined as no caloric intake for at least 8 hours. Fasting glucose between 100 mg/dl to 125 mg/dl is diagnostic of prediabetes. In a patient with classic symptoms of hyperglycemia or hyperglycemic crisis, a random glucose >/= 200 mg/dl is diagnostic for diabetes. In the absence of unequivocal hyperglycemia, results should be confirmed by repeat testing. The classification and Diagnosis of Diabetes Diabetes Care 2021; 46: S19-S40. Current interpretive data was last revised 2022. Calcium 9.6 8.5 - 10.3 mg/dL [facility] Bilirubin, total 0.7 0.1 - 1.2 mg/dL [facility] Protein, pl 7.0 6.5 - 8.5 g/dL [facility] Albumin 4.0 3.5 - 5.0 g/dL [facility] Alk phos 69 40 - 130 Units/L [facility] ALT 9 7 - 45 Units/L [facility] AST 29 10 - 45 Units/L [facility] Blood 01/01/2025 10:1 9 AM DRAPERY CUTTER MACHINE 01/01/2025 3:31 PM DRAPERY CUTTER MACHINE us Jean Trujillo DO LAB BLOOD ORDERABLES Final R esult [facility] [address] Department [place] [address] * [facility] xT DNA and RNA - Tumor Only (12/01/2024 10:35 AM DRAPERY CUTTER MACHINE) Reason for Study To identify somatic and germline mutations relevant to patient's cancer. 12/23/2024 6:14 PM DRAPERY CUTTER MACHINE [facility] Genetic Diseases Assessed Cancer 12/23/2024 6:14 PM DRAPERY CUTTER MACHINE [facility] Description of Ranges of DNA Sequences Examined 648 gene panel 12/23/2024 6:14 PM DRAPERY CUTTER MACHINE [facility] Overall Interpretation positive 12/23/2024 6:14 PM DRAPERY CUTTER MACHINE [facility] MSI Stable 12/23/2024 6:14 PM DRAPERY CUTTER MACHINE [facility] TMB 6.3 m/MB 12/23/2024 6:14 PM DRAPERY CUTTER MACHINE [facility] Portal [email or web address] 12/23/2024 6:14 PM DRAPERY CUTTER MACHINE [facility] Comment:[facility] link MMR Overall Result normal 12/23/2024 6:14 PM DRAPERY CUTTER MACHINE [facility] MLH1 Presence or Absence present 12/23/2024 6:14 PM DRAPERY CUTTER MACHINE [facility] PMS2 Presence or Absence present 12/23/2024 6:14 PM DRAPERY CUTTER MACHINE [facility] MSH2 Presence or Absence present 12/23/2024 6:14 PM DRAPERY CUTTER MACHINE [facility] MSH6 Presence or Absence present 12/23/2024 6:14 PM DRAPERY CUTTER MACHINE [facility] PD-L1 Interpretation by 22C3 negative 12/23/2024 6:14 PM DRAPERY CUTTER MACHINE [facility] PD-L1 (22C3) Combined Positive Score 5 12/23/2024 6:14 PM DRAPERY CUTTER MACHINE [facility] PD-L1 (22C3) Tumor Proportion Score 3 % 12/23/2024 6:14 PM DRAPERY CUTTER MACHINE [facility] Pertinent Negatives ERBB2 (HER2), ESR1, PIK3CA 12/23/2024 6:14 PM DRAPERY CUTTER MACHINE [facility] Low Coverage Regions EPHB2, KDM5D, RXRA, TGFBR1 12/23/2024 6:14 PM DRAPERY CUTTER MACHINE [facility] Therapy Count 1 12/23/2024 6:14 PM DRAPERY CUTTER MACHINE [facility]us: Potential Therapy 1 Gene: 9588^PTEN^HGNC Variant: p.I203fs Match Type: snvIndel Match Type Description: PTEN p.I203fs Agent: Capivasertib + Fulvestrant Drug Class: Combination (Addison-AKT Inhibitor + Estrogen Receptor Antagonist) Tissue: Breast Cancer Association: Response Evidence Status: Consensus Evidence ID: NCCN [id number] Variant: [id number] Label: FDA Off Label FDA Approved?: Yes On label?: No 12/23/2024 6:14 PM DRAPERY CUTTER MACHINE [facility] Trial Count 3 12/23/2024 6:14 PM DRAPERY CUTTER MACHINE [facility]: Clinical Trial Match 1 Clinical Trial NCT ID: [id number] Clinical Trial Title: Pemetrexed Response in Relation to Tumor Alterations of Gene Status for the Treatment of Patients With Metastatic Urothelial Bladder Cancer and Other Solid Tumors Clinical Trial URL: [email or web address] Clinical Phase: Phase 2 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 Clinical Trial Distance and Location: [address], [place], [place] 12/23/2024 6:14 PM DRAPERY CUTTER MACHINE [facility]: Clinical Trial Match 2 Clinical Trial NCT ID: [id number] Clinical Trial Title: [id number] With or Without Bevacizumab and Paclitaxel for the Treatment of Advanced Solid Tumors Clinical Trial URL: [email or web address] Clinical Phase: Phase 1 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 Clinical Trial Distance and Location: [address], [place], [place] 12/23/2024 6:14 PM DRAPERY CUTTER MACHINE [facility]: Clinical Trial Match 3 Clinical Trial NCT ID: [id number] Clinical Trial Title: Study of the CDK4/6 Inhibitor Palbociclib ([id number]) in Combination With the PI3K/mTOR Inhibitor Gedatolisib ([id number]) for Patients With Advanced Squamous Cell Lung, Pancreatic, Head & Neck and Other Solid Tumors Clinical Trial URL: [id number] Clinical Phase: Phase 1 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 Clinical Trial Distance and Location: [address], [place], [place] 12/23/2024 6:14 PM DRAPERY CUTTER MACHINE [facility] xR Result 1 NEGATIVE Negative - This report is being issued to report the results of gene rearrangement and altered splicing analysis from RNA sequencing. No gene rearrangements nor reportable altered splicing events were identified from RNA sequencing. 12/23/2024 6:14 PM DRAPERY CUTTER MACHINE [facility] Germline Variant Note No normal sample was received, therefore tumor/normal matched analysis was not performed. 12/23/2024 6:14 PM DRAPERY CUTTER MACHINE [facility] HLA-A Typing A*02:01,A*29:02 025 6:14 PM DRAPERY CUTTER MACHINE [facility] HLA-B Typing B*51:01,B*51:01 025 6:14 PM DRAPERY CUTTER MACHINE [facility] HLA-C Typing C*01:02,C*14:02 025 6:14 PM DRAPERY CUTTER MACHINE [facility] HLA-A Ambiguous Alleles Yes 12/23/2024 6:14 PM DRAPERY CUTTER MACHINE [facility] HLA-B Ambiguous Alleles Yes 12/23/2024 6:14 PM DRAPERY CUTTER MACHINE [facility] HLA-C Ambiguous Alleles Yes 12/23/2024 6:14 PM DRAPERY CUTTER MACHINE [facility] HLA-A Sample Type Tumor Only 025 6:14 PM DRAPERY CUTTER MACHINE [facility] HLA-B Sample Type Tumor Only 025 6:14 PM DRAPERY CUTTER MACHINE [facility] HLA-C Sample Type Tumor Only 025 6:14 PM DRAPERY CUTTER MACHINE [facility] Tissue 12/01/2024 10:3 5 AM DRAPERY CUTTER MACHINE 12/08/2024 2:27 PM DRAPERY CUTTER MACHINE Narrative This result has genomic variants that were not included in this document. Jean Trujillo DO LAB GENETIC TESTING Final Re sult [facility] [address] [facility], [address] [phone] [facility] [address] [facility], [address] [place] [address] * XR Chest 1 Vw - Portable (11/21/2024 12:15 PM DRAPERY CUTTER MACHINE) Anatomical Region Laterality Modality Body, Chest N/A Computed Radiogr aphy 11/21/2024 12:1 8 PM DRAPERY CUTTER MACHINE Narrative 11/21/2024 12:30 PM DRAPERY CUTTER MACHINE EXAM DESCRIPTION: XR CHEST 1 VIEW . REASON FOR STUDY: s/p right lung lesion biopsy for dr. sanchez TECHNIQUE: Single anteroposterior image of the thorax. COMPARISON: None. FINDINGS: No discernible right pneumothorax status post right lung lesion biopsy. IMPRESSION: No discernible right pneumothorax. Patient is in good spirits and talking with her . Vital signs are stable and she is without pain and is not short of breath. THIS IS AN ELECTRONICALLY VERIFIED FINAL REPORT 11/21/2024 12:30 PM - Electronically signed by Hussain Sanchez M.D. SN T: Report ID: [id number] Reading Location: [id number] Procedure Note Hussain Sanchez MD - 11/21/2024 EXAM DESCRIPTION: XR CHEST 1 VIEW . REASON FOR STUDY: s/p right lung lesion biopsy for dr. sanchez TECHNIQUE: Single anteroposterior image of the thorax. COMPARISON: None. FINDINGS: No discernible right pneumothorax status post right lung lesion biopsy. IMPRESSION: No discernible right pneumothorax. Patient is in good spiritsand talking with her . Vital signs are stable and she is without painand is not short of breath. THIS IS AN ELECTRONICALLY VERIFIED FINAL REPORT 11/21/2024 12:30 PM - Electronically signed by Hussain Sanchez M.D. SN T: Report ID: [id number] Reading Location: [id number] Hussain Sanchez MD IMG XR PROCEDURES Final Result * CT Lung Needle Biopsy Right (11/21/2024 10:54 AM DRAPERY CUTTER MACHINE) Anatomical Region Laterality Modality Lung N/A Computed Tomogra phy, Computed Radiography 11/21/2024 11:0 6 AM DRAPERY CUTTER MACHINE Narrative 11/21/2024 11:07 AM DRAPERY CUTTER MACHINE EXAM DESCRIPTION: CT NEEDLE BIOPSY LUNG RIGHT HISTORY: Right lung lesion. PROCEDURE: The alternatives to, the benefits of and the risks of the procedure were discussed with the patient and the patient's including and specifically the risk of pneumothorax and informed written consent was obtained. The patient was placed in a left lateral decubitus position and the skin was prepped and draped in the usual sterile fashion. Local anesthesia was achieved with 2 cc of 1% lidocaine. Under computed tomographic guidance, an 18 gauge coaxial biopsy device was inserted into the lesion of interest and 3 core biopsy specimens were obtained and submitted to the pathologist for review. The patient tolerated the procedure well. There were no immediate complications. Conscious sedation was administered using 0.5 mg of Versed and 12.5 mcg of fentanyl while a dedicated nurse continuously monitored the patient and the patient's vital signs including oxygen saturation for 30 minutes. Computed tomographic imaging was obtained using dose optimization techniques as appropriate for this procedure in accordance with computed tomographic guided procedure protocols. IMPRESSION: Successful computed tomographic guided right lung lesion biopsy. THIS IS AN ELECTRONICALLY VERIFIED FINAL REPORT 11/21/2024 11:07 AM - Electronically signed by Hussain Sanchez M.D. SN T: Report ID: [id number] Reading Location: [id number] Procedure Note Hussain Sanchez MD - 11/21/2024 EXAM DESCRIPTION: CT NEEDLE BIOPSY LUNG RIGHT HISTORY: Right lung lesion. PROCEDURE: The alternatives to, the benefits of and the risks of theprocedure were discussed with the patient and the patient's including and specifically the risk of pneumothorax and informed written consent was obtained. The patient was placed in a left lateral decubitus position andthe skin was prepped and draped in the usual sterile fashion. Localanesthesia was achieved with 2 cc of 1% lidocaine. Under computed tomographicguidance, an 18 gauge coaxial biopsy device was inserted into the lesion of interestand 3 core biopsy specimens were obtained and submitted to the pathologist for review. The patient tolerated the procedure well. There were noimmediate complications. Conscious sedation was administered using 0.5 mg of Versed and 12.5 mcg of fentanyl while a dedicated nurse continuously monitored the patient andthe patient's vital signs including oxygen saturation for 30 minutes. Computed tomographic imaging was obtained using dose optimizationtechniques as appropriate for this procedure in accordance with computed tomographic guided procedure protocols. IMPRESSION: Successful computed tomographic guided right lung lesionbiopsy. THIS IS AN ELECTRONICALLY VERIFIED FINAL REPORT 11/21/2024 11:07 AM - Electronically signed by Hussain Sanchez M.D. SN T: Report ID: [id number] Reading Location: [id number] Jean Trujillo DO IMG CT PROCEDURES Final Resu lt * Surgical pathology (11/21/2024 10:16 AM DRAPERY CUTTER MACHINE) Tissue (Lung Biopsy) 11/21/2024 10:16 AM DRAPERY CUTTER MACHINE Narrative PATHOLOGY [facility] - 11/30/2024 3:58 PM DRAPERY CUTTER MACHINE [facility] Department of Pathology [address] [place] [id number] Note to Patients: This report may contain a detailed description of human tissue sent by a health care provider to the laboratory for pathologic evaluation. The content of this report is essential for diagnosis and may provide important critical findings. This information may be unfamiliar to patients to review without a medical professional present. It is advised that the patient review this report in the presence of a health care provider who can answer questions and explain the details. Final Report with Addendum Patient Name: MARY BARAHONA : 1945 (Age: 79) Gender: F Address: [address] [place] [address] Hospital #: [id number] Service: DEFAULT Location: Patient Type: [facility] ANCILLARY Taken: 11/21/2024 Received: 11/21/2024 Accessioned: 11/21/2024 Reported: 11/30/2024 Physician(s): Yonis Pena Dr., D.O. Laura S. Bird, M.D. Diagnosis: Lung, right lower lobe, biopsy - Metastatic carcinoma, consistent with breast primary Synoptic Diagnosis: BREAST BIOMARKER RESULTS ESTROGEN RECEPTOR: Negative Jossie Score: Proportion 0/5 Intensity 0/3 Total Score 0/8 PROGESTERONE RECEPTOR: Negative Jossie Score: Proportion 1/5 Intensity 1/3 Total Score 2/8 HER-2: Negative (score 0 by IHC) TUMOR HISTOLOGIC TYPE: Metastatic carcinoma HISTOLOGICAL GRADE BY ESBR CRITERIA: N/A (for DCIS or metastatic carcinoma) Technical Notes Estrogen receptor (ER), progesterone receptor (SC), and HER2 were evaluated by immunohistochemistry (IHC) by morphometric analysis in routine formalin-fixed paraffin-embedded tissue using a proprietary polymer- based detection system and instrumentation by [employer] per loan examiner's recommendation. The IHC results for ER (antibody SP1) and SC (antibody 1E2) were quantified and interpreted (positive vs negative) using the Jossie score (total score range = 0 to 8; positive >2) (see: Mod Pathol 11:155, 1998; J Clin Oncol 17:1474, 1998; Mod Pathol 17:1545, 2004; Arch Pathol Lab Med 144:545, 2020). Pathway Her2 is a trademark of [employer] The IHC results for Pathway Her2 (antibody 4B5 rabbit monoclonal antibody) were scored in compliance with the ASCO/CAP guidelines (see: J Clin Oncol 25:118, 2007; Arch Pathol Lab Med 131:18, 2007, Arch Pathol Lab Med 142:1364, 2018). Jossie score for estrogen and progesterone receptor evaluation: The Jossie score combines the percentage of positive cells [proportion score: 0 (0%), 1 (<1%), 2 (1-10%), 3 (11- 33%), 4 (34-66%), 5 (>67%)] and the intensity of the reaction product (intensity score: 0-3). The two scores are added together for a final score. A combined score of >2 is considered positive. Her2 Interpretation guide Score 0: No membrane staining is observed, or immunoreactivity in <=10% of tumor cells; score 1+: incomplete membrane staning that is faint/barely perceptible and within >10% of tumor cells; score 2+: circumferential membrane staining that is incomplete and/or weak/moderate and within >10% of tumor cells, or complete and circumferential membrane staining that is intense and within <=10% of tumor cells; score 3+: intense and uniform circumferential membrane staining in >10% of tumor cells. A strong membranous (chicken-wire) pattern should be present. Ki-67 Technical Note and Interpretation: Testing for Ki-67 is performed at the request of the clinical teams. Ki-67 was evaluated by immunohistochemistry (IHC) in routine formalin-fixed paraffin-embedded tissue using rabbit monoclonal antibody to Ki-67 (clone 30-9)and a proprietary polymer-based detection system andinstrumentation by [employer] per loan examiner's recommendation. The index was determined by manual morphometric analysis of at least 3 high power lee and calculating the proportion of tumor cells with positive nuclear staining. Control expression, sample adequacy, and uniformity of staining were all assessed. For uniform staining the index is determined by 3 randomly selected high power lee and calculating the proportion of tumor cells with positive nuclear staining. For non-uniform staining, the average across the stained specimen is reported (see: J Natl Cancer Inst 103:1656, 2011). Given the absence of inter-laboratory standardization for this assay, proliferation indices must be interpreted with caution and no prognostic thresholds can be provided. Published thresholds may or may not be relevant to the reported results and findings should be interpreted in conjunction with allother relevant clinical and pathological data. Cyndi Kumari MD PhD Report Electronically Reviewed and Signed Out By Cyndi Kumari MD PhD 11/30/2024 15:58:22 Addenda: Archive Tissue Molecular Test Addendum Comment A request for Molecular Archived Tissue Testing was received, which is to be performed on tissue from the attached case. The report, slides and blocks for the case were retrieved from archives. The pathologist whose signature appears below reviewed the original pathology report, examined H&E slides, and selected the blocks appropriate to the specifications of the ordered molecular analysis. Materials were forwarded to [facility] where the PD-L1, MMR test will be performed. An addendum report will be issued when the results of this molecular test are available. Addendum - 1 Addendum Comment Testing for 648 Gene Panel was requested by Jean Trujillo Returned results Block A1 was selected, and sent for testing reference lab below. A Digital scan of the original reference lab report will begin on page two of this addendum Addendum - 1 Addendum Comment Testing for PD-L1 was requested by Dr. Jean Trujillo. Block A1 was selected, and sent for testing reference lab below. A Digital scan of the original reference lab report will begin on page two of this addendum Addendum - 1 Addendum Comment Testing for DNA Mismatch Repair Panel was requested by Jean Trujillo. Block A1 was selected, and sent for testing reference lab below. A Digital scan of the original reference lab report will begin on page two of this addendum. Specimen(s) Received: A: Right lower lobe lung mass core tissue sample Intraoperative Diagnosis: Rapid On-Site Evaluation A. Right lower lobe lung, core biopsy touch prep Evaluation Episode #1: Adequate (lesional cells present) Preliminary Diagnosis if Provided: N/a Total Evaluation Episodes: 1 Dr. Iam Diez 11/21/2024 at 10:45 AM Iam Diez DO Microscopic Description: I have reviewed the touch prep slides and concur. A limited panel of immunohistochemistry stains was performed with proper controls (single antibody procedures). The lesional cells are positive for CK7 and TRPS1; they are negative for GATA3, TTF1 and synaptophysin. The findings are consistent with metastatic breast cancer. The biomarkers are reported in the synoptic table. I have reviewed the touch prep slides and concur. A limited panel of immunohistochemistry stains was performed with proper controls (single antibody procedures). The lesional cells are positive for CK7 and TRPS1; they are negative for GATA3, TTF1 and synaptophysin. The findings are consistent with metastatic breast cancer. The biomarkers are reported in the synoptic table. Clinical History: The patient is a 79-year-old woman with a malignant neoplasm of the right breast and a pleural mass. Operative procedure: CT-guided right lower lobe lung mass biopsy. Gross Description Received in formalin, labeled with the patient s identifiers and 1 and consists of three brewer-red, friable tissue cores each measuring 0.1 cm in diameter, and ranging from 1.0-1.4 cm in length. Entirely submitted. Total formalin fixation time = 7.75 hours. Cold ischemic time = 5 minutes. Labeled A1 to A2. Jar 0. jjmhb/11/21/2024 11:34 ESTEFANI Raymundo, PA ([facility] Microscopic slide review and interpretation for this case was performed at [facility], Department of Surgical Pathology, [address] [facility] [id number], [place] [address] CLIA # [id number] us Jean Trujillo DO LAB PATHOLOGY ORDERABLES Fin al Result PATHOLOGY [facility] * Differential, auto (11/21/2024 8:13 AM DRAPERY CUTTER MACHINE) Neutrophil abs 3.8 1.5 - 6.5 K/cumm Imm gran abs 0.0 0.0 - 0.1 K/cumm [facility] Lymphocyte abs 1.3 0.8 - 3.3 K/cumm [facility] Monocyte abs 0.6 0.2 - 0.8 K/cumm [facility] Eosinophil abs 0.1 0.0 - 0.5 K/cumm [facility] Basophil abs 0.0 0.0 - 0.1 K/cumm [facility] Neutrophil pct 65.0 % [facility] Comment: Interpretive Data Percent cell count reference ranges are not reported, since discordance with absolute values may lead to misinterpretation of CBC data. Current Interpretive Data was last revised on 2018. Imm gran pct 0.3 % [facility] Comment: Interpretive Data Percent cell count reference ranges are not reported, since discordance with absolute values may lead to misinterpretation of CBC data. Current Interpretive Data was last revised on 2018. Lymphocyte pct 22.8 % [facility] Comment: Interpretive Data Percent cell count reference ranges are not reported, since discordance with absolute values may lead to misinterpretation of CBC data. Current Interpretive Data was last revised on 2018. Monocyte pct 9.7 % [facility] Comment: Interpretive Data Percent cell count reference ranges are not reported, since discordance with absolute values may lead to misinterpretation of CBC data. Current Interpretive Data was last revised on 2018. Eosinophil pct 1.7 % [facility] Comment: Interpretive Data Percent cell count reference ranges are not reported, since discordance with absolute values may lead to misinterpretation of CBC data. Current Interpretive Data was last revised on 2018. Basophil pct 0.5 % [facility] Comment: Interpretive Data Percent cell count reference ranges are not reported, since discordance with absolute values may lead to misinterpretation of CBC data. Current Interpretive Data was last revised on 2018. Blood 11/21/2024 8:13 AM DRAPERY CUTTER MACHINE 11/21/2024 8:17 AM DRAPERY CUTTER MACHINE us Jean Trujillo DO LAB BLOOD ORDERABLES Final R esult SAVITA GOMEZ [address] [facility] [place] [address] * (ABNORMAL) CBC with auto differential (11/21/2024 8:13 AM DRAPERY CUTTER MACHINE) WBC 5.8 3.8 - 9.9 K/cumm Hgb 11.3(L) 11.9 - 15.5 g/dL [facility] Hct 35.5(L) 35.6 - 45.5 % [facility] Plt 265 150 - 400 K/cumm [facility] MPV 10.0 9.1 - 12.3 fL [facility] RBC 3.80(L) 3.90 - 5.20 M/cumm [facility] MCV 93.4 81.3 - 96.4 fL [facility] MCH 29.7 27.1 - 33.3 pg [facility] MCHC 31.8(L) 32.3 - 35.7 g/dL [facility] RDW CV 15.9(H) 11.1 - 14.9 % [facility] RDW SD 53.2(H) 35.7 - 48.1 fL [facility] NRBC abs 0.00 0.00 - 0.01 K/cumm [facility] Blood 11/21/2024 8:13 AM DRAPERY CUTTER MACHINE 11/21/2024 8:17 AM DRAPERY CUTTER MACHINE Narrative [facility] - 11/21/2024 8:22 AM DRAPERY CUTTER MACHINE Dx codes Z76.89, Z01.818 Jean Trujillo [email or web address] LAB BLOOD ORDERABLES Final R Floodlight Performing Organization Address [facility] de Phone Number SAVITA [address] [facility] [place] [address] * aPTT (11/21/2024 8:13 AM DRAPERY CUTTER MACHINE) Pathologist [facility] aPTT 25 22 - 37 sec Comment: Interpretive data aPTT test has not been evaluated for monitoring heparin therapy. The anti-Xa is the preferred test. Current interpretive data was last revised on 2019. Blood 11/21/2024 8:13 AM DRAPERY CUTTER MACHINE 11/21/2024 8:17 AM DRAPERY CUTTER MACHINE Jean Trujillo [email or web address] LAB BLOOD ORDERABLES Final R esult Performing Organization Address City/[facility]/ZIP Co de Phone Number SAVITA [address] [facility] [place] [address] * Protime-INR (11/21/2024 8:13 AM DRAPERY CUTTER MACHINE) PT 13.2 12.0 - 14.6 sec INR 1.0 0.9 - 1.2 SAVITA GOMEZ Comment: Ref Range High Interpretive data Oral anticoagulant therapeutic ranges: Venous thromboembolism prophylaxis or treatment: 2.0-3.0 CARDIOLOGY Standard range: 2.0-3.0 High-intensity range: 2.5-3.5 Refer to indication-specific guidelines for appropriate target ranges for prosthetic heart valve replacement. Current interpretive data was last revised on 2019. Blood 11/21/2024 8:13 AM DRAPERY CUTTER MACHINE 11/21/2024 8:17 AM DRAPERY CUTTER MACHINE Jean Trujillo DO LAB BLOOD ORDERABLES Final R esult Performing Organization Address City/State/[facility] Co de Phone Number SAVITA [address] [facility] [place] [address] * PET/CT FDG Skull to Thigh (11/10/2024 1:35 PM DRAPERY CUTTER MACHINE) Anatomical Region Laterality Modality N/A Positron Emissio n Tomography (PET) 11/10/2024 4:50 PM DRAPERY CUTTER MACHINE Narrative 11/12/2024 1:01 PM DRAPERY CUTTER MACHINE EXAM DESCRIPTION: PET/CT FDG SKULL TO THIGH RADIOPHARMACEUTICAL: 9.9 mCi F-18 Fluorodeoxyglucose (FDG) via a left antecubital vein IV site REASON FOR STUDY: Right breast cancer follow-up. Last reported chemotherapy 06/21/2024. TECHNIQUE: The patient's fasting blood glucose level, measured by glucometer before injection of FDG, was 97 mg/dL. After intravenous administration of FDG, noncontrast CT images were obtained for attenuation correction and for fusion with emission PET images to allow for anatomical localization of PET findings. Emission PET images were then obtained. The reported standardized uptake value maximum (SUVmax) values have been normalized to body weight (SUVbw). The area imaged spanned the region from the skull base to the proximal thighs . The time from injection of FDG to start of imaging was 60 minutes. COMPARISON: PET-CT 04/04/2024 FINDINGS: For reference, the maximum SUV of the ascending thoracic aorta is 2.7 . The maximum SUV of the liver is 3.6 . Head: Normal FDG uptake is seen in the included portion of the brain. Neck: Physiologic uptake is present in the paired lymphoid structures. No hypermetabolic lymphadenopathy. Diffuse uptake throughout the thyroid. Correlation with thyroid function tests recommended. Chest: New hypermetabolic mediastinal and bilateral hilar hypermetabolic lymphadenopathy. The subcarinal lymph node conglomerate measuring 4.4 x 2.4 cm has an SUV of 18.3. Necrotic appearing lymph node in the right hilar region. An AP window lymph node measuring 2.4 x 1.6 cm has an SUV of 15.8. Bilateral hypermetabolic pleural nodularity with an SUV of 15.7 on the left and 18.9 on the right. The pleural-based nodule on the right measures 2.3 x 1.6 cm. This is new from the prior PET-CT. Subcentimeter noncalcified nodule in the lateral right upper lobe shows low level uptake, suspicious. There are other scattered noncalcified pulmonary nodules showing mild uptake, suspicious. Heart size is enlarged. No significant coronary artery calcification. No significant pericardial effusion. Trace right and small left pleural effusions. Left chest port tip terminates in the mid SVC. Prior right mastectomy. Abdomen and Pelvis: Low-attenuation subcentimeter lesion in the inferior right hepatic lobe is unchanged and shows no focal FDG uptake likely representing a cyst or hemangioma. Prior cholecystectomy. The spleen is normal. Normal pancreas without focal FDG activity. No focal hypermetabolic adrenal lesion. Photopenic cyst in the interpolar left kidney requires no specific follow-up. No hydronephrosis. Normal gastrointestinal activity is seen. No hypermetabolic lymph nodes in the abdomen or pelvis. Bones: Postsurgical change in the lower cervical spine. No suspicious hypermetabolic osseous lesions. IMPRESSION: New hypermetabolic mediastinal and bilateral hilar lymphadenopathy is most consistent with metastatic disease. Bilateral hypermetabolic pleural nodularity is most consistent with metastatic disease. Scattered noncalcified pulmonary nodules show mild uptake, suspicious for metastatic disease. Trace right and small left pleural effusions. Diffuse uptake throughout the thyroid. Correlation with thyroid function tests recommended. THIS IS AN ELECTRONICALLY VERIFIED FINAL REPORT 11/12/2024 1:01 PM - Electronically signed by Kamlesh Smith M.D. LB: [place] Report ID: [id number] Reading Location: [place] [address] Procedure Note Kamlesh Smith MD - 11/12/2024 EXAM DESCRIPTION: PET/CT FDG SKULL TO THIGH RADIOPHARMACEUTICAL: 9.9 mCi F-18 Fluorodeoxyglucose (FDG) via a left antecubital vein IV site REASON FOR STUDY: Right breast cancer follow-up. Last reportedchemotherapy 06/21/2024. TECHNIQUE: The patient's fasting blood glucose level, measured byglucometer before injection of FDG, was 97 mg/dL. After intravenous administrationof FDG, noncontrast CT images were obtained for attenuation correction andfor fusion with emission PET images to allow for anatomical localization ofPET findings. Emission PET images were then obtained. The reportedstandardized uptake value maximum (SUVmax) values have been normalized to body weight (SUVbw). The area imaged spanned the region from the skull base to the proximal thighs . The time from injection of FDG to start of imaging was60 minutes. COMPARISON: PET-CT 04/04/2024 FINDINGS: For reference, the maximum SUV of the ascending thoracic aortais 2.7 . The maximum SUV of the liver is 3.6 . Head: Normal FDG uptake is seen in the included portion of the brain. Neck: Physiologic uptake is present in the paired lymphoid structures. No hypermetabolic lymphadenopathy. Diffuse uptake throughout the thyroid. Correlation with thyroid function tests recommended. Chest: New hypermetabolic mediastinal and bilateral hilar hypermetabolic lymphadenopathy. The subcarinal lymph node conglomerate measuring 4.4 x2.4 cm has an SUV of 18.3. Necrotic appearing lymph node in the right hilar region. An AP window lymph node measuring 2.4 x 1.6 cm has an SUV of15.8. Bilateral hypermetabolic pleural nodularity with an SUV of 15.7 on theleft and 18.9 on the right. The pleural-based nodule on the right measures 2.3x 1.6 cm. This is new from the prior PET-CT. Subcentimeter noncalcifiednodule in the lateral right upper lobe shows low level uptake, suspicious. Thereare other scattered noncalcified pulmonary nodules showing mild uptake, suspicious. Heart size is enlarged. No significant coronary artery calcification. No significant pericardial effusion. Trace right andsmall left pleural effusions. Left chest port tip terminates in themid SVC. Prior right mastectomy. Abdomen and Pelvis: Low-attenuation subcentimeter lesion in the inferior right hepatic lobe is unchanged and shows no focal FDG uptake likely representing a cyst or hemangioma. Prior cholecystectomy. The spleen is normal. Normal pancreas without focal FDG activity. No focal hypermetabolic adrenallesion. Photopenic cyst in the interpolar left kidney requires no specific follow-up. No hydronephrosis. Normal gastrointestinal activity isseen. No hypermetabolic lymph nodes in the abdomen or pelvis. Bones: Postsurgical change in the lower cervical spine. No suspicioushypermetabolic osseous lesions. IMPRESSION: New hypermetabolic mediastinal and bilateral hilar lymphadenopathy ismost consistent with metastatic disease. Bilateral hypermetabolic pleural nodularity is most consistent with metastatic disease. Scattered noncalcified pulmonary nodules show mild uptake, suspicious for metastatic disease. Trace right and small left pleural effusions. Diffuse uptake throughout the thyroid. Correlation with thyroid function tests recommended. THIS IS AN ELECTRONICALLY VERIFIED FINAL REPORT 11/12/2024 1:01 PM - Electronically signed by Kamlesh Smith M.D. LB: [place] Report ID: [id number] Reading Location: [id number] us Jean Trujillo DO IMG PET PROCEDURES Final Res ult * POCT glucose (11/10/2024 12:05 PM DRAPERY CUTTER MACHINE) Glucose, POC 97 70 - 199 mg/dL Comment:Testing performed by : [facility], [address] [place] [address], [place]., [address] Blood 11/10/2024 12:0 5 PM DRAPERY CUTTER MACHINE 11/10/2024 12:05 PM DRAPERY CUTTER MACHINE Jean Trujillo DO LAB POCT ORDERABLES - DEVICE Final Result Performing Organization Address City/State/ZIP Co hi Phone Number CERNER [address] [facility] [place] [address] from Last 3 Months Insurance [employer] Member Subscriber Plan / Payer (Ef fective 2023-Present) Name:Mary Barahona Relation to Subscriber:Self Name:Mary Barahona Payer ID:[id number] Group ID:Not on file Type:Kmsocial Address: [facility] [id number] [place] [id number] [employer] Advance Directives For more information, please contact: [phone] * Full Code (Latest Code Status on File) Date Activated Date Inactivated Comments 11/21/2024 11:30 AM 11/22/2024 4:45 AM Care Teams Student Loan Counselor Relationship Specialty Start Date End Date Yolanda Dougherty MD PCP - General Family Medicine 03/22/24 Jean Trujillo DO [address] [facility] [address] [place] [address] Medical Oncologist/Tool And Die Manager Hematology and Oncology 03/22/24
--- OUTSIDE RECORDS SUMMARY | 2025-02-05 14:30 | XMS_ITS | Clinical Summary ---
Author Organization [facility] Address [facility] [place] [address] Care Team Providers Care Customer Support Executive Name Role Phone Unavailable Primary Care Provider Unavailabl e Social History Tobacco Use Types Packs/Day Years Used Date Smoking Tobacco: Never Assessed Comments Unknown Sex and Gender Information Value Date Recorded Sex Assigned at Not on file Legal Sex Female 7:40 PM CDT Gender Identity Not on file Sexual Orientation Not on file Plan of Treatment Health Maintenance Due Date Last Done Comments Hepatitis C 1963 DTaP, Tdap and Td Vaccines ( 1 - Tdap) 1966 Zoster Vaccines (1 of 2) 1997 Dexa Scan (General) 2012 Pneumococcal Vaccine: 65+ Ye ars (1 of 1 - PCV) 2012 RSV Immunization or 60+ Years (1 - 1-dose 75+ series) 2022 COVID-19 Vaccine (2023-2 5 season) 2024 Influenza Adult (#1) 2024 Meningococcal B Vaccine Aged Out No l onger eligible based on patient's age to complete this topic Meningococcal Vaccine Aged Out No jose jose eligible based on patient's age to complete this topic RSV Immunizations Under 20 Months Aged Out No longer eligible based on patient's age to complete this topic
--- OUTSIDE RECORDS SUMMARY | 2025-02-05 14:30 | XMS_ITS | Clinical Summary ---
Author Organization [facility] andrés [facility] Address [address] [facility] [place] [place] [address] Care Team Providers Care Boom Cat Operator Name Role Phone Unavailable Primary Care Provider Unavailabl e Medications mometasone (ELOCON) 0.1 % Cream Apply to affected area 2 times daily. 45 Gram 3 08/08/2024 Active Social History Tobacco Use Types Packs/Day Years Used Date Smoking Tobacco: Never Assessed Comments Unknown Sex and Gender Information Value Date Recorded Sex Assigned at Not on file Legal Sex Female 10:16 AM CDT Gender Identity Not on file Sexual Orientation Not on file Plan of Treatment Health Maintenance Due Date Last Done Comments DTAP/TDAP/TD VACCINES (1 - Tdap) 1966 PNEUMOCOCCAL VACCINE 50+ YEARS (1 of 1 - PCV) 10/13/19 97 ZOSTER VACCINE (1 of 2) 1997 OSTEOPOROSIS SCREENING 2012 RSV VACCINE (60+ or ) (1 - 1-dose 75+ series) 2022 INFLUENZA VACCINE (#1) 2024 Insurance MEDICARE PART A AND B
--- OUTSIDE RECORDS SUMMARY | 2025-02-05 14:30 | XMS_ITS | Clinical Summary ---
Author Organization [facility] [address] Address [address] [place] [address] Care Team Providers Care Still Operator Gin Name Role Phone Yolanda Dougherty MD Primary Care Provider [phone] CassandraJean simpson DO Unavailable [phone] Allergies No known active allergies Medications levothyroxine [...] 5 days 10 tablet 01/18/20 25 025 Discontinued(Th erapy completed) dexAMETHasone (DECADRON) 4 mg tabletIndicatio [...] from 03/31/2024:Stage IIIC(cT4b, cN0(sn), cM0, G3, ER-, OR-, HER2-) - Signed by Jean Trujillo DO on 07/11/2024 Encounters Date Type Department Care Team Description 02/05/2025 Telephone [facility] Oncology [address] [place] [address] [place] [phone] Unique Moya CMA 02/02/2025 Social Work [facility] Oncology [address] [place] [address] [address] [place] [phone] Destinee Fernandez LCSW 02/02/2025 Telephone [facility] Oncology [address] [place] [address] [address] [place] [phone] Unique Moya, CLARENCE 02/01/2025 Documentation [facility] Oncology [address] [place] [address] [address] [place] [phone] Jean Trujillo DO 02/01/2025 Orders Only [facility] Oncology [address] [place] [address] [address] [place] [phone] ProviderDahiana MD 02/01/2025 Telephone [facility] Oncology [address] [place] [address] [address] [place] [phone] Aminata Johnson, CLARENCE 01/19/2025 11:00 AM LABORATORY ASSOCIATE Clinical Support [facility] at [address] [address] Malignant neoplasm of lower-inner quadrant of right breast of female, estrogen receptor negative (HCC); Dehydration 01/19/2025 9:30 AM LABORATORY ASSOCIATE Clinical Support [facility] Medical Office Building 2 Radiation Oncology [address] [place] [phone] Normochromic anemia (Primary Dx); Malignant neoplasm of lower-inner quadrant of right breast of female, estrogen receptor negative (HCC) 01/19/2025 Telephone [facility] Oncology [address] [place] [phone] Aminata Johnson, CLARENCE 01/19/2025 Orders Only [facility] Oncology [address] [place] [phone] Jean Trujillo, Malignant neoplasm of lower-inner quadrant of right breast of female, estrogen receptor negative (HCC) (Primary Dx); 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); Confusion 01/18/2025 Telephone [facility] Oncology [address] [place] [address] [address] [place] [phone] ElizabethAminata bowenCLARENCE 01/05/2025 12:00 PM LABORATORY ASSOCIATE Office Visit [facility] Oncology [address] [place] [address] [address] [place] [phone] Jean Trujillo, Malignant neoplasm of lower-inner quadrant of right breast of female, estrogen receptor negative (HCC) (Primary Dx); 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); Hypokalemia 01/01/2025 10:30 AM LABORATORY ASSOCIATE Lab [facility] Outpatient Lab at [address] [phone] Malignant neoplasm of lower-inner quadrant of right breast of female, estrogen receptor negative (HCC) (Primary Dx) 01/01/2025 10:19 AM LABORATORY ASSOCIATE - 01/01/2025 11:59 PM LABORATORY ASSOCIATE Hospital Encounter [address] [address] Malignant neoplasm of lower-inner quadrant of right breast of female, estrogen receptor negative (HCC); Lymphadenopathy, mediastinal Discharge Disposition: Discharge to home or self care 12/01/2024 9:45 AM LABORATORY ASSOCIATE Office Visit [facility] Oncology [address] [place] [address] [address] [place] [phone] Jean Trujillo DO Malignant neoplasm of lower-inner quadrant of right breast of female, estrogen receptor negative (HCC) (Primary Dx); Lymphadenopathy, mediastinal; Encounter for person encountering health services; Presence of heart assist device (HCC); 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); Malignant neoplasm metastatic to right lung (HCC) 11/23/2024 Telephone [facility] [place] [address] [place] [address] Hanna Arnold RN 11/21/2024 11:56 AM LABORATORY ASSOCIATE - 11/21/2024 11:59 PM LABORATORY ASSOCIATE Hospital Encounter [facility] [address] [place] [address] Discharge Disposition: Discharge to home or self care 11/21/2024 7:43 AM LABORATORY ASSOCIATE - 11/21/2024 11:59 PM LABORATORY ASSOCIATE Hospital Encounter [facility] [address] [place] [address] Rn, Mhb Rad Malignant neoplasm of lower-inner quadrant of right breast of female, estrogen receptor negative (HCC); Pleural mass; Encounter for biopsy; Encounter for therapeutic drug monitoring Discharge Disposition: Discharge to home or self care 11/17/2024 Orders Only [facility] Oncology [address] [place] [phone] Jean Trujillo, Malignant neoplasm of lower-inner quadrant of right breast of female, estrogen receptor negative (HCC) (Primary Dx); Pleural mass; Encounter for biopsy; Encounter for therapeutic drug monitoring 11/17/2024 Documentation [facility] Oncology [address] [place] [phone] Jean Trujillo DO 11/13/2024 Telephone [facility] Oncology [address] [place] [phone] Fanny Sibley RN 11/10/2024 11:51 AM LABORATORY ASSOCIATE - 11/10/2024 11:59 PM LABORATORY ASSOCIATE Hospital Encounter [facility] Medical Office Building [address] [address] Discharge Disposition: Discharge to home or self care 11/09/2024 Telephone [facility] Diabetes and Endocrinology [address] [place] [phone] Elva Benavides MD new referral to endocrinology from Last 3 Months Surgical History Surgery Date Site/Laterality Comments MASTECTOMY 11/22/2023 - 11/21/2024 REPLACEMENT TOTAL KNEE NECK SURGERY BACK SURGERY three back surgeries LUNG BIOPSY 10/22/2024 - 11/21/2024 Medical History Medical History Date Comments Asthma Adrenal insufficiency Hypothyroid Family History Medical History Relation Name Comments Prostate cancer Brother 1 Prostate cancer Brother 2 Skin cancer Daughter No Known Problems Father No Known Problems Maternal Grandfather No Known Problems Maternal Grandmother No Known Problems Mother Breast cancer Other aunt No Known Problems Paternal Grandfather No Known Problems Paternal Grandmother Relation Name Status Comments Brother 1 Brother 2 Alive Daughter Alive Father Maternal Grandfather Maternal Grandmother Mother Other aunt Alive Paternal Grandfather Paternal Grandmother Social History Tobacco Use Types Packs/Day Years [...] on file Legal Sex Female 1:58 AM LABORATORY ASSOCIATE Gender Identity Not on file Sexual Orientation Not on file 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 Industry 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 Start 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 Job 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 [employer]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 Not on file Not on file Not on nicolas e Obstetrics History Last Filed Vital Signs Vital Sign Reading Time Taken Comments Blood Pressure 116/80 01/05/2025 11:59 AM LABORATORY ASSOCIATE Pulse 96 01/05/2025 11:59 AM LABORATORY ASSOCIATE Temperature 36.4 C (97.5 F) 01/05/2025 11:59 AM LABORATORY ASSOCIATE Respiratory Rate 18 01/05/2025 11:5 9 AM LABORATORY ASSOCIATE Oxygen Saturation 99% 01/05/2025 11: 59 AM LABORATORY ASSOCIATE Inhaled Oxygen Concentration - - Weight 59.7 kg (131 lb 9.8 oz) 01/05/20 25 11:59 AM LABORATORY ASSOCIATE with shoes Height 160 cm (5' 3) 11/21/2024 8:09 AM LABORATORY ASSOCIATE Body Mass Index 23.31 11/21/2024 8:09 AM LABORATORY ASSOCIATE Plan of Treatment Health Maintenance Due Date Last Done Comments Depression Screening 1945 Hepatitis C Screening 1945 Osteoporosis Screening-Bone Density Scan 1945 Hepatitis B Screening 1965 Zoster Vaccine (1 of 2) 1966 Well Visit 65+ 2012 DTaP/Tdap/Td Vaccine (1 - Tdap) 12/08/2017 8, 10/11/2006 Influenza Vaccine (#1) 2024 Fall Risk Assessment 11/21/2025 11/21/2024 Pneumococcal vaccine 65+ Completed 016, 11/22/2015, 08/01/2013 Medical Devices Implanted Type Area [facility] Device Identifier Shelf Expiration Date Model / Serial / Lot Right Knee Replacement Other - see comments Right: Knee Procedures Procedure Name Priority Date/Time Associated Diagnosis Comments MRI BRAIN W WO CONTRAST Schedule Routine, Read Routine (OP Routine) 02/01/2025 4:24 PM CDT EGFR Routine 01/19/2025 10:55 AM LABORATORY ASSOCIATE Malignant neoplasm of lower-inner quadrant of right breast of female, estrogen receptor negative (HCC) Dehydration DIFFERENTIAL AUTO Routine 01/19/2025 10: 55 AM LABORATORY ASSOCIATE Malignant neoplasm of lower-inner quadrant of right breast of female, estrogen receptor negative (HCC) Dehydration CBC WITH AUTO DIFFERENTIAL Routine 01/19/2025 10:55 AM LABORATORY ASSOCIATE Malignant neoplasm of lower-inner quadrant of right breast of female, estrogen receptor negative (HCC) Dehydration COMPREHENSIVE METABOLIC PANEL Routine 01/19/2025 10:55 AM LABORATORY ASSOCIATE Malignant neoplasm of lower-inner quadrant of right breast of female, estrogen receptor negative (HCC) Dehydration MAGNESIUM Routine 01/19/2025 10:55 AM LABORATORY ASSOCIATE Malignant neoplasm of lower-inner quadrant of right breast of female, estrogen receptor negative (HCC) Dehydration EGFR Routine 01/01/2025 10:19 AM LABORATORY ASSOCIATE Malignant neoplasm of lower-inner quadrant of right breast of female, estrogen receptor negative (HCC) Lymphadenopathy, mediastinal DIFFERENTIAL AUTO Routine 01/01/2025 10: 19 AM LABORATORY ASSOCIATE Malignant neoplasm of lower-inner quadrant of right breast of female, estrogen receptor negative (HCC) Lymphadenopathy, mediastinal COMPREHENSIVE METABOLIC PANEL Routine 01/01/2025 10:19 AM LABORATORY ASSOCIATE Malignant neoplasm of lower-inner quadrant of right breast of female, estrogen receptor negative (HCC) Lymphadenopathy, mediastinal CBC WITH AUTO DIFFERENTIAL Routine 01/01/2025 10:19 AM LABORATORY ASSOCIATE Malignant neoplasm of lower-inner quadrant of right breast of female, estrogen receptor negative (HCC) Lymphadenopathy, mediastinal TEMPUS XT DNA AND RNA SOLID TUMOR Routine 12/01/2024 10:35 AM LABORATORY ASSOCIATE Malignant neoplasm of lower-inner quadrant of right breast of female, estrogen receptor negative (HCC) Malignant neoplasm metastatic to right lung (HCC) XR CHEST 1 VIEW Timed 11/21/2024 12:[address] NEEDLE BIOPSY LUNG RIGHT Schedule Routine, Read Routine (OP Routine) 11/21/2024 10:54 AM LABORATORY ASSOCIATE Malignant neoplasm of lower-inner quadrant of right breast of female, estrogen receptor negative (HCC) Pleural mass Encounter for biopsy SURGICAL PATHOLOGY Routine 11/21/2024 10 :16 AM LABORATORY ASSOCIATE Malignant neoplasm of lower-inner quadrant of right breast of female, estrogen receptor negative (HCC) Pleural mass Encounter for biopsy DIFFERENTIAL AUTO Routine 11/21/2024 8:1 3 AM LABORATORY ASSOCIATE Malignant neoplasm of lower-inner quadrant of right breast of female, estrogen receptor negative (HCC) Encounter for biopsy Encounter for therapeutic drug monitoring CBC WITH AUTO DIFFERENTIAL Routine 11/21/2024 8:13 AM LABORATORY ASSOCIATE Malignant neoplasm of lower-inner quadrant of right breast of female, estrogen receptor negative (HCC) Encounter for biopsy Encounter for therapeutic drug monitoring APTT Routine 11/21/2024 8:13 AM LABORATORY ASSOCIATE Malignant neoplasm of lower-inner quadrant of right breast of female, estrogen receptor negative (HCC) Encounter for biopsy Encounter for therapeutic drug monitoring PROTIME-INR Routine 11/21/2024 8:13 AM LABORATORY ASSOCIATE Malignant neoplasm of lower-inner quadrant of right breast of female, estrogen receptor negative (HCC) Encounter for biopsy Encounter for therapeutic drug monitoring PET/CT FDG SKULL TO THIGH Schedule Routine, Read Routine (OP Routine) 11/10/2024 1:35 PM LABORATORY ASSOCIATE Malignant neoplasm of lower-inner quadrant of right breast of female, estrogen receptor negative (HCC) Lymphadenopathy, mediastinal Triple negative breast cancer (HCC) POCT GLUCOSE DEVICE Routine 11/10/2024 1 2:05 PM LABORATORY ASSOCIATE from Last 3 Months Results * MRI Brain W WO Contrast (02/01/2025 4:24 PM CDT) Anatomical Region Laterality Modality Head and Neck N/A Magnetic Resonan ce us Historical Provider MD HARO MRI PROCEDURES Final Result * eGFR (01/19/2025 10:55 AM LABORATORY ASSOCIATE) eGFR 66 >=60 mL/min/1. 73 m2 Comment: [...] was last reviewed 2021. Testing performed by: [facility], [address] [place] [address]., [address] Blood 01/19/2025 10:5 5 AM LABORATORY ASSOCIATE 01/19/2025 11:09 AM LABORATORY ASSOCIATE us Jean Trujillo DO LAB BLOOD ORDERABLES Final R esult [facility] [address] [facility] Department [place] [address] * Differential, auto (01/19/2025 10:55 AM LABORATORY ASSOCIATE) Neutrophil abs 4.7 1.5 - 6.5 K/cumm Comment:Testing performed by : [address], [place]., [address] Imm gran abs 0.0 0.0 - 0.1 K/cumm [facility] Comment:Testing performed by : [address], [place]., [address] Lymphocyte abs 0.8 0.8 - 3.3 K/cumm [facility] Comment:Testing performed by : [address], [place]., [address] Monocyte abs 0.5 0.2 - 0.8 K/cumm [facility] Comment:Testing performed by : [address], [place]., [address] Eosinophil abs 0.1 0.0 - 0.5 K/cumm [facility] Comment:Testing performed by : [address] [address] Basophil abs 0.0 0.0 - 0.1 K/cumm [facility] Comment:Testing performed by : [address] [address] Neutrophil pct 77.9 % [facility] Comment: Interpretive Data Percent cell count reference ranges are not reported, since discordance with absolute values may lead to misinterpretation of CBC data. Current Interpretive Data was last revised on 2018. Testing performed by: [address] [address] Imm gran pct 0.5 % [facility] Comment: Interpretive Data Percent cell count reference ranges are not reported, since discordance with absolute values may lead to misinterpretation of CBC data. Current Interpretive Data was last revised on 2018. Testing performed by: [address] [address] Lymphocyte pct 12.7 % [facility] Comment: Interpretive Data Percent cell count reference ranges are not reported, since discordance with absolute values may lead to misinterpretation of CBC data. Current Interpretive Data was last revised on 2018. Testing performed by: [address] [address] Monocyte pct 7.9 % [facility] Comment: Interpretive Data Percent cell count reference ranges are not reported, since discordance with absolute values may lead to misinterpretation of CBC data. Current Interpretive Data was last revised on 2018. Testing performed by: [address] [address] Eosinophil pct 0.8 % [facility] Comment: Interpretive Data Percent cell count reference ranges are not reported, since discordance with absolute values may lead to misinterpretation of CBC data. Current Interpretive Data was last revised on 2018. Testing performed by: [address] [address] Basophil pct 0.2 % [facility] Comment: Interpretive Data Percent cell count reference ranges are not reported, since discordance with absolute values may lead to misinterpretation of CBC data. Current Interpretive Data was last revised on 2018. Testing performed by: [address] [address] Blood 01/19/2025 10:5 5 AM LABORATORY ASSOCIATE 01/19/2025 11:09 AM LABORATORY ASSOCIATE us Jean Trujillo DO LAB BLOOD ORDERABLES Final R esult [facility] [address] [facility] Department [place] [address] * (ABNORMAL) CBC with auto differential (01/19/2025 10:55 AM LABORATORY ASSOCIATE) Pathologist [facility] WBC 6.0 3.8 - 9.9 K/cumm Comment:Testing performed by : [address] [address] Hgb 12.0 11.9 - 15.5 g/dL [facility] Comment:Testing performed by : [address] [address] Hct 35.2(L) 35.6 - 45.5 % [facility] Comment:Testing performed by : [address] [address] Plt 227 150 - 400 K/cumm [facility] Comment:Testing performed by : [address] [address] MPV 10.1 9.1 - 12.3 fL [facility] Comment:Testing performed by : [address] [address] RBC 3.91 3.90 - 5.20 M/cumm [facility] Comment:Testing performed by : [address] [address] MCV 90.0 81.3 - 96.4 fL [facility] Comment:Testing performed by : [address] [address] MCH 30.7 27.1 - 33.3 pg [facility] Comment:Testing performed by : [address] [address] MCHC 34.1 32.3 - 35.7 g/dL [facility] Comment:Testing performed by : [address] [address] RDW CV 18.9(H) 11.1 - 14.9 % [facility] Comment:Testing performed by : [address] [address] RDW SD 55.0(H) 35.7 - 48.1 fL [facility] Comment:Testing performed by : [address] [address] NRBC abs 0.00 0.00 - 0.01 K/cumm [facility] Comment:Testing performed by : [address] [address] Blood 01/19/2025 10:5 5 AM LABORATORY ASSOCIATE 01/19/2025 11:09 AM LABORATORY ASSOCIATE us Jean Trujillo DO LAB BLOOD ORDERABLES Final R esult [facility] [address] [facility] Department [place] [address] * Magnesium (01/19/2025 10:55 AM LABORATORY ASSOCIATE) [facility] Magnesium 2.0 1.4 - 2.5 mg/dL Comment:Testing performed by : [address] [place] [address] Blood 01/19/2025 10:5 5 AM LABORATORY ASSOCIATE 01/19/2025 11:09 AM LABORATORY ASSOCIATE Jean Trujillo DO LAB BLOOD ORDERABLES Final R esult [facility] [address] [facility] Department [place] [address] * Comprehensive metabolic panel (01/19/2025 10:55 AM LABORATORY ASSOCIATE) Sodium 139 135 - 145 mmol/L Comment:Testing performed by : [address] [address] Potassium, pl 3.6 3.3 - 4.9 mmol/L [facility] Comment:Testing performed by : [address] [address] Chloride 102 97 - 110 mmol/L [facility] Comment:Testing performed by : [address] [address] CO2 24 22 - 32 mmol/L [facility] Comment:Testing performed by : [address] [address] Anion gap 13 2 - 15 mmol/L [facility] Comment:Testing performed by : [address] [address] BUN 11 6 - 25 mg/dL [facility] Comment:Testing performed by : [address] [address] Creatinine 0.90 0.60 - 1.10 mg/dL [facility] Comment:Testing performed by : [address] [address] Glucose 104 70 - 199 mg/dL [facility] [...] was last revised 2022. Testing performed by: [address] [address] Calcium 9.6 8.5 - 10.3 mg/dL [facility] Comment:Testing performed by : [address] [address] Bilirubin, total 0.9 0.1 - 1.2 mg/dL [facility] Comment:Testing performed by : [address] [address] Protein, pl 6.8 6.5 - 8.5 g/dL [facility] Comment:Testing performed by : [address] [address] Albumin 3.8 3.5 - 5.0 g/dL [facility] Comment:Testing performed by : [address] [address] Alk phos 77 40 - 130 Units/L [facility] Comment:Testing performed by : [address] [address] ALT 7 7 - 45 Units/L [facility] Comment:Testing performed by : [address] [address] AST 17 10 - 45 Units/L [facility] Comment:Testing performed by : [address] [address] Blood 01/19/2025 10:5 5 AM LABORATORY ASSOCIATE 01/19/2025 11:09 AM LABORATORY ASSOCIATE us Jean Trujillo DO LAB BLOOD ORDERABLES Final R esult [facility] [address] [facility] Department of Laboratories [place], [place] [id number] * (ABNORMAL) eGFR (01/01/2025 10:19 AM LABORATORY ASSOCIATE) [facility] eGFR 57(L) >=60 mL/min/1. 73 m2 Comment: [...] reviewed 2021. Blood 01/01/2025 10:1 9 AM LABORATORY ASSOCIATE 01/01/2025 3:48 PM LABORATORY ASSOCIATE Jean Trujillo DO LAB BLOOD ORDERABLES Final R esult [facility] [address] Department of Laboratories [place], [place] [phone] * Differential, auto (01/01/2025 10:19 AM LABORATORY ASSOCIATE) Pathologist [facility] Neutrophil abs 3.9 1.5 - 6.5 K/cumm Imm gran abs 0.0 0.0 - 0.1 K/cumm [facility] Lymphocyte abs 1.1 0.8 - 3.3 K/cumm [facility] Monocyte abs 0.7 0.2 - 0.8 K/cumm [facility] Eosinophil abs 0.1 0.0 - 0.5 K/cumm [facility] Basophil abs 0.0 0.0 - 0.1 K/cumm [facility] Neutrophil pct 67.2 % [facility] Comment: Interpretive Data Percent cell count reference ranges are not reported, since discordance with absolute values may lead to misinterpretation of CBC data. Current Interpretive Data was last revised on 2018. Imm gran pct 0.3 % [facility] Comment: Interpretive Data Percent cell count reference ranges are not reported, since discordance with absolute values may lead to misinterpretation of CBC data. Current Interpretive Data was last revised on 2018. Lymphocyte pct 19.4 % [facility] Comment: Interpretive Data Percent cell count reference ranges are not reported, since discordance with absolute values may lead to misinterpretation of CBC data. Current Interpretive Data was last revised on 2018. Monocyte pct 11.9 % [facility] Comment: Interpretive Data Percent cell count reference ranges are not reported, since discordance with absolute values may lead to misinterpretation of CBC data. Current Interpretive Data was last revised on 2018. Eosinophil pct 0.9 % [facility] Comment: Interpretive Data Percent cell count reference ranges are not reported, since discordance with absolute values may lead to misinterpretation of CBC data. Current Interpretive Data was last revised on 2018. Basophil pct 0.3 % [facility] Comment: Interpretive Data Percent cell count reference ranges are not reported, since discordance with absolute values may lead to misinterpretation of CBC data. Current Interpretive Data was last revised on 2018. Blood 01/01/2025 10:1 9 AM LABORATORY ASSOCIATE 01/01/2025 3:31 PM LABORATORY ASSOCIATE us Jean Trujillo DO LAB BLOOD ORDERABLES Final R esult [facility] [address] Department [place] [address] * (ABNORMAL) CBC with auto differential (01/01/2025 10:19 AM LABORATORY ASSOCIATE) WBC 5.8 3.8 - 9.9 K/cumm Hgb 13.0 11.9 - 15.5 g/dL [facility] Hct 40.4 35.6 - 45.5 % [facility] Plt 270 150 - 400 K/cumm [facility] MPV 10.5 9.1 - 12.3 fL [facility] RBC 4.12 3.90 - 5.20 M/cumm [facility] MCV 98.1(H) 81.3 - 96.4 fL [facility] MCH 31.6 27.1 - 33.3 pg [facility] MCHC 32.2(L) 32.3 - 35.7 g/dL [facility] RDW CV 18.1(H) 11.1 - 14.9 % [facility] RDW SD 53.9(H) 35.7 - 48.1 fL [facility] NRBC abs 0.00 0.00 - 0.01 K/cumm [facility] Blood 01/01/2025 10:1 9 AM LABORATORY ASSOCIATE 01/01/2025 3:31 PM LABORATORY ASSOCIATE us Jean Trujillo DO LAB BLOOD ORDERABLES Final R esult [facility] [address] Department [place] [address] * (ABNORMAL) Comprehensive metabolic panel (01/01/2025 10:19 AM LABORATORY ASSOCIATE) Sodium 139 135 - 145 mmol/L Potassium, [...] classification and Diagnosis of Diabetes Diabetes Care 202; 46: S19-S40. Current interpretive data was last [...] [facility] Blood 01/01/2025 10:1 9 AM LABORATORY ASSOCIATE 01/01/2025 3:31 PM LABORATORY ASSOCIATE Jean Trujillo DO LAB BLOOD ORDERABLES Final R esult [facility] [address] Department [place] [address] * Tempus xT DNA and RNA - Tumor Only (12/01/2024 10:35 AM LABORATORY ASSOCIATE) Reason for Study To identify somatic and germline mutations relevant to patient's cancer. 12/23/2024 6:14 PM LABORATORY ASSOCIATE [facility] Genetic Diseases Assessed Cancer 12/23/2024 6:14 PM LABORATORY ASSOCIATE [facility] Description of Ranges of DNA Sequences Examined 648 gene panel 12/23/2024 6:14 PM LABORATORY ASSOCIATE [facility] Overall Interpretation positive 12/23/2024 6:14 PM LABORATORY ASSOCIATE [facility] MSI Stable 12/23/2024 6:14 PM LABORATORY ASSOCIATE [facility] TMB 6.3 m/MB 12/23/2024 6:14 PM LABORATORY ASSOCIATE [facility] [id number] [id number] 12/23/2024 6:14 PM LABORATORY ASSOCIATE [facility] Comment:[facility] link MMR Overall Result normal 12/23/2024 6:14 PM LABORATORY ASSOCIATE [facility] MLH1 Presence or Absence present 12/23/2024 6:14 PM LABORATORY ASSOCIATE [facility] PMS2 Presence or Absence present 12/23/2024 6:14 PM LABORATORY ASSOCIATE [facility] MSH2 Presence or Absence present 12/23/2024 6:14 PM LABORATORY ASSOCIATE [facility] MSH6 Presence or Absence present 12/23/2024 6:14 PM LABORATORY ASSOCIATE [facility] PD-L1 Interpretation by 22C3 negative 12/23/2024 6:14 PM LABORATORY ASSOCIATE [facility] PD-L1 (22C3) Combined Positive Score 5 12/23/2024 6:14 PM LABORATORY ASSOCIATE [facility] PD-L1 (22C3) Tumor Proportion Score 3 % 12/23/2024 6:14 PM LABORATORY ASSOCIATE [facility] Pertinent Negatives ERBB2 (HER2), ESR1, PIK3CA 12/23/2024 6:14 PM LABORATORY ASSOCIATE [facility] Low Coverage Regions EPHB2, KDM5D, RXRA, TGFBR1 12/23/2024 6:14 PM LABORATORY ASSOCIATE [facility] Therapy Count 1 12/23/2024 6:14 PM LABORATORY ASSOCIATE [facility] Tempus: Potential Therapy 1 Gene: 9588^PTEN^HGNC Variant: p.I203fs Match Type: snvIndel Match Type Description: PTEN p.I203fs Agent: Capivasertib + Fulvestrant Drug Class: Combination (Addison-AKT Inhibitor + Estrogen Receptor Antagonist) Tissue: Breast Cancer Association: Response Evidence Status: Consensus Evidence ID: NCCN [id number] Variant: [id number] Label: FDA Off Label FDA Approved?: Yes On label?: No 12/23/2024 6:14 PM LABORATORY ASSOCIATE [facility] Trial Count 3 12/23/2024 6:14 PM LABORATORY ASSOCIATE [facility] Tempus: Clinical Trial Match 1 Clinical Trial NCT ID: [id number] Clinical Trial Title: Pemetrexed Response in Relation to Tumor Alterations of Gene Status for the Treatment of Patients With Metastatic Urothelial Bladder Cancer and Other Solid Tumors Clinical Trial URL: [email or web address]://clinicalt rials.gov/ct2/moriah w/[email or web address] Clinical Phase: Phase 2 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 Clinical Trial Distance and Location: [address] [place] [address] 12/23/2024 6:14 PM LABORATORY ASSOCIATE [facility] Tempus: Clinical Trial Match 2 Clinical Trial NCT ID: [id number] Clinical Trial Title: IACS-6274 With or Without Bevacizumab and Paclitaxel for the Treatment of Advanced Solid Tumors Clinical Trial URL: [email or web address]://clinicalt rials.gov/ct2/moriah w/[email or web address] Clinical Phase: Phase 1 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 Clinical Trial Distance and Location: [address], [place], [place] 12/23/2024 6:14 PM LABORATORY ASSOCIATE [facility] Tempus: Clinical Trial Match 3 Clinical Trial NCT ID: [id number] Clinical Trial Title: Study of the CDK4/6 Inhibitor Palbociclib ([id number]) in Combination With the PI3K/mTOR Inhibitor Gedatolisib ([id number]) for Patients With Advanced Squamous Cell Lung, Pancreatic, Head & Neck and Other Solid Tumors Clinical Trial URL: [email or web address]://clinicalt [email or web address].gov/ct2/moriah w/[email or web address] Clinical Phase: Phase 1 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 No gene rearrangements nor reportable altered splicing events were identified from RNA sequencing. 12/23/2024 6:14 PM LABORATORY ASSOCIATE [facility] Germline Variant Note No normal sample was received, therefore tumor/normal matched analysis was not performed. 12/23/2024 6:14 PM LABORATORY ASSOCIATE [facility] HLA-A Typing A*02:01,A*29:02 025 6:14 PM LABORATORY ASSOCIATE [facility] HLA-B Typing B*51:01,B*51:01 025 6:14 PM LABORATORY ASSOCIATE [facility] HLA-C Typing C*01:02,C*14:02 025 6:14 PM LABORATORY ASSOCIATE [facility] HLA-A Ambiguous Alleles Yes 12/23/2024 6:14 PM LABORATORY ASSOCIATE [facility] HLA-B Ambiguous Alleles Yes 12/23/2024 6:14 PM LABORATORY ASSOCIATE [facility] HLA-C Ambiguous Alleles Yes 12/23/2024 6:14 PM LABORATORY ASSOCIATE [facility] HLA-A Sample Type Tumor Only 025 6:14 PM LABORATORY ASSOCIATE [facility] HLA-B Sample Type Tumor Only 025 6:14 PM LABORATORY ASSOCIATE [facility] HLA-C Sample Type Tumor Only 025 6:14 PM LABORATORY ASSOCIATE [facility] Tissue 12/01/2024 10:3 5 AM LABORATORY ASSOCIATE 12/08/2024 2:27 PM LABORATORY ASSOCIATE Narrative This result has genomic variants that were not included in this document. Jean Trujillo DO LAB GENETIC TESTING Final Re sult [facility] [address], [address] [phone] [facility] [address], [address] [place] [address] * XR Chest 1 Vw - Portable (11/21/2024 12:15 PM LABORATORY ASSOCIATE) Anatomical Region Laterality Modality Body, Chest N/A Computed Radiogr aphy 11/21/2024 12:1 8 PM LABORATORY ASSOCIATE Narrative 11/21/2024 12:30 PM LABORATORY ASSOCIATE EXAM DESCRIPTION: XR CHEST 1 VIEW . [...] 12:30 PM - Electronically signed by Hussain MAC T: Report ID: [id number] Reading Location: [id number] Procedure Note Hussain Sanchez MD - 11/21/2024 [...] Hussain Sanchez M.D. SN T: Report ID: [id number] Reading Location: [id number] Hussain Sanchez MD IMG XR PROCEDURES Final Result * CT Lung Needle Biopsy Right (11/21/2024 10:54 AM LABORATORY ASSOCIATE) Anatomical Region Laterality Modality Lung N/A Computed Tomogra phy, Computed Radiography 11/21/2024 11:0 6 AM LABORATORY ASSOCIATE Narrative 11/21/2024 11:07 AM LABORATORY ASSOCIATE EXAM DESCRIPTION: CT NEEDLE BIOPSY LUNG RIGHT [...] Hussain Sanchez M.D. SN T: Report ID: [id number] Reading Location: [id number] Procedure Note Hussain Sanchez MD - 11/21/2024 [...] 11:07 AM - Electronically signed by Hussain MAC T: Report ID: [id number] Reading Location: [place] [address] Jean Trujillo DO IMG CT PROCEDURES Final Resu lt * Surgical pathology (11/21/2024 10:16 AM LABORATORY ASSOCIATE) Tissue (Lung Biopsy) 11/21/2024 10:16 AM LABORATORY ASSOCIATE Narrative PATHOLOGY [facility] - 11/30/2024 3:58 PM LABORATORY ASSOCIATE [facility] Department of Pathology [address] [place] [address] Note to Patients: This report may contain [...] : 1945 (Age: 79) Gender: F Address: [address] [place] [address] Hospital #: [id number] Service: DEFAULT Location: Patient Type: [facility] ANCILLARY Taken: 11/21/2024 Received: 11/21/2024 Accessioned: [...] Technical Notes Estrogen receptor (ER), progesterone receptor (OR), and HER2 were evaluated by immunohistochemistry (IHC) by morphometric analysis in routine formalin-fixed paraffin-embedded tissue using a proprietary polymer- based detection system and instrumentation by [employer] per truck caterer's recommendation. The IHC results for ER (antibody SP1) and OR (antibody 1E2) were quantified and interpreted (positive vs negative) using the Jossie score (total score range = 0 to 8; positive >2) (see: Mod Pathol 11:155, 1998; J Clin Oncol 17:1474, 1998; Mod Pathol 17:1545, 2004; Arch Pathol Lab Med 144:545, 2020). Pathway Her2 is a trademark of [employer] The IHC results for Pathway Her2 [...] a proprietary polymer-based detection system andinstrumentation by [employer] per truck caterer's recommendation. The index was determined by manual [...] ordered molecular analysis. Materials were forwarded to [facility] where the PD-L1, MMR test will be [...] Iam Diez 11/21/2024 at 10:45 AM Iam Diez, DO Microscopic Description: I have reviewed the [...] Jar 0. jjmhb/11/21/2024 11:34 ESTEFANI Raymundo, PA (ASCP) Microscopic slide review and interpretation for this case was performed at [facility], Department of Surgical Pathology, [address] [facility] [place], [place] [id number], [place] [id number] CLIA # [id number] us Jean Trujillo DO LAB PATHOLOGY ORDERABLES Fin al Result PATHOLOGY [facility] * Differential, auto (11/21/2024 8:13 AM LABORATORY ASSOCIATE) Neutrophil abs 3.8 1.5 - 6.5 K/cumm Imm gran abs 0.0 0.0 - 0.1 K/cumm [facility] Lymphocyte abs 1.3 0.8 - 3.3 K/cumm [facility] Monocyte abs 0.6 0.2 - 0.8 K/cumm [facility] Eosinophil abs 0.1 0.0 - 0.5 K/cumm [facility] Basophil abs 0.0 0.0 - 0.1 K/cumm [facility] Neutrophil pct 65.0 % [facility] Comment: Interpretive Data Percent cell count reference ranges are not reported, since discordance with absolute values may lead to misinterpretation of CBC data. Current Interpretive Data was last revised on 2018. Imm gran pct 0.3 % [facility] Comment: Interpretive Data Percent cell count reference ranges are not reported, since discordance with absolute values may lead to misinterpretation of CBC data. Current Interpretive Data was last revised on 2018. Lymphocyte pct 22.8 % [facility] Comment: Interpretive Data Percent cell count reference ranges are not reported, since discordance with absolute values may lead to misinterpretation of CBC data. Current Interpretive Data was last revised on 2018. Monocyte pct 9.7 % [facility] Comment: Interpretive Data Percent cell count reference ranges are not reported, since discordance with absolute values may lead to misinterpretation of CBC data. Current Interpretive Data was last revised on 2018. Eosinophil pct 1.7 % [facility] Comment: Interpretive Data Percent cell count reference ranges are not reported, since discordance with absolute values may lead to misinterpretation of CBC data. Current Interpretive Data was last revised on 2018. Basophil pct 0.5 % [facility] Comment: Interpretive Data Percent cell count reference ranges are not reported, since discordance with absolute values may lead to misinterpretation of CBC data. Current Interpretive Data was last revised on 2018. Blood 11/21/2024 8:13 AM LABORATORY ASSOCIATE 11/21/2024 8:17 AM LABORATORY ASSOCIATE Jean Trujillo DO LAB BLOOD ORDERABLES Final R esult [facility] [address] [facility] Department [place] [address] * (ABNORMAL) CBC with auto differential (11/21/2024 8:13 AM LABORATORY ASSOCIATE) WBC 5.8 3.8 - 9.9 K/cumm Hgb 11.3(L) 11.9 - 15.5 g/dL [facility] Hct 35.5(L) 35.6 - 45.5 % [facility] Plt 265 150 - 400 K/cumm [facility] MPV 10.0 9.1 - 12.3 fL [facility] RBC 3.80(L) 3.90 - 5.20 M/cumm [facility] MCV 93.4 81.3 - 96.4 fL [facility] MCH 29.7 27.1 - 33.3 pg [facility] MCHC 31.8(L) 32.3 - 35.7 g/dL [facility] RDW CV 15.9(H) 11.1 - 14.9 % [facility] RDW SD 53.2(H) 35.7 - 48.1 fL [facility] NRBC abs 0.00 0.00 - 0.01 K/cumm [facility] Blood 11/21/2024 8:13 AM LABORATORY ASSOCIATE 11/21/2024 8:17 AM LABORATORY ASSOCIATE Narrative [facility] - 11/21/2024 8:22 AM LABORATORY ASSOCIATE Dx codes Z76.89, Z01.818 Jean Trujillo [facility] BLOOD ORDERABLES Final R esult Performing Organization Address [facility] de Phone Number [address] [place] [address] * aPTT (11/21/2024 8:13 AM LABORATORY ASSOCIATE) Pathologist [facility] aPTT 25 22 - 37 sec Comment: Interpretive data aPTT test has not been evaluated for monitoring heparin therapy. The anti-Xa is the preferred test. Current interpretive data was last revised on 2019. Blood 11/21/2024 8:13 AM LABORATORY ASSOCIATE 11/21/2024 8:17 AM LABORATORY ASSOCIATE Jean Shaffernti [facility] BLOOD ORDERABLES Final RUST Performing Organization Address [facility] de Phone Number [address] [address] * Protime-INR (11/21/2024 8:13 AM LABORATORY ASSOCIATE) PT 13.2 12.0 - 14.6 sec INR 1.0 0.9 - 1.2 [facility] Comment: Ref Range High Interpretive data Oral anticoagulant therapeutic ranges: Venous thromboembolism prophylaxis or treatment: 2.0-3.0 CARDIOLOGY Standard range: 2.0-3.0 High-intensity range: 2.5-3.5 Refer to indication-specific guidelines for appropriate target ranges for prosthetic heart valve replacement. Current interpretive data was last revised on 2019. Blood 11/21/2024 8:13 AM LABORATORY ASSOCIATE 11/21/2024 8:17 AM LABORATORY ASSOCIATE us Jean LovellVance Cassandra DO LAB BLOOD ORDERABLES Final R esult [facility] [address] [facility] Department [place] [address] * PET/CT FDG Skull to Thigh (11/10/2024 1:35 PM LABORATORY ASSOCIATE) Anatomical Region Laterality Modality N/A Positron Emissio n Tomography (PET) 11/10/2024 4:50 PM LABORATORY ASSOCIATE Narrative 11/12/2024 1:01 PM LABORATORY ASSOCIATE EXAM DESCRIPTION: PET/CT FDG SKULL TO THIGH [...] Kamlesh Smith M.D. LB: [place] Report ID: [id number] Reading Location: [id number] Procedure Note Kamlesh Smith MD - 11/12/2024 [...] Kamlesh Smith M.D. LB: [place] Report ID: [id number] Reading Location: [id number] Jean Trujillo DO IMG PET PROCEDURES Final Res ult * POCT glucose (11/10/2024 12:05 PM LABORATORY ASSOCIATE) [facility] Signature Glucose, POC 97 70 - 199 mg/dL Comment:Testing performed by : [facility], [address] [place] [address]., [address] Blood 11/10/2024 12:0 5 PM LABORATORY ASSOCIATE 11/10/2024 12:05 PM LABORATORY ASSOCIATE Jean Trujillo DO LAB POCT ORDERABLES - DEVICE Final Result [facility] [address] [facility] Department [place] [address] from Last 3 Months Insurance MEDICARE [facility] MEDICARE [facility] MEDICARE [employer] Advance Directives For more information, please contact: [phone] * Full Code (Latest Code Status on File) Date Activated Date Inactivated Comments 11/21/2024 11:30 AM 11/22/2024 4:45 AM Care Teams Still Operator Gin Relationship Specialty Start Date End Date Yolanda Dougherty MD PCP - General Family Medicine 03/22/24 Jean Trujillo DO [address] [place] [address] MEDICAL ONCOLOGY, [facility] [address] [place] [address] Medical Oncologist/Forklift Operator Hematology and Oncology 03/22/24
--- OUTSIDE RECORDS SUMMARY | 2025-02-05 14:30 | XMS_ITS | Encounter Summary ---
Author Organization [facility] Address [address] [place] [address] Phone Care Team Providers Care Interventional Radiology Rn Name Role Phone Yolanda Dougherty MD Primary Care Provider [phone] Jean Trujillo DO Unavailable [phone] Reason for Referral * MRI/CAT/PET Scan (Routine) - Closed Specialty Diagnoses / Procedures Referred By Contac t Referred To Contact Radiology Procedures MRI Brain W WO Contrast Dahiana Agrawal MD [address] [place] [address] Phone: tel: Referral ID Status Reason Start Date Expiration Date Visits Re quested Visits Authorized [id number] Closed 02/01/2025 03/03/2026 1 1 Encounter Details Date Type Department Care Team (Late st Contact Info) Description 02/01/2025 Orders Only [facility] Oncology [facility] [facility] [address] [place] [phone] Dahiana Agrawal MD [address] [place] [address] Social History Tobacco Use Types Packs/Day Years [...] on file 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 Gender Identity Not on file Sexual Orientation Not on file 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 Not on file Not on file Not on nicolas e documented as of this encounter Plan of Treatment Not on file documented as of this encounter Procedures Procedure Name Priority Date/Time Associated Diagnosis Comments MRI BRAIN W WO CONTRAST Schedule Routine, Read Routine (OP Routine) 02/01/2025 4:24 PM CDT documented in this encounter Results * MRI Brain W WO Contrast (02/01/2025 4:24 PM CDT) Anatomical Region Laterality Modality Head and Neck N/A Magnetic Resonan ce Historical Provider MD HARO MRI PROCEDURES Final Result documented in this encounter Visit Diagnoses Not on filedocumented in this encounter Care Teams Interventional Radiology Rn Relationship Specialty Start Date End Date Yolanda Dougherty MD PCP - General Family Medicine 03/22/24 Jean Trujillo DO [address] [place] [address] MEDICAL ONCOLOGY, [address] [address] Medical Oncologist/It Program Engagement Director Hematology and Oncology 03/22/24 documented as of this encounter
--- OUTSIDE RECORDS SUMMARY | 2025-02-05 14:30 | XMS_ITS | Encounter Summary ---
Author Organization [facility] Address [address] [place] [address] Phone Care Team Providers Care Motion Picture Narrator Name Role Phone Yolanda Dougherty MD Primary Care Provider [phone] eJan Trujillo DO Unavailable [phone] Encounter Details Date Type Department Care Team (Late st Contact Info) Description 02/05/2025 Telephone [facility] Oncology [address] [facility] [address] [place] [address] Unique Moya CMA Social History Tobacco Use Types Packs/Day Years [...] on file 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 Gender Identity Not on file Sexual Orientation Not on file 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 Not on file Not on nicolas e documented as of this encounter Miscellaneous Notes * Telephone Encounter - Unique Moya CMA - 02/05/2025 11:09 AM CDT Called patient spouse, advised him Dr Trujillo would like him to take her to the ER at [place]; hestated he would not be able to get her out of the bedroom, advised he call EMS He verbalized understanding and appreciation for the call * Telephone Encounter - Unique Moya CMA - 02/05/2025 11:08 AM CDT ----- Message from Nurse Fanny Fountain sent at 02/05/2025 10:56 AM CDT ----- Have her go into the ER at [place] ----- Message ----- From: Unique Moya CMA Sent: 02/05/2025 9:15 AM CDT To: Fanny Sibley RN Patient spouse called, he is concerned about patient behavior and how he will take care of her; he said he is a big man but cannot pick her up; she was in the bathroom last night and issues with getting her back up and dressed; she also urinated in bed, takes her shirt off, not taking her meds He is not sure how he can even get her to the car and to the radiation oncology visits or for her follow-up with Dr Trujillo on 02/07/2025 I saw a note in the chart that Destinee was looking into some home help; I discussed that with him, Hedoesn't think someone coming into the home will be useful either. He said they won't be able to pick her up and get her to take her meds on her own, he has to make her take them. documented in this encounter Plan of Treatment Not on file documented as of this encounter Visit Diagnoses Not on filedocumented in this encounter Care Teams Motion Picture Narrator Relationship Specialty Start Date End Date Yolanda Dougherty MD PCP - General Family Medicine 03/22/24 Jean Trujillo DO [address] [place] [address] MEDICAL ONCOLOGY, [address] [address] Medical Oncologist/Fruit Farmworker Hematology and Oncology 03/22/24 documented as of this encounter
[2025-02-05 14:44] LABS: Glucose Point of Care 98 mg/dl (65-105)
[2025-02-05 14:47] LABS: Hematocrit 40.4 % (37.0-47.0); Hemoglobin 12.8 g/dL (12.0-15.0); Mean Corpuscular HGB Conc 31.7 g/dl (32-36); Mean Corpuscular Hemoglobin 31.1 pg (26-34); Mean Corpuscular Volume 98.3 fl (80-100); Mean Platelet Volume 10.8 fl (7.4-10.4); Platelet Count Result 198 k/mm3 (150-375); Red Blood Count 4.11 M/mm3 (4.2-5.4); Red Cell Distribution Width 20.7 % (11.5-14.5); White Blood Count 12.3 K/mm3 (4.5-10.0)
[2025-02-05 14:57] LABS: INR 1.1; Prothrombin Time 14.3 Seconds (11.1-14.7)
[2025-02-05 14:58] LABS: Partial Thromboplastin Time 20.4 Seconds (22.3-36.8)
[2025-02-05 15:05] LABS: Alanine Aminotransferase 22 U/L (6-35); Albumin Level 3.8 g/dL (3.5-5.1); Alkaline Phosphatase 94 U/L (38-126); Anion Gap 8 mmol/L (4-12); Aspartate Amino Transferase 29 U/L (14-36); Bilirubin,Total 1.5 mg/dL (0.2-1.3); Blood Urea Nitrogen 38 mg/dL (7-17); Calcium 9.6 mg/dL (8.4-10.2); Carbon Dioxide 30 mmol/L (22-30); Chloride 104 mmol/L (98-107); Estimated CRCL calculation 31 ml/min; Estimated Glomerular Filt Rate 47; Glucose 97 mg/dL (65-110); Potassium 4.6 mmol/L (3.4-5.0); Sodium 142 mmol/L (137-145)
--- OUTSIDE RECORDS SUMMARY | 2025-02-05 15:08 | XMS_ITS | Clinical Summary ---
Author Organization [facility] [address] Address [address] [place] [address] Care Team Providers Care Vault Teller Name Role Phone Yolanda Dougherty MD Primary Care Provider [phone] CassandraJean simpson DO Unavailable [phone] Allergies No known active allergies Medications levothyroxine [...] from 03/31/2024:Stage IIIC(cT4b, cN0(sn), cM0, G3, ER-, ID-, HER2-) - Signed by Jean Trujillo DO on 07/11/2024 Encounters Date Type Department Care Team Description 02/05/2025 Telephone [facility] [address] [place] [address] [place] [phone] Unique Moya CMA 02/02/2025 Social Work [facility] On[facility] [address] [place] [address] [address] [place] [phone] Destinee Fernandez LCSW 02/02/2025 Telephone [facility] [address] [place] [address] [address] [place] [phone] Unique Moya, CLARENCE 02/01/2025 Documentation [facility] [address] [place] [address] [address] [place] [phone] Jean Trujillo DO 02/01/2025 Orders Only [facility] [address] [place] [address] [address] [place] [phone] ProviderDahiana MD 02/01/2025 Telephone [facility] [address] [place] [address] [address] [place] [phone] Aminata Johnson, CLARENCE 01/19/2025 11:00 AM ORTHOPEDICS PEDIATRIC PHYSICIAN Clinical Support [facility] at [address] [address] Malignant neoplasm of lower-inner quadrant of right breast of female, estrogen receptor negative (HCC); Dehydration 01/19/2025 9:30 AM ORTHOPEDICS PEDIATRIC PHYSICIAN Clinical Support [facility] Medical Office Building 2 Radiation Oncology [address] [place] [id number] Normochromic anemia (Primary Dx); Malignant neoplasm of lower-inner quadrant of right breast of female, estrogen receptor negative (HCC) 01/19/2025 Telephone [facility] [address] [place] [phone] Aminata Johnson, CLARENCE 01/19/2025 Orders Only [facility] [address] [place] [phone] Jean Trujillo, Malignant neoplasm of lower-inner quadrant of right breast of female, estrogen receptor negative (HCC) (Primary Dx); 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); Confusion 01/18/2025 Telephone [facility] [address] [place] [address] [address] [place] [phone] ElizabethAminata bowenCLARENCE 01/05/2025 12:00 PM ORTHOPEDICS PEDIATRIC PHYSICIAN Office Visit [facility] [address] [place] [address] [address] [place] [phone] Jean Trujillo, Malignant neoplasm of lower-inner quadrant of right breast of female, estrogen receptor negative (HCC) (Primary Dx); 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); Hypokalemia 01/01/2025 10:30 AM ORTHOPEDICS PEDIATRIC PHYSICIAN Lab [facility] Outpatient Lab at [address] [phone] Malignant neoplasm of lower-inner quadrant of right breast of female, estrogen receptor negative (HCC) (Primary Dx) 01/01/2025 10:19 AM ORTHOPEDICS PEDIATRIC PHYSICIAN - 01/01/2025 11:59 PM ORTHOPEDICS PEDIATRIC PHYSICIAN Hospital Encounter [address] [address] Malignant neoplasm of lower-inner quadrant of right breast of female, estrogen receptor negative (HCC); Lymphadenopathy, mediastinal Discharge Disposition: Discharge to home or self care 12/01/2024 9:45 AM ORTHOPEDICS PEDIATRIC PHYSICIAN Office Visit [facility] [address] [place] [address] [address] [place] [phone] Jean Trujillo DO Malignant neoplasm of lower-inner quadrant of right breast of female, estrogen receptor negative (HCC) (Primary Dx); Lymphadenopathy, mediastinal; Encounter for person encountering health services; Presence of heart assist device (HCC); 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); Malignant neoplasm metastatic to right lung (HCC) 11/23/2024 Telephone [facility] [address] [place] [address] Hanna Arnold RN 11/21/2024 11:56 AM ORTHOPEDICS PEDIATRIC PHYSICIAN - 11/21/2024 11:59 PM ORTHOPEDICS PEDIATRIC PHYSICIAN Hospital Encounter [facility] Diagnostic Imaging [address] [place] [address] Discharge Disposition: Discharge to home or self care 11/21/2024 7:43 AM ORTHOPEDICS PEDIATRIC PHYSICIAN - 11/21/2024 11:59 PM ORTHOPEDICS PEDIATRIC PHYSICIAN Hospital Encounter [facility] [address] [place] [address] Rn, Mhb Rad Malignant neoplasm of lower-inner quadrant of right breast of female, estrogen receptor negative (HCC); Pleural mass; Encounter for biopsy; Encounter for therapeutic drug monitoring Discharge Disposition: Discharge to home or self care 11/17/2024 Orders Only [facility] [address] [place] [phone] Jean Trujillo, Malignant neoplasm of lower-inner quadrant of right breast of female, estrogen receptor negative (HCC) (Primary Dx); Pleural mass; Encounter for biopsy; Encounter for therapeutic drug monitoring 11/17/2024 Documentation [facility] [address] [place] [phone] Jean Trujillo DO 11/13/2024 Telephone [facility] [address] [place] [phone] Fanny Sibley RN 11/10/2024 11:51 AM ORTHOPEDICS PEDIATRIC PHYSICIAN - 11/10/2024 11:59 PM ORTHOPEDICS PEDIATRIC PHYSICIAN Hospital Encounter 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 Not on file Not on file Not on nicolas e Obstetrics History Last Filed Vital Signs Vital Sign Reading Time Taken Comments Blood Pressure 116/80 01/05/2025 11:59 AM ORTHOPEDICS PEDIATRIC PHYSICIAN Pulse 96 01/05/2025 11:59 AM ORTHOPEDICS PEDIATRIC PHYSICIAN Temperature 36.4 C (97.5 F) 01/05/2025 11:59 AM ORTHOPEDICS PEDIATRIC PHYSICIAN Respiratory Rate 18 01/05/2025 11:5 9 AM ORTHOPEDICS PEDIATRIC PHYSICIAN Oxygen Saturation 99% 01/05/2025 11: 59 AM ORTHOPEDICS PEDIATRIC PHYSICIAN Inhaled Oxygen Concentration - - Weight 59.7 kg (131 lb 9.8 oz) 01/05/20 25 11:59 AM ORTHOPEDICS PEDIATRIC PHYSICIAN with shoes Height 160 cm (5' 3) 11/21/2024 8:09 AM ORTHOPEDICS PEDIATRIC PHYSICIAN Body Mass Index 23.31 11/21/2024 8:09 AM ORTHOPEDICS PEDIATRIC PHYSICIAN Plan of Treatment Health Maintenance Due Date [...] 11/22/2015, 08/01/2013 Medical Devices Implanted Type Area Hoop Expander Device Identifier Shelf Expiration Date Model / Serial / Lot Right Knee Replacement Other - see comments Right: Knee Procedures Procedure Name Priority Date/Time Associated Diagnosis Comments MRI BRAIN W WO CONTRAST Schedule Routine, Read Routine (OP Routine) 02/01/2025 4:24 PM CDT EGFR Routine 01/19/2025 10:55 AM ORTHOPEDICS PEDIATRIC PHYSICIAN Malignant neoplasm of lower-inner quadrant of right breast of female, estrogen receptor negative (HCC) Dehydration DIFFERENTIAL AUTO Routine 01/19/2025 10: 55 AM ORTHOPEDICS PEDIATRIC PHYSICIAN Malignant neoplasm of lower-inner quadrant of right breast of female, estrogen receptor negative (HCC) Dehydration CBC WITH AUTO DIFFERENTIAL Routine 01/19/2025 10:55 AM ORTHOPEDICS PEDIATRIC PHYSICIAN Malignant neoplasm of lower-inner quadrant of right breast of female, estrogen receptor negative (HCC) Dehydration COMPREHENSIVE METABOLIC PANEL Routine 01/19/2025 10:55 AM ORTHOPEDICS PEDIATRIC PHYSICIAN Malignant neoplasm of lower-inner quadrant of right breast of female, estrogen receptor negative (HCC) Dehydration MAGNESIUM Routine 01/19/2025 10:55 AM ORTHOPEDICS PEDIATRIC PHYSICIAN Malignant neoplasm of lower-inner quadrant of right breast of female, estrogen receptor negative (HCC) Dehydration EGFR Routine 01/01/2025 10:19 AM ORTHOPEDICS PEDIATRIC PHYSICIAN Malignant neoplasm of lower-inner quadrant of right breast of female, estrogen receptor negative (HCC) Lymphadenopathy, mediastinal DIFFERENTIAL AUTO Routine 01/01/2025 10: 19 AM ORTHOPEDICS PEDIATRIC PHYSICIAN Malignant neoplasm of lower-inner quadrant of right breast of female, estrogen receptor negative (HCC) Lymphadenopathy, mediastinal COMPREHENSIVE METABOLIC PANEL Routine 01/01/2025 10:19 AM ORTHOPEDICS PEDIATRIC PHYSICIAN Malignant neoplasm of lower-inner quadrant of right breast of female, estrogen receptor negative (HCC) Lymphadenopathy, mediastinal CBC WITH AUTO DIFFERENTIAL Routine 01/01/2025 10:19 AM ORTHOPEDICS PEDIATRIC PHYSICIAN Malignant neoplasm of lower-inner quadrant of right breast of female, estrogen receptor negative (HCC) Lymphadenopathy, mediastinal [facility] XT DNA AND RNA SOLID TUMOR Routine 12/01/2024 10:35 AM ORTHOPEDICS PEDIATRIC PHYSICIAN Malignant neoplasm of lower-inner quadrant of right breast of female, estrogen receptor negative (HCC) Malignant neoplasm metastatic to right lung (HCC) XR CHEST 1 VIEW Timed 11/21/2024 12:[address] P[address]IATRIC PH[address] CT NEEDLE BIOPSY LUNG RIGHT Schedule Routine, Read Routine (OP Routine) 11/21/2024 10:54 AM ORTHOPEDICS PEDIATRIC PHYSICIAN Malignant neoplasm of lower-inner quadrant of right breast of female, estrogen receptor negative (HCC) Pleural mass Encounter for biopsy SURGICAL PATHOLOGY Routine 11/21/2024 10 :16 AM ORTHOPEDICS PEDIATRIC PHYSICIAN Malignant neoplasm of lower-inner quadrant of right breast of female, estrogen receptor negative (HCC) Pleural mass Encounter for biopsy DIFFERENTIAL AUTO Routine 11/21/2024 8:1 3 AM ORTHOPEDICS PEDIATRIC PHYSICIAN Malignant neoplasm of lower-inner quadrant of right breast of female, estrogen receptor negative (HCC) Encounter for biopsy Encounter for therapeutic drug monitoring CBC WITH AUTO DIFFERENTIAL Routine 11/21/2024 8:13 AM ORTHOPEDICS PEDIATRIC PHYSICIAN Malignant neoplasm of lower-inner quadrant of right breast of female, estrogen receptor negative (HCC) Encounter for biopsy Encounter for therapeutic drug monitoring APTT Routine 11/21/2024 8:13 AM ORTHOPEDICS PEDIATRIC PHYSICIAN Malignant neoplasm of lower-inner quadrant of right breast of female, estrogen receptor negative (HCC) Encounter for biopsy Encounter for therapeutic drug monitoring PROTIME-INR Routine 11/21/2024 8:13 AM ORTHOPEDICS PEDIATRIC PHYSICIAN Malignant neoplasm of lower-inner quadrant of right breast of female, estrogen receptor negative (HCC) Encounter for biopsy Encounter for therapeutic drug monitoring PET/CT FDG SKULL TO THIGH Schedule Routine, Read Routine (OP Routine) 11/10/2024 1:35 PM ORTHOPEDICS PEDIATRIC PHYSICIAN Malignant neoplasm of lower-inner quadrant of right breast of female, estrogen receptor negative (HCC) Lymphadenopathy, mediastinal Triple negative breast cancer (HCC) POCT GLUCOSE DEVICE Routine 11/10/2024 1 2:05 PM ORTHOPEDICS PEDIATRIC PHYSICIAN from Last 3 Months Results * MRI Brain W WO Contrast (02/01/2025 4:24 PM CDT) Anatomical Region Laterality Modality Head and Neck N/A Magnetic Resonan ce us Historical Provider MD HARO MRI PROCEDURES Final Result * eGFR (01/19/2025 10:55 AM ORTHOPEDICS PEDIATRIC PHYSICIAN) eGFR 66 >=60 mL/min/1. 73 m2 Comment: [...] was last reviewed 2021. Testing performed by: [facility], [address] [place] [address]., [address] Blood 01/19/2025 10:5 5 AM ORTHOPEDICS PEDIATRIC PHYSICIAN 01/19/2025 11:09 AM ORTHOPEDICS PEDIATRIC PHYSICIAN us Jean Trujillo DO LAB BLOOD ORDERABLES Final R esult [facility] [address] [facility] Department [place] [address] * Differential, auto (01/19/2025 10:55 AM ORTHOPEDICS PEDIATRIC PHYSICIAN) Neutrophil abs 4.7 1.5 - 6.5 K/cumm Comment:Testing performed by : [address], [place]., [address] Imm gran abs 0.0 0.0 - 0.1 K/cumm [facility] Comment:Testing performed by : [address], [place]., [address] Lymphocyte abs 0.8 0.8 - 3.3 K/cumm [facility] Comment:Testing performed by : [address], [place]., [address] Monocyte abs 0.5 0.2 - 0.8 K/cumm [facility] Comment:Testing performed by : [address], [place]., [address] Eosinophil abs 0.1 0.0 - 0.5 K/cumm [facility] Comment:Testing performed by : [address] [address] Basophil abs 0.0 0.0 - 0.1 K/cumm [facility] Comment:Testing performed by : [address] [address] Neutrophil pct 77.9 % [facility] Comment: Interpretive Data Percent cell count reference ranges are not reported, since discordance with absolute values may lead to misinterpretation of CBC data. Current Interpretive Data was last revised on 2018. Testing performed by: [address] [address] Imm gran pct 0.5 % [facility] Comment: Interpretive Data Percent cell count reference ranges are not reported, since discordance with absolute values may lead to misinterpretation of CBC data. Current Interpretive Data was last revised on 2018. Testing performed by: [address] [address] Lymphocyte pct 12.7 % [facility] Comment: Interpretive Data Percent cell count reference ranges are not reported, since discordance with absolute values may lead to misinterpretation of CBC data. Current Interpretive Data was last revised on 2018. Testing performed by: [address] [address] Monocyte pct 7.9 % [facility] Comment: Interpretive Data Percent cell count reference ranges are not reported, since discordance with absolute values may lead to misinterpretation of CBC data. Current Interpretive Data was last revised on 2018. Testing performed by: [address] [address] Eosinophil pct 0.8 % [facility] Comment: Interpretive Data Percent cell count reference ranges are not reported, since discordance with absolute values may lead to misinterpretation of CBC data. Current Interpretive Data was last revised on 2018. Testing performed by: [address] [address] Basophil pct 0.2 % [facility] Comment: Interpretive Data Percent cell count reference ranges are not reported, since discordance with absolute values may lead to misinterpretation of CBC data. Current Interpretive Data was last revised on 2018. Testing performed by: [address] [address] Blood 01/19/2025 10:5 5 AM ORTHOPEDICS PEDIATRIC PHYSICIAN 01/19/2025 11:09 AM ORTHOPEDICS PEDIATRIC PHYSICIAN us Jean Trujillo DO LAB BLOOD ORDERABLES Final R esult [facility] [address] [facility] Department [place] [address] * (ABNORMAL) CBC with auto differential (01/19/2025 10:55 AM ORTHOPEDICS PEDIATRIC PHYSICIAN) Pathologist [facility] WBC 6.0 3.8 - 9.9 K/cumm Comment:Testing performed by : [address] [address] Hgb 12.0 11.9 - 15.5 g/dL [facility] Comment:Testing performed by : [address] [address] Hct 35.2(L) 35.6 - 45.5 % [facility] Comment:Testing performed by : [address] [address] Plt 227 150 - 400 K/cumm [facility] Comment:Testing performed by : [address] [address] MPV 10.1 9.1 - 12.3 fL [facility] Comment:Testing performed by : [address] [address] RBC 3.91 3.90 - 5.20 M/cumm [facility] Comment:Testing performed by : [address] [address] MCV 90.0 81.3 - 96.4 fL [facility] Comment:Testing performed by : [address] [address] MCH 30.7 27.1 - 33.3 pg [facility] Comment:Testing performed by : [address] [address] MCHC 34.1 32.3 - 35.7 g/dL [facility] Comment:Testing performed by : [address] [address] RDW CV 18.9(H) 11.1 - 14.9 % [facility] Comment:Testing performed by : [address] [address] RDW SD 55.0(H) 35.7 - 48.1 fL [facility] Comment:Testing performed by : [address] [address] NRBC abs 0.00 0.00 - 0.01 K/cumm [facility] Comment:Testing performed by : [address] [address] Blood 01/19/2025 10:5 5 AM ORTHOPEDICS PEDIATRIC PHYSICIAN 01/19/2025 11:09 AM ORTHOPEDICS PEDIATRIC PHYSICIAN us Jean Trujillo DO LAB BLOOD ORDERABLES Final R esult [facility] [address] [facility] Department [place] [address] * Magnesium (01/19/2025 10:55 AM ORTHOPEDICS PEDIATRIC PHYSICIAN) [facility] Magnesium 2.0 1.4 - 2.5 mg/dL Comment:Testing performed by : [address] [place]., [address] Blood 01/19/2025 10:5 5 AM ORTHOPEDICS PEDIATRIC PHYSICIAN 01/19/2025 11:09 AM ORTHOPEDICS PEDIATRIC PHYSICIAN Jean Trujilol DO LAB BLOOD ORDERABLES Final R esult [facility] [address] [facility] Department [place] [address] * Comprehensive metabolic panel (01/19/2025 10:55 AM ORTHOPEDICS PEDIATRIC PHYSICIAN) Sodium 139 135 - 145 mmol/L Comment:Testing performed by : [address] [address] Potassium, pl 3.6 3.3 - 4.9 mmol/L [facility] Comment:Testing performed by : [address] [address] Chloride 102 97 - 110 mmol/L [facility] Comment:Testing performed by : [address] [address] CO2 24 22 - 32 mmol/L [facility] Comment:Testing performed by : [address] [address] Anion gap 13 2 - 15 mmol/L [facility] Comment:Testing performed by : [address] [address] BUN 11 6 - 25 mg/dL [facility] Comment:Testing performed by : [address] [address] Creatinine 0.90 0.60 - 1.10 mg/dL [facility] Comment:Testing performed by : [address] [address] Glucose 104 70 - 199 mg/dL [facility] [...] was last revised 2022. Testing performed by: [address] [address] Calcium 9.6 8.5 - 10.3 mg/dL [facility] Comment:Testing performed by : [address] [address] Bilirubin, total 0.9 0.1 - 1.2 mg/dL [facility] Comment:Testing performed by : [address] [address] Protein, pl 6.8 6.5 - 8.5 g/dL [facility] Comment:Testing performed by : [address] [address] Albumin 3.8 3.5 - 5.0 g/dL [facility] Comment:Testing performed by : [address] [address] Alk phos 77 40 - 130 Units/L [facility] Comment:Testing performed by : [address] [address] ALT 7 7 - 45 Units/L [facility] Comment:Testing performed by : [address] [address] AST 17 10 - 45 Units/L [facility] Comment:Testing performed by : [address] [address] Blood 01/19/2025 10:5 5 AM ORTHOPEDICS PEDIATRIC PHYSICIAN 01/19/2025 11:09 AM ORTHOPEDICS PEDIATRIC PHYSICIAN us Jean Trujillo DO LAB BLOOD ORDERABLES Final R esult [facility] [address] [facility] Department of Laboratories [place], [place] [id number] * (ABNORMAL) eGFR (01/01/2025 10:19 AM ORTHOPEDICS PEDIATRIC PHYSICIAN) [facility] eGFR 57(L) >=60 mL/min/1. 73 m2 [...] reviewed 2021. Blood 01/01/2025 10:1 9 AM ORTHOPEDICS PEDIATRIC PHYSICIAN 01/01/2025 3:48 PM ORTHOPEDICS PEDIATRIC PHYSICIAN Jean Trujillo DO LAB BLOOD ORDERABLES Final R esult [facility] [address] Department of Laboratories [place], [place] [id number] * Differential, auto (01/01/2025 10:19 AM ORTHOPEDICS PEDIATRIC PHYSICIAN) Pathologist [facility] Neutrophil abs 3.9 1.5 - 6.5 K/cumm Imm gran abs 0.0 0.0 - 0.1 K/cumm [facility] Lymphocyte abs 1.1 0.8 - 3.3 K/cumm [facility] Monocyte abs 0.7 0.2 - 0.8 K/cumm [facility] Eosinophil abs 0.1 0.0 - 0.5 K/cumm [facility] Basophil abs 0.0 0.0 - 0.1 K/cumm [facility] Neutrophil pct 67.2 % [facility] Comment: Interpretive Data Percent cell count reference ranges are not reported, since discordance with absolute values may lead to misinterpretation of CBC data. Current Interpretive Data was last revised on 2018. Imm gran pct 0.3 % [facility] Comment: Interpretive Data Percent cell count reference [...] on 2018. Blood 01/01/2025 10:1 9 AM ORTHOPEDICS PEDIATRIC PHYSICIAN 01/01/2025 3:31 PM ORTHOPEDICS PEDIATRIC PHYSICIAN us Jean Trujillo DO LAB BLOOD ORDERABLES Final R esult [facility] [address] Department [place] [address] * (ABNORMAL) CBC with auto differential (01/01/2025 10:19 AM ORTHOPEDICS PEDIATRIC PHYSICIAN) WBC 5.8 3.8 - 9.9 K/cumm Hgb 13.0 11.9 - 15.5 g/dL [facility] Hct 40.4 35.6 - 45.5 % [facility] Plt 270 150 - 400 K/cumm [facility] MPV 10.5 9.1 - 12.3 fL [facility] RBC 4.12 3.90 - 5.20 M/cumm [facility] MCV 98.1(H) 81.3 - 96.4 fL [facility] MCH 31.6 27.1 - 33.3 pg [facility] MCHC 32.2(L) 32.3 - 35.7 g/dL [facility] RDW CV 18.1(H) 11.1 - 14.9 % [facility] RDW SD 53.9(H) 35.7 - 48.1 fL [facility] NRBC abs 0.00 0.00 - 0.01 K/cumm [facility] Blood 01/01/2025 10:1 9 AM ORTHOPEDICS PEDIATRIC PHYSICIAN 01/01/2025 3:31 PM ORTHOPEDICS PEDIATRIC PHYSICIAN us Jean Trujillo DO LAB BLOOD ORDERABLES Final R esult [facility] [address] Department [place] [address] * (ABNORMAL) Comprehensive metabolic panel (01/01/2025 10:19 AM ORTHOPEDICS PEDIATRIC PHYSICIAN) Sodium 139 135 - 145 mmol/L Potassium, [...] [facility] Blood 01/01/2025 10:1 9 AM ORTHOPEDICS PEDIATRIC PHYSICIAN 01/01/2025 3:31 PM ORTHOPEDICS PEDIATRIC PHYSICIAN Jean Trujillo DO LAB BLOOD ORDERABLES Final R esult [facility] [address] Department [place] [address] * [facility] xT DNA and RNA - Tumor Only (12/01/2024 10:35 AM ORTHOPEDICS PEDIATRIC PHYSICIAN) Reason for Study To identify somatic and germline mutations relevant to patient's cancer. 12/23/2024 6:14 PM ORTHOPEDICS PEDIATRIC PHYSICIAN [facility] Genetic Diseases Assessed Cancer 12/23/2024 6:14 PM ORTHOPEDICS PEDIATRIC PHYSICIAN [facility] Description of Ranges of DNA Sequences Examined 648 gene panel 12/23/2024 6:14 PM ORTHOPEDICS PEDIATRIC PHYSICIAN [facility] Overall Interpretation positive 12/23/2024 6:14 PM ORTHOPEDICS PEDIATRIC PHYSICIAN [facility] MSI Stable 12/23/2024 6:14 PM ORTHOPEDICS PEDIATRIC PHYSICIAN [facility] TMB 6.3 m/MB 12/23/2024 6:14 PM ORTHOPEDICS PEDIATRIC PHYSICIAN [facility] [email or web address] 12/23/2024 6:14 PM ORTHOPEDICS PEDIATRIC PHYSICIAN [facility] Comment:[facility] link MMR Overall Result normal 12/23/2024 6:14 PM ORTHOPEDICS PEDIATRIC PHYSICIAN [facility] MLH1 Presence or Absence present 12/23/2024 6:14 PM ORTHOPEDICS PEDIATRIC PHYSICIAN [facility] PMS2 Presence or Absence present 12/23/2024 6:14 PM ORTHOPEDICS PEDIATRIC PHYSICIAN [facility] MSH2 Presence or Absence present 12/23/2024 6:14 PM ORTHOPEDICS PEDIATRIC PHYSICIAN [facility] MSH6 Presence or Absence present 12/23/2024 6:14 PM ORTHOPEDICS PEDIATRIC PHYSICIAN [facility] PD-L1 Interpretation by 22C3 negative 12/23/2024 6:14 PM ORTHOPEDICS PEDIATRIC PHYSICIAN [facility] PD-L1 (22C3) Combined Positive Score 5 12/23/2024 6:14 PM ORTHOPEDICS PEDIATRIC PHYSICIAN [facility] PD-L1 (22C3) Tumor Proportion Score 3 % 12/23/2024 6:14 PM ORTHOPEDICS PEDIATRIC PHYSICIAN [facility] Pertinent Negatives ERBB2 (HER2), ESR1, PIK3CA 12/23/2024 6:14 PM ORTHOPEDICS PEDIATRIC PHYSICIAN [facility] Low Coverage Regions EPHB2, KDM5D, RXRA, TGFBR1 12/23/2024 6:14 PM ORTHOPEDICS PEDIATRIC PHYSICIAN [facility] Therapy Count 1 12/23/2024 6:14 PM ORTHOPEDICS PEDIATRIC PHYSICIAN [facility]: Potential Therapy 1 Gene: [id number]^PTEN^HGNC Variant: [id number] Match Type: snvIndel Match Type Description: PTEN p.I203fs Agent: Capivasertib + Fulvestrant Drug Class: Combination (Addison-AKT Inhibitor + Estrogen Receptor Antagonist) Tissue: Breast Cancer Association: Response Evidence Status: Consensus Evidence ID: [id number] Variant: [id number] Label: FDA Off Label FDA Approved?: Yes On label?: No 12/23/2024 6:14 PM ORTHOPEDICS PEDIATRIC PHYSICIAN [facility] Trial Count 3 12/23/2024 6:14 PM ORTHOPEDICS PEDIATRIC PHYSICIAN [facility] [facility]: Clinical Trial Match 1 Clinical Trial NCT ID: [id number] Clinical Trial Title: Pemetrexed Response in Relation to Tumor Alterations of Gene Status for the Treatment of Patients With Metastatic Urothelial Bladder Cancer and Other Solid Tumors Clinical Trial URL: [email or web address] Clinical Phase: Phase 2 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 Clinical Trial Distance and Location: [address] [place] [address] 12/23/2024 6:14 PM ORTHOPEDICS PEDIATRIC PHYSICIAN [facility]: Clinical Trial Match 2 Clinical Trial NCT ID: [id number] Clinical Trial Title: [id number] With or Without Bevacizumab and Paclitaxel for the Treatment of Advanced Solid Tumors Clinical Trial URL: [email or web address] Clinical Phase: Phase 1 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 Clinical Trial Distance and Location: [address], [place], [place] 12/23/2024 6:14 PM ORTHOPEDICS PEDIATRIC PHYSICIAN [facility]: Clinical Trial Match 3 Clinical Trial NCT ID: [id number] Clinical Trial Title: Study of the CDK4/6 Inhibitor Palbociclib ([id number]) in Combination With the PI3K/mTOR Inhibitor Gedatolisib ([id number]) for Patients With Advanced Squamous Cell Lung, Pancreatic, Head & Neck and Other Solid Tumors Clinical Trial URL: [email or web address] Clinical Phase: Phase 1 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 No gene rearrangements nor reportable altered splicing events were identified from RNA sequencing. 12/23/2024 6:14 PM ORTHOPEDICS PEDIATRIC PHYSICIAN [facility] Germline Variant Note No normal sample was received, therefore tumor/normal matched analysis was not performed. 12/23/2024 6:14 PM ORTHOPEDICS PEDIATRIC PHYSICIAN [facility] HLA-A Typing A*02:01,A*29:02 025 6:14 PM ORTHOPEDICS PEDIATRIC PHYSICIAN [facility] HLA-B Typing B*51:01,B*51:01 025 6:14 PM ORTHOPEDICS PEDIATRIC PHYSICIAN [facility] HLA-C Typing C*01:02,C*14:02 025 6:14 PM ORTHOPEDICS PEDIATRIC PHYSICIAN [facility] HLA-A Ambiguous Alleles Yes 12/23/2024 6:14 PM ORTHOPEDICS PEDIATRIC PHYSICIAN [facility] HLA-B Ambiguous Alleles Yes 12/23/2024 6:14 PM ORTHOPEDICS PEDIATRIC PHYSICIAN [facility] HLA-C Ambiguous Alleles Yes 12/23/2024 6:14 PM ORTHOPEDICS PEDIATRIC PHYSICIAN [facility] HLA-A Sample Type Tumor Only 025 6:14 PM ORTHOPEDICS PEDIATRIC PHYSICIAN [facility] HLA-B Sample Type Tumor Only 025 6:14 PM ORTHOPEDICS PEDIATRIC PHYSICIAN [facility] HLA-C Sample Type Tumor Only 025 6:14 PM ORTHOPEDICS PEDIATRIC PHYSICIAN [facility] Tissue 12/01/2024 10:3 5 AM ORTHOPEDICS PEDIATRIC PHYSICIAN 12/08/2024 2:27 PM ORTHOPEDICS PEDIATRIC PHYSICIAN Narrative This result has genomic variants that were not included in this document. Jean Trujillo DO LAB GENETIC TESTING Final Re sult [facility] [address], [address] [phone] [facility] [address], [address] [place] [address] * XR Chest 1 Vw - Portable (11/21/2024 12:15 PM ORTHOPEDICS PEDIATRIC PHYSICIAN) Anatomical Region Laterality Modality Body, Chest N/A Computed Radiogr aphy 11/21/2024 12:1 8 PM ORTHOPEDICS PEDIATRIC PHYSICIAN Narrative 11/21/2024 12:30 PM ORTHOPEDICS PEDIATRIC PHYSICIAN EXAM DESCRIPTION: XR CHEST 1 VIEW . [...] signed by Hussain MAC T: Report ID: [id number] Reading Location: [id number] Procedure Note Hussain Sanchez MD - 11/21/2024 [...] Hussain Sanchez M.D. SN T: Report ID: [id number] Reading Location: [id number] Hussain Sanchez MD IMG XR PROCEDURES Final Result * CT Lung Needle Biopsy Right (11/21/2024 10:54 AM ORTHOPEDICS PEDIATRIC PHYSICIAN) Anatomical Region Laterality Modality Lung N/A Computed Tomogra phy, Computed Radiography 11/21/2024 11:0 6 AM ORTHOPEDICS PEDIATRIC PHYSICIAN Narrative 11/21/2024 11:07 AM ORTHOPEDICS PEDIATRIC PHYSICIAN EXAM DESCRIPTION: CT NEEDLE BIOPSY LUNG RIGHT [...] Hussain Sanchez M.D. SN T: Report ID: [id number] Reading Location: [id number] Procedure Note Hussain Sanchez MD - 11/21/2024 [...] signed by Hussain MAC T: Report ID: [id number] Reading Location: [place] [address] Jean Trujillo DO IMG CT PROCEDURES Final Resu lt * Surgical pathology (11/21/2024 10:16 AM ORTHOPEDICS PEDIATRIC PHYSICIAN) Tissue (Lung Biopsy) 11/21/2024 10:16 AM ORTHOPEDICS PEDIATRIC PHYSICIAN Narrative PATHOLOGY [facility] - 11/30/2024 3:58 PM ORTHOPEDICS PEDIATRIC PHYSICIAN [facility] Department of Pathology [address] [place] [address] Note to Patients: This report may contain [...] : 1945 (Age: 79) Gender: F Address: [address] [place] [address] Hospital #: [id number] Service: DEFAULT Location: Patient Type: [facility] ANCILLARY Taken: 11/21/2024 Received: 11/21/2024 Accessioned: [...] Technical Notes Estrogen receptor (ER), progesterone receptor (ID), and HER2 were evaluated by immunohistochemistry (IHC) by morphometric analysis in routine formalin-fixed paraffin-embedded tissue using a proprietary polymer- based detection system and instrumentation by [employer] per clothing sorter's recommendation. The IHC results for ER (antibody SP1) and ID (antibody 1E2) were quantified and interpreted (positive vs negative) using the Jossie score (total score range = 0 to 8; positive >2) (see: Mod Pathol 11:155, 1998; J Clin Oncol 17:1474, 1998; Mod Pathol 17:1545, 2004; Arch Pathol Lab Med 144:545, 2020). Pathway Her2 is a trademark of [employer] The IHC results for Pathway Her2 [...] a proprietary polymer-based detection system andinstrumentation by [employer] per clothing sorter's recommendation. The index was determined by manual [...] ordered molecular analysis. Materials were forwarded to [facility] where the PD-L1, MMR test will be [...] Testing for PD-L1 was requested by Dr. eJan Trujillo. Block A1 was selected, and sent [...] interpretation for this case was performed at [facility], Department of Surgical Pathology, [address] [facility] [place], [place] [id number], [place] [id number] CLIA # [id number] us Jean Trujillo DO LAB PATHOLOGY ORDERABLES Fin al Result PATHOLOGY [facility] * Differential, auto (11/21/2024 8:13 AM ORTHOPEDICS PEDIATRIC PHYSICIAN) Neutrophil abs 3.8 1.5 - 6.5 K/cumm Imm gran abs 0.0 0.0 - 0.1 K/cumm [facility] Lymphocyte abs 1.3 0.8 - 3.3 K/cumm [facility] Monocyte abs 0.6 0.2 - 0.8 K/cumm [facility] Eosinophil abs 0.1 0.0 - 0.5 K/cumm [facility] Basophil abs 0.0 0.0 - 0.1 K/cumm [facility] Neutrophil pct 65.0 % [facility] Comment: Interpretive Data Percent cell count reference ranges are not reported, since discordance with absolute values may lead to misinterpretation of CBC data. Current Interpretive Data was last revised on 2018. Imm gran pct 0.3 % [facility] Comment: Interpretive Data Percent cell count reference ranges are not reported, since discordance with absolute values may lead to misinterpretation of CBC data. Current Interpretive Data was last revised on 2018. Lymphocyte pct 22.8 % [facility] Comment: Interpretive Data Percent cell count reference ranges are not reported, since discordance with absolute values may lead to misinterpretation of CBC data. Current Interpretive Data was last revised on 2018. Monocyte pct 9.7 % [facility] Comment: Interpretive Data Percent cell count reference ranges are not reported, since discordance with absolute values may lead to misinterpretation of CBC data. Current Interpretive Data was last revised on 2018. Eosinophil pct 1.7 % [facility] Comment: Interpretive Data Percent cell count reference ranges are not reported, since discordance with absolute values may lead to misinterpretation of CBC data. Current Interpretive Data was last revised on 2018. Basophil pct 0.5 % [facility] Comment: Interpretive Data Percent cell count reference ranges are not reported, since discordance with absolute values may lead to misinterpretation of CBC data. Current Interpretive Data was last revised on 2018. Blood 11/21/2024 8:13 AM ORTHOPEDICS PEDIATRIC PHYSICIAN 11/21/2024 8:17 AM ORTHOPEDICS PEDIATRIC PHYSICIAN Jean Trujillo DO LAB BLOOD ORDERABLES Final R esult [facility] [address] [facility] Department [place] [address] * (ABNORMAL) CBC with auto differential (11/21/2024 8:13 AM ORTHOPEDICS PEDIATRIC PHYSICIAN) WBC 5.8 3.8 - 9.9 K/cumm Hgb 11.3(L) 11.9 - 15.5 g/dL [facility] Hct 35.5(L) 35.6 - 45.5 % [facility] Plt 265 150 - 400 K/cumm [facility] MPV 10.0 9.1 - 12.3 fL [facility] RBC 3.80(L) 3.90 - 5.20 M/cumm [facility] MCV 93.4 81.3 - 96.4 fL [facility] MCH 29.7 27.1 - 33.3 pg [facility] MCHC 31.8(L) 32.3 - 35.7 g/dL [facility] RDW CV 15.9(H) 11.1 - 14.9 % [facility] RDW SD 53.2(H) 35.7 - 48.1 fL [facility] NRBC abs 0.00 0.00 - 0.01 K/cumm [facility] Blood 11/21/2024 8:13 AM ORTHOPEDICS PEDIATRIC PHYSICIAN 11/21/2024 8:17 AM ORTHOPEDICS PEDIATRIC PHYSICIAN Narrative [facility] 11/21/2024 8:22 AM ORTHOPEDICS PEDIATRIC PHYSICIAN Dx codes Z76.89, Z01.818 Jean Trujillo [facility] BLOOD ORDERABLES Final R esult Performing Organization Address [facility] de Phone Number [address] [employer] [address] * aPTT (11/21/2024 8:13 AM ORTHOPEDICS PEDIATRIC PHYSICIAN) Pathologist [facility] aPTT 25 22 - 37 sec Comment: Interpretive data aPTT test has not been evaluated for monitoring heparin therapy. The anti-Xa is the preferred test. Current interpretive data was last revised on 2019. Blood 11/21/2024 8:13 AM ORTHOPEDICS PEDIATRIC PHYSICIAN 11/21/2024 8:17 AM ORTHOPEDICS PEDIATRIC PHYSICIAN Jean Shaffernti [facility] BLOOD ORDERABLES Final [facility] Performing Organization Address [facility] de Phone Number [address] [address] * Protime-INR (11/21/2024 8:13 AM ORTHOPEDICS PEDIATRIC PHYSICIAN) PT 13.2 12.0 - 14.6 sec INR 1.0 0.9 - 1.2 [facility] Comment: Ref Range High Interpretive data Oral anticoagulant therapeutic ranges: Venous thromboembolism prophylaxis or treatment: 2.0-3.0 CARDIOLOGY Standard range: 2.0-3.0 High-intensity range: 2.5-3.5 Refer to indication-specific guidelines for appropriate target ranges for prosthetic heart valve replacement. Current interpretive data was last revised on 2019. Blood 11/21/2024 8:13 AM ORTHOPEDICS PEDIATRIC PHYSICIAN 11/21/2024 8:17 AM ORTHOPEDICS PEDIATRIC PHYSICIAN us Jean LovellVance Cassandra DO LAB BLOOD ORDERABLES Final R esult [facility] [address] [facility] Department [place] [address] * PET/CT FDG Skull to Thigh (11/10/2024 1:35 PM ORTHOPEDICS PEDIATRIC PHYSICIAN) Anatomical Region Laterality Modality N/A Positron Emissio n Tomography (PET) 11/10/2024 4:50 PM ORTHOPEDICS PEDIATRIC PHYSICIAN Narrative 11/12/2024 1:01 PM ORTHOPEDICS PEDIATRIC PHYSICIAN EXAM DESCRIPTION: PET/CT FDG SKULL TO THIGH [...] Kamlesh Smith M.D. LB: [place] Report ID: [id number] Reading Location: [id number] Procedure Note Kamlesh Smith MD - 11/12/2024 [...] Kamlesh Smith M.D. LB: [place] Report ID: [id number] Reading Location: [id number] Jean Trujillo DO IMG PET PROCEDURES Final Res ult * POCT glucose (11/10/2024 12:05 PM ORTHOPEDICS PEDIATRIC PHYSICIAN) [facility] Signature Glucose, POC 97 70 - 199 mg/dL Comment:Testing performed by : [facility], [address] [place] [address]., [id number] Blood 11/10/2024 12:0 5 PM ORTHOPEDICS PEDIATRIC PHYSICIAN 11/10/2024 12:05 PM ORTHOPEDICS PEDIATRIC PHYSICIAN Jean Trujillo DO LAB POCT ORDERABLES - DEVICE Final Result [facility] [address] [facility] Department [place] [address] from Last 3 Months Insurance MEDICARE [facility] MEDICARE [facility] MEDICARE AARP Advance Directives For more information, please contact: [phone] * Full Code (Latest Code Status on File) Date Activated Date Inactivated Comments 11/21/2024 11:30 AM 11/22/2024 4:45 AM Care Teams Vault Teller Relationship Specialty Start Date End Date Yolanda Dougherty MD PCP - General Family Medicine 03/22/24 Jean Trujillo DO [address] [place] [address] MEDICAL ONCOLOGY, [facility] [address] [place] [address] Medical Oncologist/Geography Faculty Member Hematology and Oncology 03/22/24
--- OUTSIDE RECORDS SUMMARY | 2025-02-05 15:08 | XMS_ITS | Encounter Summary ---
Author Organization [facility] Address [address] [place] [address] Phone Care Team Providers Care Gasoline Pump Installer Name Role Phone Yolanda Dougherty MD Primary Care Provider [phone] Jean Trujillo DO Unavailable Reason for Referral * MRI/CAT/PET Scan (Routine) - Closed Specialty Diagnoses / Procedures Referred By Contac t Referred To Contact Radiology Procedures MRI Brain W WO Contrast Dahiana Agrawal MD [address] [place] [address] Phone: tel: Referral ID Status Reason Start Date Expiration Date Visits Re quested Visits Authorized [id number] Closed 02/01/2025 03/03/2026 1 1 Encounter Details Date Type Department Care Team (Late st Contact Info) Description 02/01/2025 Orders Only [facility] Oncology 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
--- OUTSIDE RECORDS SUMMARY | 2025-02-05 15:08 | XMS_ITS | Clinical Summary ---
Author Organization [facility] Address [address] [facility] [place] [address] Care Team Providers Care Double Needle Operator Name Role Phone Unavailable Primary Care [...]
--- OUTSIDE RECORDS SUMMARY | 2025-02-05 15:08 | XMS_ITS | Referral Summary ---
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 Name Role Phone Yolanda Dougherty MD Primary Care Provider [phone] Jean Trujillo DO Unavailable [phone] Encounters Date Type Department Care Team Description 02/05/2025 Telephone [facility] Oncology [address] [place] [address] [address] [place] [address] Unique Moya, CLARENCE 02/02/2025 Social Work [facility] Oncology [address] [place] [address] [address] [place] [address] Destinee Fernandez LCSW 02/02/2025 Telephone [facility] Oncology [address] [place] [address] [address] [place] [address] Unique Moya, CLARENCE 02/01/2025 Documentation [facility] Oncology [address] [place] [address] [address] [place] [address] Jean Trujillo, 02/01/2025 Orders Only [facility] Physicians [facility] Oncology [address] [place] [address] [address] [place] [address] ProviderDahiana MD 02/01/2025 Telephone [facility] Oncology [address] [place] [address] [address] [place] [address] Aminata Johnson, CLARENCE 01/19/2025 Telephone [facility] Physicians [facility] Oncology [address] [place] [address] [address] [place] [address] Aminata Johnson, LAND RECLAMATION SPECIALIST 01/19/2025 Orders Only [facility] Physicians [facility] Oncology [address] [place] [address] [address] [place] [address] Jean Trujillo, Malignant neoplasm of lower-inner quadrant of right breast of female, estrogen receptor negative (HCC) (Primary Dx); 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); Confusion 01/19/2025 11:00 AM FOOD EQUIPMENT SERVICE TECHNICIAN Clinical Support [facility] at [address] [address] Malignant neoplasm of lower-inner quadrant of right breast of female, estrogen receptor negative (HCC); Dehydration 01/19/2025 9:30 AM FOOD EQUIPMENT SERVICE TECHNICIAN Clinical Support [facility] Medical Office Building 2 Radiation Oncology [address] [place] [address] Normochromic anemia (Primary Dx); Malignant neoplasm of lower-inner quadrant of right breast of female, estrogen receptor negative (HCC) 01/18/2025 Telephone [facility] Oncology [address] [place] [address] [place] [address] Aminata Johnson, LAND RECLAMATION SPECIALIST 01/05/2025 12:00 PM FOOD EQUIPMENT SERVICE TECHNICIAN Office Visit [facility] Oncology [address] [place] [address] [address] [place] [address] Jean Trujillo, Malignant neoplasm of lower-inner quadrant of right breast of female, estrogen receptor negative (HCC) (Primary Dx); 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); Hypokalemia 01/01/2025 10:19 AM FOOD EQUIPMENT SERVICE TECHNICIAN - 01/01/2025 11:59 PM FOOD EQUIPMENT SERVICE TECHNICIAN Hospital Encounter [address] [address] Malignant neoplasm of lower-inner quadrant of right breast of female, estrogen receptor negative (HCC); Lymphadenopathy, mediastinal Discharge Disposition: Discharge to home or self care 01/01/2025 10:30 AM FOOD EQUIPMENT SERVICE TECHNICIAN Lab [facility] Outpatient Lab at [address] [phone] Malignant neoplasm of lower-inner quadrant of right breast of female, estrogen receptor negative (HCC) (Primary Dx) 12/01/2024 9:45 AM FOOD EQUIPMENT SERVICE TECHNICIAN Office Visit [facility] Oncology 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); Malignant neoplasm metastatic to right lung (HCC) 11/23/2024 Telephone [facility] [address] [place] [address] Hanna Arnold RN 11/21/2024 11:56 AM FOOD EQUIPMENT SERVICE TECHNICIAN - 11/21/2024 11:59 PM FOOD EQUIPMENT SERVICE TECHNICIAN Hospital Encounter [facility] Diagnostic Imaging [address] [place] [address] Discharge Disposition: Discharge to home or self care 11/21/2024 7:43 AM FOOD EQUIPMENT SERVICE TECHNICIAN - 11/21/2024 11:59 PM FOOD EQUIPMENT SERVICE TECHNICIAN Hospital Encounter [facility] [address] [place] [address] Rn, Mhb Rad Malignant neoplasm of lower-inner quadrant of right breast of female, estrogen receptor negative (HCC); Pleural mass; Encounter for biopsy; Encounter for therapeutic drug monitoring Discharge Disposition: Discharge to home or self care 11/17/2024 Orders Only [facility] Oncology [address] [place] [address] [address] [place] [phone] Jean Trujillo DO Malignant neoplasm of lower-inner quadrant of right breast of female, estrogen receptor negative (HCC) (Primary Dx); Pleural mass; Encounter for biopsy; Encounter for therapeutic drug monitoring 11/17/2024 Documentation [facility] Oncology [address] [place] [address] [address] [place] [address] Jean Trujillo DO 11/13/2024 Telephone [facility] Oncology [address] [place] [address] [address] [place] [address] Fanny Sibley RN 11/10/2024 11:51 AM FOOD EQUIPMENT SERVICE TECHNICIAN - 11/10/2024 11:59 PM FOOD EQUIPMENT SERVICE TECHNICIAN Hospital Encounter [facility] Medical Office Building [address] [place] [address] Discharge Disposition: Discharge to home or self care 11/09/2024 Telephone [facility] Diabetes and Endocrinology [address] [place] [phone] Collins Guadalupe, Elva Guadalupe MD new [...] from 03/31/2024:Stage IIIC(cT4b, cN0(sn), cM0, G3, ER-, [place]-, HER2-) - Signed by Jean Trujillo DO [...] on file Legal Sex Female 1:58 AM FOOD EQUIPMENT SERVICE TECHNICIAN Gender Identity Not on file Sexual Orientation Not on file 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 Not on file Not on file Not on nicolas e Last Filed Vital Signs Vital Sign Reading Time Taken Comments Blood Pressure 116/80 01/05/2025 11:59 AM FOOD EQUIPMENT SERVICE TECHNICIAN Pulse 96 01/05/2025 11:59 AM FOOD EQUIPMENT SERVICE TECHNICIAN Temperature 36.4 C (97.5 F) 01/05/2025 11:59 AM FOOD EQUIPMENT SERVICE TECHNICIAN Respiratory Rate 18 01/05/2025 11:5 9 AM FOOD EQUIPMENT SERVICE TECHNICIAN Oxygen Saturation 99% 01/05/2025 11: 59 AM FOOD EQUIPMENT SERVICE TECHNICIAN Inhaled Oxygen Concentration - - Weight 59.7 kg (131 lb 9.8 oz) 01/05/20 25 11:59 AM FOOD EQUIPMENT SERVICE TECHNICIAN with shoes Height 160 cm (5' 3) 11/21/2024 8:09 AM FOOD EQUIPMENT SERVICE TECHNICIAN Body Mass Index 23.31 11/21/2024 8:09 AM FOOD EQUIPMENT SERVICE TECHNICIAN Plan of Treatment Not on file Medical Devices Implanted Type Area Web Press Operator Assistant Device Identifier Shelf Expiration Date Model / Serial / Lot Right Knee Replacement Other - see comments Right: Knee Procedures Procedure Name Priority Date/Time Associated Diagnosis Comments MRI BRAIN W WO CONTRAST Schedule Routine, Read Routine (OP Routine) 02/01/2025 4:24 PM CDT EGFR Routine 01/19/2025 10:55 AM FOOD EQUIPMENT SERVICE TECHNICIAN Malignant neoplasm of lower-inner quadrant of right breast of female, estrogen receptor negative (HCC) Dehydration DIFFERENTIAL AUTO Routine 01/19/2025 10: 55 AM FOOD EQUIPMENT SERVICE TECHNICIAN Malignant neoplasm of lower-inner quadrant of right breast of female, estrogen receptor negative (HCC) Dehydration CBC WITH AUTO DIFFERENTIAL Routine 01/19/2025 10:55 AM FOOD EQUIPMENT SERVICE TECHNICIAN Malignant neoplasm of lower-inner quadrant of right breast of female, estrogen receptor negative (HCC) Dehydration COMPREHENSIVE METABOLIC PANEL Routine 01/19/2025 10:55 AM FOOD EQUIPMENT SERVICE TECHNICIAN Malignant neoplasm of lower-inner quadrant of right breast of female, estrogen receptor negative (HCC) Dehydration MAGNESIUM Routine 01/19/2025 10:55 AM FOOD EQUIPMENT SERVICE TECHNICIAN Malignant neoplasm of lower-inner quadrant of right breast of female, estrogen receptor negative (HCC) Dehydration EGFR Routine 01/01/2025 10:19 AM FOOD EQUIPMENT SERVICE TECHNICIAN Malignant neoplasm of lower-inner quadrant of right breast of female, estrogen receptor negative (HCC) Lymphadenopathy, mediastinal DIFFERENTIAL AUTO Routine 01/01/2025 10: 19 AM FOOD EQUIPMENT SERVICE TECHNICIAN Malignant neoplasm of lower-inner quadrant of right breast of female, estrogen receptor negative (HCC) Lymphadenopathy, mediastinal COMPREHENSIVE METABOLIC PANEL Routine 01/01/2025 10:19 AM FOOD EQUIPMENT SERVICE TECHNICIAN Malignant neoplasm of lower-inner quadrant of right breast of female, estrogen receptor negative (HCC) Lymphadenopathy, mediastinal CBC WITH AUTO DIFFERENTIAL Routine 01/01/2025 10:19 AM FOOD EQUIPMENT SERVICE TECHNICIAN Malignant neoplasm of lower-inner quadrant of right breast of female, estrogen receptor negative (HCC) Lymphadenopathy, mediastinal TEMPUS XT DNA AND RNA SOLID TUMOR Routine 12/01/2024 10:35 AM FOOD EQUIPMENT SERVICE TECHNICIAN Malignant neoplasm of lower-inner quadrant of right breast of female, estrogen receptor negative (HCC) Malignant neoplasm metastatic to right lung (HCC) XR CHEST 1 VIEW Timed 11/21/2024 12:15 PM FOOD EQUIPMENT SERVICE TECHNICIAN CT NEEDLE BIOPSY LUNG RIGHT Schedule Routine, Read Routine (OP Routine) 11/21/2024 10:54 AM FOOD EQUIPMENT SERVICE TECHNICIAN Malignant neoplasm of lower-inner quadrant of right breast of female, estrogen receptor negative (HCC) Pleural mass Encounter for biopsy SURGICAL PATHOLOGY Routine 11/21/2024 10 :16 AM FOOD EQUIPMENT SERVICE TECHNICIAN Malignant neoplasm of lower-inner quadrant of right breast of female, estrogen receptor negative (HCC) Pleural mass Encounter for biopsy DIFFERENTIAL AUTO Routine 11/21/2024 8:1 3 AM FOOD EQUIPMENT SERVICE TECHNICIAN Malignant neoplasm of lower-inner quadrant of right breast of female, estrogen receptor negative (HCC) Encounter for biopsy Encounter for therapeutic drug monitoring CBC WITH AUTO DIFFERENTIAL Routine 11/21/2024 8:13 AM FOOD EQUIPMENT SERVICE TECHNICIAN Malignant neoplasm of lower-inner quadrant of right breast of female, estrogen receptor negative (HCC) Encounter for biopsy Encounter for therapeutic drug monitoring APTT Routine 11/21/2024 8:13 AM FOOD EQUIPMENT SERVICE TECHNICIAN Malignant neoplasm of lower-inner quadrant of right breast of female, estrogen receptor negative (HCC) Encounter for biopsy Encounter for therapeutic drug monitoring PROTIME-INR Routine 11/21/2024 8:13 AM FOOD EQUIPMENT SERVICE TECHNICIAN Malignant neoplasm of lower-inner quadrant of right breast of female, estrogen receptor negative (HCC) Encounter for biopsy Encounter for therapeutic drug monitoring PET/CT FDG SKULL TO THIGH Schedule Routine, Read Routine (OP Routine) 11/10/2024 1:35 PM FOOD EQUIPMENT SERVICE TECHNICIAN Malignant neoplasm of lower-inner quadrant of right breast of female, estrogen receptor negative (HCC) Lymphadenopathy, mediastinal Triple negative breast cancer (HCC) POCT GLUCOSE DEVICE Routine 11/10/2024 1 2:05 PM FOOD EQUIPMENT SERVICE TECHNICIAN from Last 3 Months Results * MRI Brain W WO Contrast (02/01/2025 4:24 PM CDT) Anatomical Region Laterality Modality Head and Neck N/A Magnetic Resonan ce us Historical Provider MD HARO MRI PROCEDURES Final Result * eGFR (01/19/2025 10:55 AM FOOD EQUIPMENT SERVICE TECHNICIAN) eGFR 66 >=60 mL/min/1. 73 m2 Comment: [...] was last reviewed 2021. Testing performed by: [address] [address] Blood 01/19/2025 10:5 5 AM FOOD EQUIPMENT SERVICE TECHNICIAN 01/19/2025 11:09 AM FOOD EQUIPMENT SERVICE TECHNICIAN Jean Trujillo DO LAB BLOOD ORDERABLES Final R esult [facility] [address] [facility] [place] [address] * Differential, auto (01/19/2025 10:55 AM FOOD EQUIPMENT SERVICE TECHNICIAN) Neutrophil abs 4.7 1.5 - 6.5 K/cumm Comment:Testing performed by : [address] [address] Imm gran abs 0.0 0.0 - 0.1 K/cumm [facility] Comment:Testing performed by : [address] [address] Lymphocyte abs 0.8 0.8 - 3.3 K/cumm [facility] Comment:Testing performed by : [address] [address] Monocyte abs 0.5 0.2 - 0.8 K/cumm [facility] Comment:Testing performed by : [address] [address] Eosinophil abs 0.1 0.0 - 0.5 K/cumm [facility] Comment:Testing performed by : [address] [address] Basophil abs 0.0 0.0 - 0.1 K/cumm [facility] Comment:Testing performed by : [address] [address] Neutrophil pct 77.9 % [facility] Comment: Interpretive Data Percent cell count reference ranges are not reported, since discordance with absolute values may lead to misinterpretation of CBC data. Current Interpretive Data was last revised on 2018. Testing performed by: [address] [address] Imm gran pct 0.5 % [facility] Comment: Interpretive Data Percent cell count reference ranges are not reported, since discordance with absolute values may lead to misinterpretation of CBC data. Current Interpretive Data was last revised on 2018. Testing performed by: [address] [address] Lymphocyte pct 12.7 % [facility] Comment: Interpretive Data Percent cell count reference ranges are not reported, since discordance with absolute values may lead to misinterpretation of CBC data. Current Interpretive Data was last revised on 2018. Testing performed by: [address] [address] Monocyte pct 7.9 % [facility] Comment: Interpretive Data Percent cell count reference ranges are not reported, since discordance with absolute values may lead to misinterpretation of CBC data. Current Interpretive Data was last revised on 2018. Testing performed by: [address] [address] Eosinophil pct 0.8 % [facility] Comment: Interpretive Data Percent cell count reference ranges are not reported, since discordance with absolute values may lead to misinterpretation of CBC data. Current Interpretive Data was last revised on 2018. Testing performed by: [address] [address] Basophil pct 0.2 % [facility] Comment: Interpretive Data Percent cell count reference ranges are not reported, since discordance with absolute values may lead to misinterpretation of CBC data. Current Interpretive Data was last revised on 2018. Testing performed by: [address] [address] Blood 01/19/2025 10:5 5 AM FOOD EQUIPMENT SERVICE TECHNICIAN 01/19/2025 11:09 AM FOOD EQUIPMENT SERVICE TECHNICIAN us Jean Trujillo DO LAB BLOOD ORDERABLES Final R esult [facility] [address] [facility] Department [place] [address] * (ABNORMAL) CBC with auto differential (01/19/2025 10:55 AM FOOD EQUIPMENT SERVICE TECHNICIAN) [facility] WBC 6.0 3.8 - 9.9 K/cumm Comment:Testing performed by : [address], [address] Hgb 12.0 11.9 - 15.5 g/dL [facility] Comment:Testing performed by : [address], [address] Hct 35.2(L) 35.6 - 45.5 % [facility] Comment:Testing performed by : [address], [address] Plt 227 150 - 400 K/cumm [facility] Comment:Testing performed by : [address], [address] MPV 10.1 9.1 - 12.3 fL [facility] Comment:Testing performed by : [address], [address] RBC 3.91 3.90 - 5.20 M/cumm [facility] Comment:Testing performed by : [address], [address] MCV 90.0 81.3 - 96.4 fL [facility] Comment:Testing performed by : [address], [address] MCH 30.7 27.1 - 33.3 pg [facility] Comment:Testing performed by : [address], [address] MCHC 34.1 32.3 - 35.7 g/dL [facility] Comment:Testing performed by : [address], [address] RDW CV 18.9(H) 11.1 - 14.9 % [facility] Comment:Testing performed by : [address], [address] RDW SD 55.0(H) 35.7 - 48.1 fL [facility] Comment:Testing performed by : [address], [address] NRBC abs 0.00 0.00 - 0.01 K/cumm [facility] Comment:Testing performed by : [address] [address] Blood 01/19/2025 10:5 5 AM FOOD EQUIPMENT SERVICE TECHNICIAN 01/19/2025 11:09 AM FOOD EQUIPMENT SERVICE TECHNICIAN Jean Trujillo DO LAB BLOOD ORDERABLES Final R esult Performing Organization Address City/[facility] Co de Phone Number [facility] [address] [employer] [address] * Magnesium (01/19/2025 10:55 AM FOOD EQUIPMENT SERVICE TECHNICIAN) Pathologist [facility] Magnesium 2.0 1.4 - 2.5 mg/dL Comment:Testing performed by : [address] [address] Blood 01/19/2025 10:5 5 AM FOOD EQUIPMENT SERVICE TECHNICIAN 01/19/2025 11:09 AM FOOD EQUIPMENT SERVICE TECHNICIAN Jean Trujillo DO LAB BLOOD ORDERABLES Final R esult Performing Organization Address [facility] Co de Phone Number [address] [address] * Comprehensive metabolic panel (01/19/2025 10:55 AM FOOD EQUIPMENT SERVICE TECHNICIAN) Pathologist [facility] Sodium 139 135 - 145 mmol/L Comment:Testing performed by : [address] [address] Potassium, pl 3.6 3.3 - 4.9 mmol/L [facility] Comment:Testing performed by : [address] [address] Chloride 102 97 - 110 mmol/L [facility] Comment:Testing performed by : [address] [address] CO2 24 22 - 32 mmol/L [facility] Comment:Testing performed by : [address] [address] Anion gap 13 2 - 15 mmol/L [facility] Comment:Testing performed by : [address] [address] BUN 11 6 - 25 mg/dL [facility] Comment:Testing performed by : [address] [address] Creatinine 0.90 0.60 - 1.10 mg/dL [facility] Comment:Testing performed by : [address] [address] Glucose 104 70 - 199 mg/dL [facility] [...] was last revised 2022. Testing performed by: [address] [address] Calcium 9.6 8.5 - 10.3 mg/dL [facility] Comment:Testing performed by : [address] [address] Bilirubin, total 0.9 0.1 - 1.2 mg/dL [facility] Comment:Testing performed by : [address] [address] Protein, pl 6.8 6.5 - 8.5 g/dL [facility] Comment:Testing performed by : [address] [address] Albumin 3.8 3.5 - 5.0 g/dL [facility] Comment:Testing performed by : [address] [address] Alk phos 77 40 - 130 Units/L [facility] Comment:Testing performed by : [address] [address] ALT 7 7 - 45 Units/L [facility] Comment:Testing performed by : [address] [address] AST 17 10 - 45 Units/L [facility] Comment:Testing performed by : [facility], [address] [place]., [address] Blood 01/19/2025 10:5 5 AM FOOD EQUIPMENT SERVICE TECHNICIAN 01/19/2025 11:09 AM FOOD EQUIPMENT SERVICE TECHNICIAN Jean LovellVance Trujillo DO LAB BLOOD ORDERABLES Final R esult [facility] [address] [facility] Department [place] [address] * (ABNORMAL) eGFR (01/01/2025 10:19 AM FOOD EQUIPMENT SERVICE TECHNICIAN) eGFR 57(L) >=60 mL/min/1. 73 m2 Comment: [...] reviewed 2021. Blood 01/01/2025 10:1 9 AM FOOD EQUIPMENT SERVICE TECHNICIAN 01/01/2025 3:48 PM FOOD EQUIPMENT SERVICE TECHNICIAN Jean Td Cassandra DO LAB BLOOD ORDERABLES Final R esult [facility] [address] Department [place] [address] * Differential, auto (01/01/2025 10:19 AM FOOD EQUIPMENT SERVICE TECHNICIAN) Neutrophil abs 3.9 1.5 - 6.5 K/cumm Imm gran abs 0.0 0.0 - 0.1 K/cumm [facility] Lymphocyte abs 1.1 0.8 - 3.3 K/cumm [facility] Monocyte abs 0.7 0.2 - 0.8 K/cumm [facility] Eosinophil abs 0.1 0.0 - 0.5 K/cumm [facility] Basophil abs 0.0 0.0 - 0.1 K/cumm [facility] Neutrophil pct 67.2 % [facility] Comment: Interpretive Data Percent cell count reference ranges are not reported, since discordance with absolute values may lead to misinterpretation of CBC data. Current Interpretive Data was last revised on 2018. Imm gran pct 0.3 % [facility] Comment: Interpretive Data Percent cell count reference ranges are not reported, since discordance with absolute values may lead to misinterpretation of CBC data. Current Interpretive Data was last revised on 2018. Lymphocyte pct 19.4 % [facility] Comment: Interpretive Data Percent cell count reference ranges are not reported, since discordance with absolute values may lead to misinterpretation of CBC data. Current Interpretive Data was last revised on 2018. Monocyte pct 11.9 % [facility] Comment: Interpretive Data Percent cell count reference ranges are not reported, since discordance with absolute values may lead to misinterpretation of CBC data. Current Interpretive Data was last revised on 2018. Eosinophil pct 0.9 % [facility] Comment: Interpretive Data Percent cell count reference ranges are not reported, since discordance with absolute values may lead to misinterpretation of CBC data. Current Interpretive Data was last revised on 2018. Basophil pct 0.3 % [facility] Comment: Interpretive Data Percent cell count reference ranges are not reported, since discordance with absolute values may lead to misinterpretation of CBC data. Current Interpretive Data was last revised on 2018. Blood 01/01/2025 10:1 9 AM FOOD EQUIPMENT SERVICE TECHNICIAN 01/01/2025 3:31 PM FOOD EQUIPMENT SERVICE TECHNICIAN Jean Trujillo DO LAB BLOOD ORDERABLES Final R esult Performing Organization Address [facility] Co de Phone Number [facility] [place] [address] Department of Laboratories [place], [place] [id number] * (ABNORMAL) CBC with auto differential (01/01/2025 10:19 AM FOOD EQUIPMENT SERVICE TECHNICIAN) Pathologist [facility] WBC 5.8 3.8 - 9.9 K/cumm Hgb [...] NRBC abs 0.00 0.00 - 0.01 K/cumm [facility] Blood 01/01/2025 10:1 9 AM FOOD EQUIPMENT SERVICE TECHNICIAN 01/01/2025 3:31 PM FOOD EQUIPMENT SERVICE TECHNICIAN Jean Trujillo DO LAB BLOOD ORDERABLES Final [facility] Performing Organization Address [facility] Co de Phone Number [facility] [place] [address] Department [place] [address] * (ABNORMAL) Comprehensive metabolic panel (01/01/2025 10:19 AM FOOD EQUIPMENT SERVICE TECHNICIAN) Pathologist [facility] Sodium 139 135 - 145 mmol/L Potassium, [...] [facility] Blood 01/01/2025 10:1 9 AM FOOD EQUIPMENT SERVICE TECHNICIAN 01/01/2025 3:31 PM FOOD EQUIPMENT SERVICE TECHNICIAN us Jean Trujillo DO LAB BLOOD ORDERABLES Final R esult [facility] [address] Department [place] [address] * Tempus xT DNA and RNA - Tumor Only (12/01/2024 10:35 AM FOOD EQUIPMENT SERVICE TECHNICIAN) Reason for Study To identify somatic and germline mutations relevant to patient's cancer. 12/23/2024 6:14 PM FOOD EQUIPMENT SERVICE TECHNICIAN [facility] Genetic Diseases Assessed Cancer 12/23/2024 6:14 PM FOOD EQUIPMENT SERVICE TECHNICIAN [facility] Description of Ranges of DNA Sequences Examined 648 gene panel 12/23/2024 6:14 PM FOOD EQUIPMENT SERVICE TECHNICIAN [facility] Overall Interpretation positive 12/23/2024 6:14 PM FOOD EQUIPMENT SERVICE TECHNICIAN [facility] MSI Stable 12/23/2024 6:14 PM FOOD EQUIPMENT SERVICE TECHNICIAN [facility] TMB 6.3 m/MB 12/23/2024 6:14 PM FOOD EQUIPMENT SERVICE TECHNICIAN [facility] [email or web address] 12/23/2024 6:14 PM FOOD EQUIPMENT SERVICE TECHNICIAN [facility] Comment:[facility] link MMR Overall Result normal 12/23/2024 6:14 PM FOOD EQUIPMENT SERVICE TECHNICIAN [facility] MLH1 Presence or Absence present 12/23/2024 6:14 PM FOOD EQUIPMENT SERVICE TECHNICIAN [facility] PMS2 Presence or Absence present 12/23/2024 6:14 PM FOOD EQUIPMENT SERVICE TECHNICIAN [facility] MSH2 Presence or Absence present 12/23/2024 6:14 PM FOOD EQUIPMENT SERVICE TECHNICIAN [facility] MSH6 Presence or Absence present 12/23/2024 6:14 PM FOOD EQUIPMENT SERVICE TECHNICIAN [facility] PD-L1 Interpretation by 22C3 negative 12/23/2024 6:14 PM FOOD EQUIPMENT SERVICE TECHNICIAN [facility] PD-L1 (22C3) Combined Positive Score 5 12/23/2024 6:14 PM FOOD EQUIPMENT SERVICE TECHNICIAN [facility] PD-L1 (22C3) Tumor Proportion Score 3 % 12/23/2024 6:14 PM FOOD EQUIPMENT SERVICE TECHNICIAN [facility] Pertinent Negatives ERBB2 (HER2), ESR1, PIK3CA 12/23/2024 6:14 PM FOOD EQUIPMENT SERVICE TECHNICIAN [facility] Low Coverage Regions EPHB2, KDM5D, RXRA, TGFBR1 12/23/2024 6:14 PM FOOD EQUIPMENT SERVICE TECHNICIAN [facility] Therapy Count 1 12/23/2024 6:14 PM FOOD EQUIPMENT SERVICE TECHNICIAN [facility] Tempus: Potential Therapy 1 Gene: 9588^PTEN^HGNC Variant: p.I203fs Match Type: snvIndel Match Type Description: PTEN p.I203fs Agent: Capivasertib + Fulvestrant Drug Class: Combination (Addison-AKT Inhibitor + Estrogen Receptor Antagonist) Tissue: Breast Cancer Association: Response Evidence Status: Consensus Evidence ID: NCCN KDB Variant: [id number] Label: FDA Off Label FDA Approved?: Yes On label?: No 12/23/2024 6:14 PM FOOD EQUIPMENT SERVICE TECHNICIAN [facility] Trial Count 3 12/23/2024 6:14 PM FOOD EQUIPMENT SERVICE TECHNICIAN [facility] Tempus: Clinical Trial Match 1 Clinical Trial NCT ID: [id number] Clinical Trial Title: Pemetrexed Response in Relation to Tumor Alterations of Gene Status for the Treatment of Patients With Metastatic Urothelial Bladder Cancer and Other Solid Tumors Clinical Trial URL: [email or web address] Clinical Phase: Phase 2 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 Clinical Trial Distance and Location: 259 [address], [place], [place] 12/23/2024 6:14 PM FOOD EQUIPMENT SERVICE TECHNICIAN [facility] Tempus: Clinical Trial Match 2 Clinical Trial NCT ID: [id number] Clinical Trial Title: [id number] With or Without Bevacizumab and Paclitaxel for the Treatment of Advanced Solid Tumors Clinical Trial URL: [email or web address] Clinical Phase: Phase 1 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 Clinical Trial Distance and Location: 6[address] mi, [place], [place] 12/23/2024 6:14 PM FOOD EQUIPMENT SERVICE TECHNICIAN [facility] Tempus: Clinical Trial Match 3 Clinical Trial NCT ID: [id number] Clinical Trial Title: Study of the CDK4/6 Inhibitor Palbociclib ([id number]) in Combination With the PI3K/mTOR Inhibitor Gedatolisib ([id number]) for Patients With Advanced Squamous Cell Lung, Pancreatic, Head & Neck and Other Solid Tumors Clinical Trial URL: [email or web address] Clinical Phase: Phase 1 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 No gene rearrangements nor reportable altered splicing events were identified from RNA sequencing. 12/23/2024 6:14 PM FOOD EQUIPMENT SERVICE TECHNICIAN [facility] Germline Variant Note No normal sample was received, therefore tumor/normal matched analysis was not performed. 12/23/2024 6:14 PM FOOD EQUIPMENT SERVICE TECHNICIAN [facility] HLA-A Typing A*02:01,A*29:02 025 6:14 PM FOOD EQUIPMENT SERVICE TECHNICIAN [facility] HLA-B Typing B*51:01,B*51:01 025 6:14 PM FOOD EQUIPMENT SERVICE TECHNICIAN [facility] HLA-C Typing C*01:02,C*14:02 025 6:14 PM FOOD EQUIPMENT SERVICE TECHNICIAN [facility] HLA-A Ambiguous Alleles Yes 12/23/2024 6:14 PM FOOD EQUIPMENT SERVICE TECHNICIAN [facility] HLA-B Ambiguous Alleles Yes 12/23/2024 6:14 PM FOOD EQUIPMENT SERVICE TECHNICIAN [facility] HLA-C Ambiguous Alleles Yes 12/23/2024 6:14 PM FOOD EQUIPMENT SERVICE TECHNICIAN [facility] HLA-A Sample Type Tumor Only 025 6:14 PM FOOD EQUIPMENT SERVICE TECHNICIAN [facility] HLA-B Sample Type Tumor Only 025 6:14 PM FOOD EQUIPMENT SERVICE TECHNICIAN [facility] HLA-C Sample Type Tumor Only 025 6:14 PM FOOD EQUIPMENT SERVICE TECHNICIAN [facility] Tissue 12/01/2024 10:3 5 AM FOOD EQUIPMENT SERVICE TECHNICIAN 12/08/2024 2:27 PM FOOD EQUIPMENT SERVICE TECHNICIAN Narrative This result has genomic variants that were not included in this document. Jean Trujilol DO LAB GENETIC TESTING Final Re sult [facility] [address] [facility], [address] [phone] [facility] [address] [facility], [address] [place] [address] * XR Chest 1 Vw - Portable (11/21/2024 12:15 PM FOOD EQUIPMENT SERVICE TECHNICIAN) Anatomical Region Laterality Modality Body, Chest N/A Computed Radiogr aphy 11/21/2024 12:1 8 PM FOOD EQUIPMENT SERVICE TECHNICIAN Narrative 11/21/2024 12:30 PM FOOD EQUIPMENT SERVICE TECHNICIAN EXAM DESCRIPTION: XR CHEST 1 VIEW . [...] Hussain Sanchez M.D. SN T: Report ID: [id number] Reading Location: [id number] Procedure Note Husasin Sanchez MD - 11/21/2024 EXAM DESCRIPTION: XR [...] Hussain Sanchez M.D. SN T: Report ID: [id number] Reading Location: [id number] Hussain Sanchez MD IMG XR PROCEDURES Final Result * CT Lung Needle Biopsy Right (11/21/2024 10:54 AM FOOD EQUIPMENT SERVICE TECHNICIAN) Anatomical Region Laterality Modality Lung N/A Computed Tomogra phy, Computed Radiography 11/21/2024 11:0 6 AM FOOD EQUIPMENT SERVICE TECHNICIAN Narrative 11/21/2024 11:07 AM FOOD EQUIPMENT SERVICE TECHNICIAN EXAM DESCRIPTION: CT NEEDLE BIOPSY LUNG RIGHT [...] Hussain Sanchez M.D. SN T: Report ID: [id number] Reading Location: [id number] Procedure Note Hussain Sanchez MD - 11/21/2024 [...] Hussain Sanchez M.D. SN T: Report ID: [id number] Reading Location: [id number] Jean Trujillo DO IMG CT PROCEDURES Final Resu lt * Surgical pathology (11/21/2024 10:16 AM FOOD EQUIPMENT SERVICE TECHNICIAN) Tissue (Lung Biopsy) 11/21/2024 10:16 AM FOOD EQUIPMENT SERVICE TECHNICIAN Narrative [facility] - 11/30/2024 3:58 PM FOOD EQUIPMENT SERVICE TECHNICIAN [facility] Department of Pathology [address] [place] [address] Note to Patients: This report may contain [...] : 1945 (Age: 79) Gender: F Address: [address] [place] [address] Hospital #: [id number] Service: DEFAULT Location: Patient Type: [facility] ANCILLARY Taken: 11/21/2024 Received: 11/21/2024 Accessioned: 11/21/2024 [...] Technical Notes Estrogen receptor (ER), progesterone receptor (AZ), and HER2 were evaluated by immunohistochemistry (IHC) by morphometric analysis in routine formalin-fixed paraffin-embedded tissue using a proprietary polymer- based detection system and instrumentation by [employer] per director stage's recommendation. The IHC results for ER (antibody SP1) and AZ (antibody 1E2) were quantified and interpreted (positive vs negative) using the Jossie score (total score range = 0 to 8; positive >2) (see: Mod Pathol 11:155, 1998; J Clin Oncol 17:1474, 1998; Mod Pathol 17:1545, 2004; Arch Pathol Lab Med 144:545, 2020). Pathway Her2 is a trademark of [employer] The IHC results for Pathway Her2 [...] a proprietary polymer-based detection system andinstrumentation by [employer] per director stage's recommendation. The index was determined by manual [...] ordered molecular analysis. Materials were forwarded to [facility] where the PD-L1, MMR test [...] Jar 0. jjmhb/11/21/2024 11:34 ESTEFANI Raymundo, PA ([facility] Microscopic slide review and interpretation for this case was performed at [facility], Department of Surgical Pathology, [address] [facility], [id number], [place] [address] CLIA # [id number] us Jean Trujillo DO LAB PATHOLOGY ORDERABLES Fin al Result [facility] * Differential, auto (11/21/2024 8:13 AM FOOD EQUIPMENT SERVICE TECHNICIAN) Neutrophil abs 3.8 1.5 - 6.5 K/cumm Imm gran abs 0.0 0.0 - 0.1 K/cumm [facility] Lymphocyte abs 1.3 0.8 - 3.3 K/cumm [facility] Monocyte abs 0.6 0.2 - 0.8 K/cumm [facility] Eosinophil abs 0.1 0.0 - 0.5 K/cumm [facility] Basophil abs 0.0 0.0 - 0.1 K/cumm [facility] Neutrophil pct 65.0 % [facility] Comment: Interpretive Data Percent cell count reference ranges are not reported, since discordance with absolute values may lead to misinterpretation of CBC data. Current Interpretive Data was last revised on 2018. Imm gran pct 0.3 % [facility] Comment: Interpretive Data Percent cell count reference ranges are not reported, since discordance with absolute values may lead to misinterpretation of CBC data. Current Interpretive Data was last revised on 2018. Lymphocyte pct 22.8 % [facility] Comment: Interpretive Data Percent cell count reference ranges are not reported, since discordance with absolute values may lead to misinterpretation of CBC data. Current Interpretive Data was last revised on 2018. Monocyte pct 9.7 % [facility] Comment: Interpretive Data Percent cell count reference ranges are not reported, since discordance with absolute values may lead to misinterpretation of CBC data. Current Interpretive Data was last revised on 2018. Eosinophil pct 1.7 % [facility] Comment: Interpretive Data Percent cell count reference ranges are not reported, since discordance with absolute values may lead to misinterpretation of CBC data. Current Interpretive Data was last revised on 2018. Basophil pct 0.5 % [facility] Comment: Interpretive Data Percent cell count reference ranges are not reported, since discordance with absolute values may lead to misinterpretation of CBC data. Current Interpretive Data was last revised on 2018. Blood 11/21/2024 8:13 AM FOOD EQUIPMENT SERVICE TECHNICIAN 11/21/2024 8:17 AM FOOD EQUIPMENT SERVICE TECHNICIAN us Jean Trujillo DO LAB BLOOD ORDERABLES Final R esult [facility] [address] [facility] Department [place] [address] * (ABNORMAL) CBC with auto differential (11/21/2024 8:13 AM FOOD EQUIPMENT SERVICE TECHNICIAN) WBC 5.8 3.8 - 9.9 K/cumm Hgb 11.3(L) 11.9 - 15.5 g/dL [facility] Hct 35.5(L) 35.6 - 45.5 % [facility] Plt 265 150 - 400 K/cumm [facility] MPV 10.0 9.1 - 12.3 fL [facility] RBC 3.80(L) 3.90 - 5.20 M/cumm [facility] MCV 93.4 81.3 - 96.4 fL [facility] MCH 29.7 27.1 - 33.3 pg [facility] MCHC 31.8(L) 32.3 - 35.7 g/dL [facility] RDW CV 15.9(H) 11.1 - 14.9 % [facility] RDW SD 53.2(H) 35.7 - 48.1 fL [facility] NRBC abs 0.00 0.00 - 0.01 K/cumm [facility] Blood 11/21/2024 8:13 AM FOOD EQUIPMENT SERVICE TECHNICIAN 11/21/2024 8:17 AM FOOD EQUIPMENT SERVICE TECHNICIAN Narrative [facility] - 11/21/2024 8:22 AM FOOD EQUIPMENT SERVICE TECHNICIAN Dx codes Z76.89, Z01.818 Jean Trujillo YCharts LAB BLOOD ORDERABLES Final R Shop[employer] Performing Organization Address [facility] de Phone Number SAVITA [address] [facility] Department [place] [address] * aPTT (11/21/2024 8:13 AM FOOD EQUIPMENT SERVICE TECHNICIAN) Pathologist [facility] aPTT 25 22 - 37 sec Comment: Interpretive data aPTT test has not been evaluated for monitoring heparin therapy. The anti-Xa is the preferred test. Current interpretive data was last revised on 2019. Blood 11/21/2024 8:13 AM FOOD EQUIPMENT SERVICE TECHNICIAN 11/21/2024 8:17 AM FOOD EQUIPMENT SERVICE TECHNICIAN Jean Trujillo [employer] LAB BLOOD ORDERABLES Final R esult Performing Organization Address City/[facility]/ZIP Co de Phone Number SAVITA [address] [facility] [place] [address] * Protime-INR (11/21/2024 8:13 AM FOOD EQUIPMENT SERVICE TECHNICIAN) PT 13.2 12.0 - 14.6 sec INR 1.0 0.9 - 1.2 [facility] Comment: Ref Range High Interpretive data Oral anticoagulant therapeutic ranges: Venous thromboembolism prophylaxis or treatment: 2.0-3.0 CARDIOLOGY Standard range: 2.0-3.0 High-intensity range: 2.5-3.5 Refer to indication-specific guidelines for appropriate target ranges for prosthetic heart valve replacement. Current interpretive data was last revised on 2019. Blood 11/21/2024 8:13 AM FOOD EQUIPMENT SERVICE TECHNICIAN 11/21/2024 8:17 AM FOOD EQUIPMENT SERVICE TECHNICIAN Jean Trujillo DO LAB BLOOD ORDERABLES Final R esult Performing Organization Address City/State/[facility] Co de Phone Number SAVITA [address] [facility] [place] [address] * PET/CT FDG Skull to Thigh (11/10/2024 1:35 PM FOOD EQUIPMENT SERVICE TECHNICIAN) Anatomical Region Laterality Modality N/A Positron Emissio n Tomography (PET) 11/10/2024 4:50 PM FOOD EQUIPMENT SERVICE TECHNICIAN Narrative 11/12/2024 1:01 PM FOOD EQUIPMENT SERVICE TECHNICIAN EXAM DESCRIPTION: PET/CT FDG SKULL TO THIGH [...] Kamlesh Smith M.D. LB: [place] Report ID: [id number] Reading Location: [place] [address] Procedure Note Kamlesh Smith MD - 11/12/2024 [...] Kamlesh Smith M.D. LB: [place] Report ID: [id number] Reading Location: [id number] us Jean Trujillo DO IMG PET PROCEDURES Final Res ult * POCT glucose (11/10/2024 12:05 PM FOOD EQUIPMENT SERVICE TECHNICIAN) Glucose, POC 97 70 - 199 mg/dL Comment:Testing performed by : [facility], [address] [place] [address], [place]., [address] Blood 11/10/2024 12:0 5 PM FOOD EQUIPMENT SERVICE TECHNICIAN 11/10/2024 12:05 PM FOOD EQUIPMENT SERVICE TECHNICIAN Jean Trujillo DO LAB POCT ORDERABLES - DEVICE Final Result Performing Organization Address City/State/ZIP Co mo Phone Number CERNER [address] [facility] Department [place] [employer] [address] from Last 3 Months Insurance MEDICARE [facility] MEDICARE [facility] Member Subscriber Plan / Payer (Ef fective 2023-Present) Name:Mary Barahona Relation to Subscriber:Self Name:Mary Barahona Payer ID:[id number] Group ID:Not on file Type:[employer] Address: [facility] [address] [place] [id number] MEDICARE [facility] Advance Directives For more information, please contact: [phone] * Full Code (Latest Code Status on File) Date Activated Date Inactivated Comments 11/21/2024 11:30 AM 11/22/2024 4:45 AM Care Teams General Maintenance Mechanic Relationship Specialty Start Date End Date Yolanda Dougherty MD PCP - General Family Medicine 03/22/24 Jean Trujillo DO [address] [facility], [facility] [address] [place] [address] Medical Oncologist/Film Printer Hematology and Oncology 03/22/24
--- OUTSIDE RECORDS SUMMARY | 2025-02-05 15:08 | XMS_ITS | Clinical Summary ---
Author Organization [facility] Address [facility] [place] [address] Care Team Providers Care Test Specialist Name Role Phone Unavailable Primary Care Provider [...]
--- OUTSIDE RECORDS SUMMARY | 2025-02-05 15:08 | XMS_ITS | Encounter Summary ---
Author Organization [facility] Address [address] [place] [address] Phone Care Team Providers Care Display Department Manager Name Role Phone Yolanda Dougherty MD Primary Care Provider [phone] Jean Trujillo DO Unavailable [phone] Encounter Details Date Type Department Care Team (Late st Contact Info) Description 02/05/2025 Telephone [facility] Oncology [address] [facility] [address] [place] [address] Unique Moya CMA Social History [...] on file Legal Sex Female 1:58 AM BURNER SHAFT Gender Identity Not on file Sexual Orientation Not on file Occupation Industry Job Start Date 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 Not on file Not on file Not on nicolas e documented as of this encounter Miscellaneous Notes * Telephone Encounter - Unique Moya CMA - 02/05/2025 11:09 AM CDT Called patient spouse, advised him Dr Trujillo would like him to take her to the ER at [place]; hestated he would not be able to get her out of the bedroom, advised he call EMS He verbalized understanding and appreciation for the call * Telephone Encounter - Unique Moya CMA - 02/05/2025 11:08 AM CDT ----- Message from Nurse Fanny Fountain sent at 02/05/2025 10:56 AM CDT ----- Have her go into the ER at [place] ----- Message ----- From: Unique Moya CMA [...] on filedocumented in this encounter Care Teams Display Department Manager Relationship Specialty Start Date End Date Yolanda Dougherty MD PCP - General Family Medicine 03/22/24 Jean Trujillo DO [address] [place] [address] MEDICAL ONCOLOGY, [address] [address] Medical Oncologist/Bumper Straightener Hematology and Oncology 03/22/24 documented as of this encounter
--- OUTSIDE RECORDS SUMMARY | 2025-02-05 15:08 | XMS_ITS ---
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
[2025-02-05 15:11] LABS: Lymphocytes Absolute Manual 0.61 K/mm3 (1.1-4.5); Monocytes Absolute Manual 0.73 K/mm3 (0.1-0.90); Monocytes Percent Manual 6 % (3-9); Neutrophils Percent Manual 89 % (46-73); Platelet Estimate Adequate (Adequate); Schistocytes None Seen; Total Cells Counted 100
[2025-02-05 15:12] LABS: Anisocytosis 3+; Hypochromasia 1+
[2025-02-05 15:28] LABS: Troponin I 0.043 ng/mL (0.000-0.034)
[2025-02-05 15:29] LABS: Band Neutrophils Percent 0 % (0-6); Neutrophils Absolute Manual 10.94 K/mm3 (1.7-7.2)
[2025-02-05 16:26] LABS: NT Pro B Type Natriuretic Pept 1810 pg/mL (19.9-100)
[2025-02-05 17:11] LABS: Add Urine Microscopic? YES; Appearance Urine Clear (Clear); Bacteria Urine None Seen /hpf; Bilirubin Urine Negative (Negative); Blood Urine Negative (Negative); Color Urine Yellow (Yellow); Glucose Urine UA Negative (Negative); Hyaline Casts Urine Present /lpf; Ketones Urine Negative (Negative); Leukocyte Esterase Ur Negative LEU/UL (Negative); Nitrate Urine Negative (Negative); Protein Urine 1+ mg/dL (Negative); RBC Urine 0-2 /hpf (0-2); Specific Grav Ur 1.024 (1.001-1.035); Squamous Epithelial Cell Urine None Seen /hpf (Few); WBC Urine 0-5 /hpf (0-3)
--- NOTE | 2025-02-05 17:33 | ECG_ITS ---
Test Date: 2025-02-05 17:43:18 Measurements Intervals [place] Rate: 74 P: 91 NV: 130 QRS: 47 QRSD: 82 T: 60 QT: 341 QTc: 379 Interpretive Statements SINUS RHYTHM WITH OCCASIONAL SUPRAVENTRICULAR PREMATURE COMPLEXES SEPTAL MYOCARDIAL INFARCTION , PROBABLY OLD [40+ ms Q WAVE IN V1/V2] Compared to ECG 02/05/2025 14:23:59 NO SIGNIFICANT CHANGES Electronically Signed On 02-06-2025 16:43:42 CDT by Isis Farah M.D.
[2025-02-05] MEDS: FUROSEMIDE INJ 40 MG/4 ML VIAL IV PUSH (17:55)
[2025-02-05 18:01] LABS: Troponin I 0.021 ng/mL (0.000-0.034)
--- NOTE | 2025-02-05 19:07 | P.HP_ITS ---
H&P: HPI History of Present Illness Date/Time: 02/05/25 19:07 Chief Complaint: altered mental status weakness Narrative: This is a 79-year-old female with a significant past medical history of right triple negative breast cancer status post mastectomy now with Mets to the brain, anxiety, adrenal insufficiency, GERD, hypertension, osteoarthritis, hyperlipidemia, asthma, hypothyroidism, arthritis who presented to the hospital for evaluation of altered mental status and weakness. Most of the history of presenting illness was obtained from the patient's and medical record. stated that after her diagnosis last year, she did 4 rounds of chemotherapy, followed by 30 days of radiation and 2 round of oral chemo. She was in her first week of oral chemo when she started having confusion and for getting names, even her spouses name. He stopped giving her the oral chemotherapy due to the AMS and discussed this with Dr. Trujillo who ordered a Brain MRI which shown 3 metastatic lesions in the brain. She is suppose to start radiation with Dr. Maldonado for the 3 lesions on the brain, likely as a palliative service. However, the was having a hard time caring for her at home and brought her here for potential placement. Workup in the hospital included head CT which was negative for any acute intracranial process, showed 3 previously noted small enhancing lesions suspicious for metastatic disease and prominent on prior MRI, mild scattered white matter hypoattenuation consistent with chronic small-vessel ischemic disease. Initial labs showed a white blood cell count of 12.4, creatinine 1.12, EGFR 47, total bili 1.5, troponin 0.043> 0.021, proBNP 1810, TSH 1.350. UA was obtained and only showed 1+ urine protein, otherwise negative. EKG showed sinus rhythm with supraventricular premature complexes with a rate of 74, QTC 379. Patient was given 40 mg IV push Lasix while in the ED. Spoke with about code status and he wishes her to be DNR/DNI considering her garcia with breast cancer with metastatic disease to the brain. Review of Systems Review of Systems: All systems reviewed & are unremarkable except as noted in HPI and below PMFSH Past Medical History Medical History Situational anxiety Secondary adrenal insufficiency Postmenopausal Pericardial effusion Chronic GERD Benign hypertension Cervical disc disease Sacroiliitis jun 2014 BMI 31.0-31.9,adult 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ne Osteoarthritis, multiple sites Mild intermittent asthma, uncomplicated Mixed hyperlipidemia Hypothyroidism (acquired) Adrenal insufficiency Asthma Arthritis Hypertension Thyroid disease Surgical History Surgical History Hx of right mastectomy 02/11/24 H/O: hysterectomy 2012 Hx of right heart catheterization 2007 History of knee replacement 2019 H/O Spinal surgery Cervical discectomy 2017 H/O breast biopsy 2008 Family History Family History Father Family history of hypercholesterolemia Family history of cardiovascular disease Acute myocardial infarction Family history of Alzheimer's disease Family history of coronary artery disease Mother Family history of hypercholesterolemia Sibling Family history of hypercholesterolemia Malignant neoplasm of prostate Grandparent Family history of cardiac disorder Malignant neoplasm of prostate Other Family history of congestive heart failure Family history of elevated blood lipids Family history of malignant neoplasm of breast in first degree relative Hypertension Social History Social History Smoking status: Never smoker Second hand tobacco smoke exposure: No Alcohol intake: never Substance use: never Substance use type: does not use Do You Feel Safe in your Home?: Yes Lack of Transportation: No Lack of Food: Never True Current Housing: I Have Housing Concerned About Future Housing: No Difficulty Paying Gas/Electric Bills: No Difficulty Paying for Meds: No Currently Unemployed: No Education: High School Diploma/GED Difficulty w/ Childcare or Family Care: No Living arrangements: with family Occupation/Education: retired Gender identity (if verbalized by the patient): Female Sexual Orientation (if Verbalized by the Patient): Straight or Heterosexual Spiritual care concerns: No Agree to blood products: Yes Meds Home Medications and Allergies Home Medications ?Medication ?Instructions ?Recorded ?Confirmed ?Type acetaminophen 325 mg capsule 325 mg PO Q6H PRN Pain (Scale 07/06/23 09/25/24 History (Tylenol) Score 4-6) albuterol sulfate 90 mcg/actuation 1 puff inhalation Q4H PRN 03/16/24 09/25/24 Rx aerosol inhaler Shortness Of Breath Or Wheezing #8.5 grams montelukast 10 mg tablet 10 mg PO DAILY #90 tabs 08/23/24 02/05/25 Rx prednisone 1 mg tablet 5 mg (5 x 1 mg) PO DAILY 90 days 09/13/24 09/25/24 Rx #450 tabs levothyroxine 75 mcg tablet See Rx Instructions .Route 01/20/25 02/05/25 Rx .COMPLEX #95 tabs potassium chloride 10 mEq 10 meq PO DAILY 02/05/25 02/05/25 History tablet,extended release Allergies Allergy/AdvReac Type Severity Reaction Status Date / Time No Known Allergies Allergy Verified 09/25/24 13:26 Vital Signs Vital Signs - 24 hr 02/05/25 12:27 02/05/25 14:42 Temperature 97.6 F Pulse Rate 65 89 Respiratory Rate 17 19 Blood Pressure 148/81 H 193/90 H Pulse Oximetry 99 96 Oxygen Delivery Room Air Exam Narrative: General: malnourished, emaciated Head: atraumatic, no encephalopathy Eyes: PERRLA, sclera clear ENT: excessively dry mucous membranes, nasal passages clear, missing teeth Neck: supple, no JVD, no adenopathy, trachea midline Cardiac: Normal S1 and S2. No murmur, gallops or friction rubs, peripheral pulses intact. Respiratory: Lungs clear to auscultation, no adventitious lung sounds, currently on room air Gastrointestinal: soft, non-distended, non-tender, normoactive bowel sounds. : voiding without difficulty. Extremities: moves all extremities well, mild bilateral lower extremity edema Skin: clean, dry, intact. No wounds or lesions. Neuro: Alert, confused,cranial nerves intact, no neuro deficits. Psych: yelling out at times, pulling at gown H&P: Results Labs Labs: Short CBC 02/05/25 Range/Units 14:39 WBC 12.3 H (4.5-10.0) K/mm3 Hgb 12.8 D (12.0-15.0) g/dL Hct 40.4 (37.0-47.0) % Plt Count 198 (150-375) k/mm3 BMP 02/05/25 14:39 Sodium 142 Potassium 4.6 Chloride 104 Carbon Dioxide 30 BUN 38 H D Creatinine 1.12 H Glucose 97 Calcium 9.6 Cardiac Enzymes 02/05/25 02/05/25 Range/Units 14:39 17:32 Troponin I 0.043 H* 0.021 D (0.000-0.034) ng/mL Liver Function 02/05/25 Range/Units 14:39 Total Bilirubin 1.5 H (0.2-1.3) mg/dL AST 29 (14-36) U/L ALT 22 (6-35) U/L Alkaline Phosphatase 94 (38-126) U/L Albumin 3.8 (3.5-5.1) g/dL Urine 02/05/25 Range/Units 16:47 Urine Color Yellow (Yellow) Urine Appearance Clear (Clear) Urine pH 5.0 (5.0-9.0) Ur Specific [place] 1.024 (1.001-1.035) Urine Protein 1+ H (Negative) mg/dL Urine Glucose (UA) Negative (Negative) mg/dL Imaging CT scan - head: Radiologist's impression: EXAMINATION: CT brain wo con DATE: 02/05/2025 13:14 INDICATION: Altered mental status TECHNIQUE: Computed tomography (CT) of the head was performed without intravenous contrast. Sagittal and coronal reconstructions were performed. The mA was adjusted according to patient size. Iterative reconstruction technique was employed. The dose-length product was 1210.67 mGy-cm. COMPARISON: Brain MR dated 02/01/2025 FINDINGS: Evaluation mildly limited by some streak and motion artifact. The small enhancing lesions identified on the prior brain MR are indiscernible from the surrounding brain parenchyma on the noncontrast CT imaging. No acute intracranial hemorrhage, acute infarction or abnormal extra axial fluid collection. There is mild scattered white matter hypoattenuation consistent with chronic small vessel ischemic disease. Ventricles are normal and symmetric. Changes of bilateral intraocular lens replacement. The orbits, paranasal sinuses and mastoid air cells are normal. IMPRESSION: 1. No acute intracranial process. Evaluation mildly limited by some streak and motion artifact. 2. The 3 previously noted small enhancing lesions on prior MRI, suspicious for metastatic disease are indistinct serosal both in the surrounding brain parenchy ma on the current noncontrast CT. 3. Mild scattered white matter hypoattenuation consistent with chronic small vessel ischemic disease. Reviewed, dictated and finalized at location A. Assessment and Plan Assessment and plan (1) Altered mental status: Code(s): R41.82 - Altered mental status, unspecified Status: Acute Assessment and Plan: * continue neuro checks * head CT showing metastatic disease * sodium 142, glucose 97 * UA showed 1+ urine protein, otherwise negative (2) Weakness: Code(s): R53.1 - Weakness Status: Acute Assessment and Plan: * PT and OT ordered * care coordination consulted for placement (3) Invasive carcinoma of breast: Code(s): C50.919 - Malignant neoplasm of unspecified site of unspecified female breast Status: Acute Assessment and Plan: patient was diagnosed with triple negative right breast cancer and had a mastectomy on 02/11/2024. She is a patient of Dr. Trujillo and finished 4 rounds of chemotherapy followed by 30 days of radiation [address] Dr. Maldonado, followed by 2 weeks worth of oral chemotherapy in which she finished 1 week and then became altered /confused. Patient had MRI on 02/01/2025 which shown 3 brain masses consistent with metastatic disease and there is a plan in place for her to do radiation with Dr. Maldonado on these lesions, likely palliative. * history Triple negative right breast cancer status post simple mastectomy on 02/11/[address] Locke. * S/P chemotherapy with Dr. Trujillo and Radiation with Dr. Maldonado>>[facility] * Recently diagnosed with metastatic disease to the brain. * brain MRI on 02/01/2025 showed 3 brain masses consistent with metastatic disease * head CT from today confirming 3 brain masses consistent with metastatic disease, no acute intracranial abnormality, showed mild scattered white matter hypoattenuation consistent with chronic small-vessel ischemic disease * Patient now DNR/DNI (4) Triple negative breast cancer: Code(s): C50.919 - Malignant neoplasm of unspecified site of unspecified female breast Status: Acute Assessment and Plan: see above plan of care (5) Adrenal insufficiency: Code(s): E27.40 - Unspecified adrenocortical insufficiency Status: Acute Assessment and Plan: * continue prednisone * cortisol stimulation test ordered (6) Primary hypertension: Code(s): I10 - Essential (primary) hypertension Status: Acute Assessment and Plan: * blood pressure ranging 126/57- 193/90 * Hydralazine ordered for systolic greater than 180 (7) Hypothyroidism (acquired): Code(s): E03.9 - Hypothyroidism, unspecified Status: Acute Assessment and Plan: * continue Synthroid (8) Chronic GERD: Code(s): K21.9 - Gastro-esophageal reflux disease without esophagitis Status: Acute Assessment and Plan: * start Protonix Quality VTE Prophylaxis VTE prophylaxis: pharmacologic ordered Hospitalist MIPS Advance Care Plan I have confirmed that the patient's Advanced Care Plan is present, code status is documented, or surrogate decision maker is listed in patient medical record.: Yes Medication Reconciliation I have utilized all available resources to obtain, update and review the patients current medications (includes all prescriptions, OTC, herbals, cannabis, and nutritional supplements).: Yes
--- NOTE | 2025-02-05 20:05 | PC.NURSE ---
radiology attempts multiple times to get CXR on patient with no success. provider was made aware.
[2025-02-05 20:17] LABS: Thyroid Stimulating Hormone 0.664 uIU/mL (0.465-4.680)
[2025-02-05] MEDS: COSYNTROPIN 0.25 MG/ML VIAL IV PUSH (21:19)
[2025-02-05 22:12] LABS: Cortisol Baseline 4.88 ug/dL
[2025-02-06 03:08] VITALS: BP 153/94; PULSE 56; RESP 18; TEMP 36.6; O2SAT 95
[2025-02-06 05:38] LABS: Basophils Percent Auto 0.1 % (0.2-1.2); Hematocrit 40.1 % (37.0-47.0); Hemoglobin 12.8 g/dL (12.0-15.0); Immature Granulocyte Absolute 0.07 K/mm3 (0.00-0.031); Immature Granulocyte Percent A 0.6 % (0-0.5); Lymphocytes Absolute Auto 0.66 K/mm3 (0.9-3.2); Lymphocytes Percent Auto 5.2 % (18.3-44.2); Mean Corpuscular HGB Conc 31.9 g/dl (32-36); Mean Corpuscular Hemoglobin 31.2 pg (26-34); Mean Corpuscular Volume 97.8 fl (80-100); Mean Platelet Volume 11.1 fl (7.4-10.4); Monocytes Percent Auto 7.9 % (2.6-8.5); Neutrophils Absolute Auto 10.9 K/mm3 (1.3-6.7); Neutrophils Percent Auto 86.2 % (45.5-73.1); Platelet Count Result 186 k/mm3 (150-375); Red Cell Distribution Width 20.2 % (11.5-14.5); White Blood Count 12.6 K/mm3 (4.5-10.0)
[2025-02-06 06:04] LABS: Alanine Aminotransferase 22 U/L (6-35); Albumin Level 3.5 g/dL (3.5-5.1); Alkaline Phosphatase 73 U/L (38-126); Anion Gap 8 mmol/L (4-12); Aspartate Amino Transferase 34 U/L (14-36); Bilirubin,Total 1.7 mg/dL (0.2-1.3); Blood Urea Nitrogen 43 mg/dL (7-17); Calcium 9.1 mg/dL (8.4-10.2); Carbon Dioxide 30 mmol/L (22-30); Chloride 101 mmol/L (98-107); Estimated CRCL calculation 33 ml/min; Estimated Glomerular Filt Rate 56; Glucose 90 mg/dL (65-110); Sodium 139 mmol/L (137-145)
[2025-02-06 08:00] VITALS: BP 132/86; PULSE 103; RESP 18; TEMP 35.7; O2SAT 92
--- NOTE | 2025-02-06 08:24 | P.PNIM_ITS ---
Progress Note: A&P Assessment and Plan (1) Altered mental status: Code(s): R41.82 - Altered mental status, unspecified Status: Acute Assessment and Plan: * continue neuro checks * head CT showing metastatic disease * sodium 142, glucose 97 * UA showed 1+ urine protein, otherwise negative * pt is dnr and dandy wants placement as he cannot take care of her (2) Weakness: Code(s): R53.1 - Weakness Status: Acute Assessment and Plan: * PT and OT ordered * care coordination consulted for placement (3) Invasive carcinoma of breast: Code(s): C50.919 - Malignant neoplasm of unspecified site of unspecified female breast Status: Acute Assessment and Plan: * history Triple negative right breast cancer status post simple mastectomy on 02/11/[address] Locke. * S/P chemotherapy with Dr. Trujillo and Radiation with Dr. Maldonado>>[facility] * Recently diagnosed with metastatic disease to the brain. * brain MRI on 02/01/2025 showed 3 brain masses consistent with metastatic disease * head CT from today confirming 3 brain masses consistent with metastatic disease, no acute intracranial abnormality, showed mild scattered white matter hypoattenuation consistent with chronic small-vessel ischemic disease * Patient now DNR/DNI * care coordination is consulted for placement (4) Triple negative breast cancer: Code(s): C50.919 - Malignant neoplasm of unspecified site of unspecified female breast Status: Acute Assessment and Plan: see above plan of care (5) Adrenal insufficiency: Code(s): E27.40 - Unspecified adrenocortical insufficiency Status: Acute Assessment and Plan: * continue prednisone * cortisol stimulation test ordered prior (6) Primary hypertension: Code(s): I10 - Essential (primary) hypertension Status: Acute Assessment and Plan: * blood pressure ranging 126/57- 193/90 * Hydralazine ordered for systolic greater than 180 (7) Hypothyroidism (acquired): Code(s): E03.9 - Hypothyroidism, unspecified Status: Acute Assessment and Plan: * continue Synthroid (8) Chronic GERD: Code(s): K21.9 - Gastro-esophageal reflux disease without esophagitis Status: Acute Assessment and Plan: * start Protonix Time Spent With Patient Time with patient: 25 - 35 minutes Subjective Date/time seen: 02/06/25 08:24 Interval history: 79-year-old female with a significant past medical history of right triple negative breast cancer status post mastectomy now with Mets to the brain, anxiety, adrenal insufficiency, GERD, hypertension, osteoarthritis, hyperlipidemia, asthma, hypothyroidism, arthritis who presented to the hospital for evaluation of altered mental status and weakness. Pt is seen and examined. She is frail, alert to self but not able to provide much info. Appears comfortable. wants her to be comfortable and find placement. Review of Systems Review of Systems: All systems reviewed & are unremarkable except as noted in HPI and below Exam Narrative: General: malnourished, emaciated Head: atraumatic, no encephalopathy Eyes: PERRLA, sclera clear ENT: excessively dry mucous membranes, nasal passages clear, missing teeth Neck: supple, no JVD, no adenopathy, trachea midline Cardiac: Normal S1 and S2. No murmur, gallops or friction rubs, peripheral pulses intact. Respiratory: Lungs clear to auscultation, no adventitious lung sounds, currently on room air Gastrointestinal: soft, non-distended, non-tender, normoactive bowel sounds. : voiding without difficulty. Extremities: moves all extremities well, mild bilateral lower extremity edema Skin: clean, dry, intact. No wounds or lesions. Neuro: Alert, confused,cranial nerves intact, no neuro deficits. Psych: yelling out at times, pulling at gown Objective Data Vital Signs Vital Signs: Vital Signs - 24 hr 02/05/25 12:27 02/05/25 14:42 02/05/25 18:11 Temperature 97.6 F Pulse Rate 65 89 Respiratory Rate 17 19 22 H Blood Pressure 148/81 H 193/90 H Pulse Oximetry 99 96 Oxygen Delivery Room Air 02/05/25 18:16 02/05/25 19:31 02/05/25 21:21 Temperature 97.8 F Pulse Rate 79 55 L Respiratory Rate 19 18 20 Blood Pressure 171/120 H 150/99 H 142/83 H Pulse Oximetry 98 96 95 Oxygen Delivery 02/05/25 23:10 02/06/25 03:08 Temperature 97.8 F 97.8 F Pulse Rate 56 L Respiratory Rate 18 Blood Pressure 153/94 H Pulse Oximetry 95 Oxygen Delivery Intake/Output Intake/Output: Intake & Output 02/03/25 02/04/25 02/05/25 02/06/25 23:59 23:59 23:59 23:59 Intake Total 0 Output Total 300 Balance -300 Meds/Results Medications: Active Medications Generic Name Dose Route Start Last Admin Trade Name Freq PRN Reason Stop Dose Admin Acetaminophen 650 mg 02/05/25 19:21 Acetaminophen 325 Mg Tablet PO Q4H PRN Mild Pain (1-3) or Fever Enoxaparin Sodium 40 mg 02/06/25 09:00 Enoxaparin 40 Mg/0.4 Ml Syringe SUB-Q DAILY [facility] Hydralazine HCl 10 mg 02/05/25 19:19 Hydralazine Hcl 20 Mg/Ml Vial IV PUSH Q8H PRN Blood Pressure - High Ondansetron HCl 4 mg 02/05/25 19:21 Ondansetron Inj 4 Mg/2 Ml Vial IV PUSH Q6H PRN Nausea And Vomiting Pantoprazole Sodium 40 mg 02/06/25 09:00 Pantoprazole 40 Mg Tablet PO QAM [facility] Radiology Results: ITS Impressions Head CT 02/05/25 13:19 IMPRESSION: 1. No acute intracranial process. Evaluation mildly limited by some streak and motion artifact. 2. The 3 previously noted small enhancing lesions on prior MRI, suspicious for metastatic disease are indistinct serosal both in the surrounding brain parenchyma on the current noncontrast CT. 3. Mild scattered white matter hypoattenuation consistent with chronic small vessel ischemic disease. Labs Labs: Laboratory Results - last 24 hr 02/05/25 02/05/25 02/05/25 14:38 14:39 16:47 WBC 12.3 H RBC 4.11 L Hgb 12.8 D Hct 40.4 MCV 98.3 MCH 31.1 MCHC 31.7 L RDW 20.7 H Plt Count 198 MPV 10.8 H Immature Gran % (Auto) Not Reportable Neut % (Auto) Not Reportable Lymph % (Auto) Not Reportable Garrett % (Auto) Not Reportable Eos % (Auto) Not Reportable Baso % (Auto) Not Reportable Lymph # (Auto) Not Reportable [place] # (Auto) Not Reportable Eos # (Auto) Not Reportable Baso # (Auto) Not Reportable Abs Immat Gran (auto) Not Reportable Absolute Neuts (auto) Not Reportable Absolute Nucleated RBC Not Reportable Total Counted 100 Neutrophils % (Manual) 89 H Band Neutrophils % 0 Lymphocytes % (Manual) 5.0 L Monocytes % (Manual) 6 Nucleated RBC % Not Reportable Abs Neuts (Manual) 10.94 H Abs Lymphs (Manual) 0.61 L Abs Monocytes (Manual) 0.73 Platelet Estimate Adequate Hypochromasia 1+ Anisocytosis 3+ Schistocytes None seen PT 14.3 INR 1.1 APTT 20.4 L Sodium 142 Potassium 4.6 Chloride 104 Carbon Dioxide 30 Anion Gap 8 BUN 38 H D Creatinine 1.12 H Estim Creat Clear Calc 31 Estimated GFR 47 L Glucose 97 POC Capillary Glucose 98 Calcium 9.6 Total Bilirubin 1.5 H AST 29 ALT 22 Alkaline Phosphatase 94 Troponin I 0.043 H* NT-Pro-B Natriuret Pep 1810 H Total Protein 7.0 Albumin 3.8 TSH 1.350 Cortisol Baseline Cortisol Resp 30 Min Cortisol Resp 60 Min Urine Color Yellow Urine Appearance Clear Urine pH 5.0 Ur Specific [place] 1.024 Urine Protein 1+ H Urine Glucose (UA) Negative Urine Ketones Negative Ur Blood (Man) Negative Urine Nitrate Negative Urine Bilirubin Negative Urine Urobilinogen 1.0 Leukocyte Esterase Rfl Negative Urine RBC 0-2 Urine WBC 0-5 Ur Squamous Epith Cells None seen Urine Bacteria None seen Urine Casts 3-5 Hyaline Casts Present 02/05/25 02/05/25 02/05/25 17:32 21:18 22:09 WBC RBC Hgb Hct MCV MCH MCHC RDW Plt Count MPV Immature Gran % (Auto) Neut % (Auto) Lymph % (Auto) Garrett % (Auto) Eos % (Auto) Baso % (Auto) Lymph # (Auto) Garrett # (Auto) Eos # (Auto) Baso # (Auto) Abs Immat Gran (auto) Absolute Neuts (auto) Absolute Nucleated RBC Total Counted Neutrophils % (Manual) Band Neutrophils % Lymphocytes % (Manual) Monocytes % (Manual) Nucleated RBC % Abs Neuts (Manual) Abs Lymphs (Manual) Abs Monocytes (Manual) Platelet Estimate Hypochromasia Anisocytosis Schistocytes PT INR APTT Sodium Potassium Chloride Carbon Dioxide Anion Gap BUN Creatinine Estim Creat Clear Calc Estimated GFR Glucose POC Capillary Glucose Calcium Total Bilirubin AST ALT Alkaline Phosphatase Troponin I 0.021 D NT-Pro-B Natriuret Pep Total Protein Albumin TSH 0.664 Cortisol Baseline 4.88 Cortisol Resp 30 Min Cortisol Resp 60 Min 15.60 Urine Color Urine Appearance Urine pH Ur Specific [place] Urine Protein Urine Glucose (UA) Urine Ketones Ur Blood (Man) Urine Nitrate Urine Bilirubin Urine Urobilinogen Leukocyte Esterase Rfl Urine RBC Urine WBC Ur Squamous Epith Cells Urine Bacteria Urine Casts Hyaline Casts 02/05/25 02/06/25 22:42 05:27 WBC 12.6 H RBC 4.10 L Hgb 12.8 Hct 40.1 MCV 97.8 MCH 31.2 MCHC 31.9 L RDW 20.2 H Plt Count 186 MPV 11.1 H Immature Gran % (Auto) 0.6 H Neut % (Auto) 86.2 H Lymph % (Auto) 5.2 L Garrett % (Auto) 7.9 Eos % (Auto) 0.0 Baso % (Auto) 0.1 L Lymph # (Auto) 0.66 L Garrett # (Auto) 1.0 H Eos # (Auto) 0.0 Baso # (Auto) 0.0 Abs Immat Gran (auto) 0.07 H Absolute Neuts (auto) 10.9 H Absolute Nucleated RBC 0.000 Total Counted Neutrophils % (Manual) Band Neutrophils % Lymphocytes % (Manual) Monocytes % (Manual) Nucleated RBC % 0.0 Abs Neuts (Manual) Abs Lymphs (Manual) Abs Monocytes (Manual) Platelet Estimate Hypochromasia Anisocytosis Schistocytes PT INR APTT Sodium 139 Potassium 4.0 Chloride 101 Carbon Dioxide 30 Anion Gap 8 BUN 43 H Creatinine 0.96 Estim Creat Clear Calc 33 Estimated GFR 56 L Glucose 90 POC Capillary Glucose Calcium 9.1 Total Bilirubin 1.7 H AST 34 ALT 22 Alkaline Phosphatase 73 Troponin I NT-Pro-B Natriuret Pep Total Protein 7.0 Albumin 3.5 TSH Cortisol Baseline Cortisol Resp 30 Min 18.30 Cortisol Resp 60 Min Urine Color Urine Appearance Urine pH Ur Specific [place] Urine Protein Urine Glucose (UA) Urine Ketones Ur Blood (Man) Urine Nitrate Urine Bilirubin Urine Urobilinogen Leukocyte Esterase Rfl Urine RBC Urine WBC Ur Squamous Epith Cells Urine Bacteria Urine Casts Hyaline Casts Quality VTE Prophylaxis VTE prophylaxis: pharmacologic ordered
[2025-02-06 12:11] VITALS: BMI 22.6
[2025-02-06 14:00] VITALS: BP 137/79
--- NOTE | 2025-02-06 14:08 | P.CDI_ITS ---
CDI Query Clarification Request BMI: 22.7 Nutritional Diagnostic Statement: Please refer to the comprehensive nutrition assessment for further information. If you agree with diagnosis of Severe Protein Calorie Malnutrition as related to inadequate protein energy intake with increased protein-energy needs in setting of chronic disease as evidenced by minimal oral intake for > 1-2 months; significant weight loss of 18% (26 ibs) in 5 months; moderate subcutaneous fat loss (orbital fat pads) and muscle wasting (temporalis). Please specify severity if known: * Mild * Moderate * Severe * Other/Unknown <Hannah Abdi RN - Last Filed: 02/06/25 14:09> Provider Comments moderate <Ruth Ann Garay APRN - Last Filed: 02/06/25 14:29>
--- NOTE | 2025-02-06 14:24 | PCPTNOTE ---
PT evaluation attempted, patient lethargic, when awakened, appeared confused, disoriented and continue to demo lethargy. adamantly refused therapy. 14:00
[2025-02-06 20:00] VITALS: PULSE 82; RESP 18; O2SAT 94
[2025-02-06 20:21] VITALS: O2SAT 95
[2025-02-06 21:40] VITALS: BP 133/84; PULSE 82; RESP 18; TEMP 36.5; O2SAT 94
[2025-02-07 05:50] LABS: Basophils Percent Auto 0.1 % (0.2-1.2); Eosinophils Percent Auto 0.2 % (0-4.4); Hematocrit 41.6 % (37.0-47.0); Hemoglobin 13.2 g/dL (12.0-15.0); Immature Granulocyte Absolute 0.07 K/mm3 (0.00-0.031); Immature Granulocyte Percent A 0.6 % (0-0.5); Lymphocytes Absolute Auto 0.59 K/mm3 (0.9-3.2); Lymphocytes Percent Auto 5.2 % (18.3-44.2); Mean Corpuscular HGB Conc 31.7 g/dl (32-36); Mean Corpuscular Hemoglobin 31.3 pg (26-34); Mean Corpuscular Volume 98.6 fl (80-100); Monocytes Absolute Auto 0.8 K/mm3 (0.1-0.6); Monocytes Percent Auto 6.9 % (2.6-8.5); Platelet Count Result 184 k/mm3 (150-375); Red Blood Count 4.22 M/mm3 (4.2-5.4); White Blood Count 11.5 K/mm3 (4.5-10.0)
[2025-02-07 06:00] VITALS: BP 135/84; PULSE 88; RESP 18; TEMP 36.6; O2SAT 93
[2025-02-07 06:02] LABS: Alanine Aminotransferase 20 U/L (6-35); Albumin Level 3.3 g/dL (3.5-5.1); Alkaline Phosphatase 85 U/L (38-126); Anion Gap 9 mmol/L (4-12); Aspartate Amino Transferase 35 U/L (14-36); Blood Urea Nitrogen 40 mg/dL (7-17); Calcium 8.9 mg/dL (8.4-10.2); Carbon Dioxide 27 mmol/L (22-30); Chloride 105 mmol/L (98-107); Estimated CRCL calculation 33 ml/min; Estimated Glomerular Filt Rate 58; Glucose 91 mg/dL (65-110); Potassium 3.6 mmol/L (3.4-5.0); Sodium 141 mmol/L (137-145)
--- NOTE | 2025-02-07 09:53 | PCPTNOTE ---
Per RN patient will be going hospice on discharge. Therapy orders to be stopped.
--- NOTE | 2025-02-07 10:17 | P.PNIM_ITS ---
Progress Note: A&P Assessment and Plan (1) Altered mental status: Code(s): R41.82 - Altered mental status, unspecified Status: Acute Assessment and Plan: Per chart review, patient was in her first week of oral chemo when she started having confusion and forgetting names. stopped giving her the oral chemotherapy due to the AMS and discussed this with Dr. Trujillo who ordered a Brain MRI which shown 3 metastatic lesions in the brain. 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 Locke. * S/P chemotherapy with Dr. Trujillo and Radiation with Dr. 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 * brain MRI on 02/01/2025 showed 3 brain masses consistent with metastatic disease * head CT from today confirming 3 brain masses consistent with metastatic disease, no acute intracranial abnormality, showed mild scattered white matter hypoattenuation consistent with chronic small-vessel ischemic disease * Patient now DNR/DNI * care coordination is consulted for placement and hospice care (4) Triple negative breast cancer: Code(s): C50.919 - Malignant neoplasm of unspecified site of unspecified female breast Status: Acute Assessment and Plan: see above plan of care (5) Adrenal insufficiency: Code(s): E27.40 - Unspecified adrenocortical insufficiency Status: Acute Assessment and Plan: * continue prednisone (6) Primary hypertension: Code(s): I10 - Essential (primary) hypertension Status: Acute Assessment and Plan: * blood pressures currently stable with systolics 130s * Hydralazine ordered for systolic greater than 180 * Continue to monitor (7) Hypothyroidism (acquired): Code(s): E03.9 - Hypothyroidism, unspecified Status: Acute Assessment and Plan: * continue Synthroid (8) Chronic GERD: Code(s): K21.9 - Gastro-esophageal reflux disease without esophagitis Status: Acute Assessment and Plan: * start Protonix Subjective Date/time seen: 02/07/25 10:17 Interval history: 79-year-old female with a significant past medical history of right triple negative breast cancer status post mastectomy now with Mets to the brain, anxiety, adrenal insufficiency, GERD, hypertension, osteoarthritis, hyperlipidemia, asthma, hypothyroidism, arthritis who presented to the hospital for evaluation of altered mental status and weakness. Exam Narrative: AF General: well nourished, well-developed female in no acute respiratory distress who is nontoxic appearing, lying semi recumbent in bed. HEENT: Normocephalic. Atraumatic. Pupils equal round reactive to light. Extraocular movement intact. Sclera clear and anicteric. Nares patent. No oral lesions. Moist mucous membranes. Tongue is midline. Palate wayne symmetrically. No facial asymmetry. Neck: Neck was supple. No dominant adenopathy, thyromegaly or masses. 2+ carotid upstrokes without bruits. Chest: Lungs are clear to auscultation bilaterlly. No wheezes or crackles. CV: Heart was regular rate and rhythm. S1-S2. No murmurs, gallops, or rubs. Abd: Abdomen was soft. Nontender. Nondistended. Postive bowel sounds. No organomegaly or masses. Ext: No clubbing, cyanosis, or edema. 2+ DP pulses bilaterally. Neuro: Patient is alert and oriented x4. Strenth is 5/5 in both upper and lower extremities. Cranial nerves 2-12 are intact. Speech is clear. Psych: Normal nood and affect. Patient is pleasant and cooperative. Skin: Warm and dry. No rashes noted. Objective Data Vital Signs Vital Signs: Vital Signs - 24 hr 02/06/25 14:00 02/06/25 20:00 02/06/25 20:21 Temperature Pulse Rate 82 Respiratory Rate 18 Blood Pressure 137/79 Pulse Oximetry 94 95 Oxygen Delivery Room Air Room Air Fraction of Inspired Oxygen 21 21 02/06/25 21:40 02/07/25 06:00 02/07/25 08:00 Temperature 97.7 F 97.9 F Pulse Rate 82 88 Respiratory Rate 18 18 Blood Pressure 133/84 135/84 Pulse Oximetry 94 93 Oxygen Delivery Room Air Fraction of Inspired Oxygen Intake/Output Intake/Output: Intake & Output 02/04/25 02/05/25 02/06/25 02/07/25 23:59 23:59 23:59 23:59 Intake Total 0 0 Output Total 550 Balance -550 0 Meds/Results Medications: Active Medications Generic Name Dose Route Start Last Admin Trade Name Freq PRN Reason Stop Dose Admin Acetaminophen 650 mg 02/05/25 19:21 Acetaminophen 325 Mg Tablet PO Q4H PRN Mild Pain (1-3) or Fever Enoxaparin Sodium 40 mg 02/06/25 09:00 02/07/25 08:02 Enoxaparin 40 Mg/0.4 Ml Syringe SUB-Q Not Given DAILY [facility] Hydralazine HCl 10 mg 02/05/25 19:19 Hydralazine Hcl 20 Mg/Ml Vial IV PUSH Q8H PRN Blood Pressure - High Ondansetron HCl 4 mg 02/05/25 19:21 Ondansetron Inj 4 Mg/2 Ml Vial IV PUSH Q6H PRN Nausea And Vomiting Pantoprazole Sodium 40 mg 02/06/25 09:00 02/07/25 08:02 Pantoprazole 40 Mg Tablet PO Not Given QAM [facility] Radiology Results: ITS Impressions Head CT 02/05/25 13:19 IMPRESSION: 1. No acute intracranial process. Evaluation mildly limited by some streak and motion artifact. 2. The 3 previously noted small enhancing lesions on prior MRI, suspicious for metastatic disease are indistinct serosal both in the surrounding brain parenchyma on the current noncontrast CT. 3. Mild scattered white matter hypoattenuation consistent with chronic small vessel ischemic disease. Labs Labs: Laboratory Results - last 24 hr 02/07/25 05:42 WBC 11.5 H RBC 4.22 Hgb 13.2 Hct 41.6 MCV 98.6 MCH 31.3 MCHC 31.7 L RDW 20.0 H Plt Count 184 MPV 11.0 H Immature Gran % (Auto) 0.6 H Neut % (Auto) 87.0 H Lymph % (Auto) 5.2 L [place] % (Auto) 6.9 Eos % (Auto) 0.2 Baso % (Auto) 0.1 L Lymph # (Auto) 0.59 L [place] # (Auto) 0.8 H Eos # (Auto) 0.0 Baso # (Auto) 0.0 Abs Immat Gran (auto) 0.07 H Absolute Neuts (auto) 10.0 H Absolute Nucleated RBC 0.000 Nucleated RBC % 0.0 Sodium 141 Potassium 3.6 Chloride 105 Carbon Dioxide 27 Anion Gap 9 BUN 40 H Creatinine 0.94 Estim Creat Clear Calc 33 Estimated GFR 58 L Glucose 91 Calcium 8.9 Total Bilirubin 2.0 H AST 35 ALT 20 Alkaline Phosphatase 85 Total Protein 6.0 L Albumin 3.3 L Quality VTE Prophylaxis VTE prophylaxis: pharmacologic ordered
[2025-02-07 13:12] LABS: SARS-CoV-2 RNA PCR Negative (Negative)
[2025-02-07 14:00] VITALS: BP 128/78; PULSE 89; RESP 12; TEMP 36.6; O2SAT 91
--- NOTE | 2025-02-07 14:07 | P.DS_ITS ---
DS: Admitting Diagnosis Discharge Date 02/07/2025 Admitting Diagnosis AMS Weakness Invasive carcinoma of breast Triple negative breast cancer Adrenal insufficiency Primary hypertension Hypothyroidism GERD DS: Discharge Diagnosis Discharge Diagnosis (1) Altered mental status: Code(s): R41.82 - Altered mental status, unspecified Status: Acute (2) Weakness: Code(s): R53.1 - Weakness Status: Acute (3) Invasive carcinoma of breast: Code(s): C50.919 - Malignant neoplasm of unspecified site of unspecified female breast Status: Acute (4) Triple negative breast cancer: Code(s): C50.919 - Malignant neoplasm of unspecified site of unspecified female breast Status: Acute (5) Adrenal insufficiency: Code(s): E27.40 - Unspecified adrenocortical insufficiency Status: Acute (6) Primary hypertension: Code(s): I10 - Essential (primary) hypertension Status: Acute (7) Hypothyroidism (acquired): Code(s): E03.9 - Hypothyroidism, unspecified Status: Acute (8) Chronic GERD: Code(s): K21.9 - Gastro-esophageal reflux disease without esophagitis Status: Acute DS: Summary Hospital Course Reason for hospitalization: AMS Weakness Invasive carcinoma of breast Triple negative breast cancer Adrenal insufficiency Primary hypertension Hypothyroidism GERD Hospital Course: 79-year-old female with a significant past medical history of right triple negative breast cancer status post mastectomy, radiation and chemo now with Mets to the brain, anxiety, adrenal insufficiency, GERD, hypertension, osteoarthritis, hyperlipidemia, asthma, hypothyroidism, arthritis who presented to the hospital for evaluation of altered mental status and weakness. Per chart review, patient was in her first week of oral chemo when she started having confusion and forgetting names. stopped giving her the oral chemotherapy due to the AMS and discussed this with Dr. Trujillo who ordered a Brain MRI which shown 3 metastatic lesions in the brain. Head CT on admission confirming 3 brain masses consistent with metastatic disease, no acute intracranial abnormality, showed mild scattered white matter hypoattenuation consistent with chronic small-vessel ischemic disease. During admission patient made a DNR/DNR and family met with [facility]. Moving forward family wished to proceed with hospice care. Patient discharged in a stable but terminal condition to SNF with [facility]. Time Spent with Patient Time attestation: Total time spent providing and/or coordinating discharge services: Time spent: Greater than 30 minutes Exam Narrative: AF HR 88 RR 18 SpO2 93 BP 135/84 General: female in no acute respiratory distress who is ill appearing, lying semi recumbent in bed. HEENT: Normocephalic. Atraumatic. Extraocular movement intact. Sclera clear and anicteric. No facial asymmetry. Chest: Lungs are clear to auscultation bilaterally. No wheezes or crackles. CV: Heart was regular rate and rhythm. Abd: Abdomen was soft. Nontender. Nondistended. Positive bowel sounds. Ext: No clubbing, cyanosis, or edema. DP pulses bilaterally. DS: Data Data Completed and Pending Completed studies during hospitalization: head ct Labs on day of discharge: Labs from last 24 hours 02/07/25 02/07/25 12:21 05:42 WBC 11.5 H RBC 4.22 Hgb 13.2 Hct 41.6 MCV 98.6 MCH 31.3 MCHC 31.7 L RDW 20.0 H Plt Count 184 MPV 11.0 H Immature Gran % (Auto) 0.6 H Neut % (Auto) 87.0 H Lymph % (Auto) 5.2 L [place] % (Auto) 6.9 Eos % (Auto) 0.2 Baso % (Auto) 0.1 L Lymph # (Auto) 0.59 L [place] # (Auto) 0.8 H Eos # (Auto) 0.0 Baso # (Auto) 0.0 Abs Immat Gran (auto) 0.07 H Absolute Neuts (auto) 10.0 H Absolute Nucleated RBC 0.000 Nucleated RBC % 0.0 Sodium 141 Potassium 3.6 Chloride 105 Carbon Dioxide 27 Anion Gap 9 BUN 40 H Creatinine 0.94 Estim Creat Clear Calc 33 Estimated GFR 58 L Glucose 91 Calcium 8.9 Total Bilirubin 2.0 H AST 35 ALT 20 Alkaline Phosphatase 85 Total Protein 6.0 L Albumin 3.3 L SARS-CoV-2 RNA (RT-PCR) Negative Discharge Plan Discharge Attending physician on discharge: Adri Goodwin Discharging Clinician: Rica Bailey Anticipated Discharge Date/Time: 02/07/25 14:02 Patient Disposition: Hospice - Medical Facility Activity: as tolerated Diet: as tolerated Discharge Instructions: Patient being discharged to [facility] with [facility] to make medication adjustments upon arrival Patient Instructions: Hospice Care (GEN) Patient Language: [place] Citizen Stand Alone Forms: General Discharge Information Discharge Medications: Continued potassium chloride 10 mEq tablet extended release 10 meq PO DAILY dexamethasone 4 mg tablet 4 mg PO Q12H Rx Instructions: with meals colestipol 1 gram tablet PO cholecalciferol (vitamin D3) [Vitamin D3] 25 mcg (1,000 unit) tablet,chewable 25 mcg PO DAILY montelukast 10 mg tablet 10 mg PO DAILY Qty: 90 3RF levothyroxine 75 mcg tablet See Rx Instructions .ROUTE .COMPLEX Qty: 95 1RF Dose Instruction: TAKE 1 TABLET BY MOUTH DAILY ON MONDAYS THRU SATURDAYS, 1/2 TABLET BY MOUTH O Wednesday Rx Instructions: TAKE 1 TABLET BY MOUTH DAILY ON MONDAYS THRU SATURDAYS, 1/2 TABLET BY MOUTH ON WEDNESDAY Date of admission: 02/06/25 07:49 Primary Care Provider: Yolanda Dougherty Admitting Provider: Cece Marks Attending physician on admission: Rica Bailey Condition: Terminal Hospitalist MIPS Heart Failure (Exclusion) Patient has history of Heart Transplant or Left Ventricular Assistive Device?: No IF YES, STOP HERE Heart Failure (Qualifier) Patient has current or prior documentation of LVEF less than or equal to 40%, or mod/servere depressed LVSF?: No IF NO, STOP HERE
== END 2025-02-07 15:50 | DRG 55 ==
LOC: ANHED 14:00 → ANH3MEDSUR 19:18 → ANH2MED 20:06
PROVIDERS: Nurse Practitioner Acute Care; Registered Nurse; Admitting Provider Hospitalist; Emergency Provider Emergency Medicine; PCP Family Medicine; Visit Provider Student in an Organized Health Care Education/Training Program
DX: C79.31 Secondary malignant neoplasm of brain (principal); E27.40 Unspecified adrenocortical insufficiency; E44.0 Moderate protein-calorie malnutrition; R53.1 Weakness; C50.919 Malignant neoplasm of unspecified site of unspecified female breast; I10 Essential (primary) hypertension; E03.9 Hypothyroidism, unspecified; K21.9 Gastro-esophageal reflux disease without esophagitis; R62.7 Adult failure to thrive; F41.9 Anxiety disorder, unspecified; E78.5 Hyperlipidemia, unspecified; M15.9 Polyosteoarthritis, unspecified; Z96.659 Presence of unspecified artificial knee joint; Z68.22 Body mass index [BMI] 22.0-22.9, adult; Z90.710 Acquired absence of both cervix and uterus; Z51.5 Encounter for palliative care
CPT/HCPCS: 36415; 70450; 80053; 81001; 82533; 82948; 83880; 84443; 84484; 85025; 85610; 85730; 87635; 93005; 96374; 96375; 99285; A9270; G0378; J0834; J1650; J1940